=== PATIENT | female | born 1955 | race Caucasian/White ===

== ENCOUNTER 2019-10-27 19:52 | Inpatient (IN) | payer MEDICARE, OTHER ==
[2019-10-27] MEDS ORDERED: NALOXONE 0.4 MG/ML 1 ML VIAL IV PRN (20:41)
[2019-10-27] MEDS ORDERED: ONDANSETRON 4 MG/2 ML VIAL IVP PRN (20:41)
--- NOTE | 2019-10-27 20:43 | ED ---
General Adult HPI - General Chief complaint: Abdominal Pain Stated complaint: Bowel Obstruction Time Seen by Provider: 10/27/19 19:53 Source: patient, family, RN notes reviewed, old records reviewed Mode of arrival: EMS - History of Present Illness Initial comments: 64-year-old female transferred from outside hospital with CT evidence of ileus and chief complaint of abdominal pain. Patient has previous history of ostomy status post reversal. She had an episode approximately one month ago where she had developed a small bowels ashen. This was treated conservatively without surgical intervention. She is presenting today with similar symptoms. She had been transferred for surgical evaluation. Patient stated that her pain is improved with time my evaluation. No history of vomiting. Denies nausea vomiting at the time my evaluation. No fever. - Related Data Home Medications Medication Instructions Recorded Confirmed Amiodarone HCl [Pacerone] 200 mg PO DAILY 09/16/19 09/16/19 Amitriptyline HCl [Elavil] 150 mg PO HS 09/16/19 09/16/19 Atorvastatin [Lipitor] 10 mg PO DAILY 09/16/19 09/16/19 Ergocalciferol [Vitamin D2 50,000 unit PO TU 09/16/19 09/16/19 (DRISDOL)] Folic Acid 1 mg PO DAILY 09/16/19 09/16/19 Furosemide [Lasix] 40 mg PO BID 09/16/19 09/16/19 Loperamide HCl [Loperamide] 4 mg PO BID 09/16/19 09/16/19 Montelukast [Singulair] 10 mg PO 09/16/19 09/16/19 OLANZapine 7.5 mg PO DAILY 09/16/19 09/16/19 Omeprazole [PriLOSEC] 40 mg PO BID 09/16/19 09/16/19 Potassium Chloride [Klor-Con 20] 20 meq PO QID 09/16/19 09/16/19 Pramipexole [Mirapex] 0.5 mg PO TID 09/16/19 09/16/19 Spironolactone 50 mg PO DAILY 09/16/19 09/16/19 Warfarin Sodium 1 mg PO SUMOWEFRSA 09/16/19 09/16/19 Warfarin [Coumadin] 2 mg PO DAILY 09/16/19 09/16/19 oxyCODONE HCL [Roxicodone] 15 mg PO TID PRN 09/16/19 09/16/19 Previous Rx's Medication Instructions Recorded Amoxic-Pot Clav 875-125Mg 1 tab PO Q12HR #20 tab 09/18/19 [Augmentin 875-125] Enoxaparin [Lovenox] 80 mg SQ Q12H #10 syringe 09/18/19 Allergies Allergy/AdvReac Type Severity Reaction Status Date / Time trazodone Allergy Rapid Verified 10/27/19 20:06 Heart Rate morphine AdvReac Unknown Verified 10/27/19 20:06 zolpidem [From Ambien] AdvReac Unknown Verified 10/27/19 20:06 Review of Systems ROS Statement: Those systems with pertinent positive or pertinent negative responses have been documented in the HPI. ROS Other: All systems not noted in ROS Statement are negative. Past Medical History Past Medical History: Chest Pain / Angina, Heart Failure, COPD, Renal Disease History of Any Multi-Drug Resistant Organisms: MRSA Date of last positivie culture/infection: 2016 MDRO Source:: right hand Past Surgical History: Back Surgery, Section, Cholecystectomy, Hysterectomy, Tonsillectomy Additional Past Surgical History / Comment(s): gastric bypass, ostomy reversal. , open heart Past Psychological History: No Psychological Hx Reported Smoking Status: Current every day smoker Past Alcohol Use History: None Reported Past Drug Use History: None Reported General Exam General appearance: alert, in no apparent distress Head exam: Present: atraumatic, normocephalic Eye exam: Present: normal appearance, PERRL ENT exam: Present: normal exam Neck exam: Present: normal inspection. Absent: tenderness, meningismus Respiratory exam: Present: normal lung sounds bilaterally. Absent: respiratory distress Cardiovascular Exam: Present: regular rate, normal rhythm GI/Abdominal exam: Present: soft. Absent: distended, tenderness, guarding Extremities exam: Present: normal inspection, normal capillary refill. Absent: pedal edema Back exam: Present: normal inspection Neurological exam: Present: alert, oriented X3, CN II-XII intact Psychiatric exam: Present: normal affect, normal mood Skin exam: Present: warm, dry, intact. Absent: cyanosis, diaphoretic, erythema Course Vital Signs 10/27/19 20:00 Temperature 98.3 F Pulse Rate 61 Respiratory 18 Rate Blood Pressure 126/83 O2 Sat by Pulse 97 Oximetry Medical Decision Making - Medical Decision Making 64-year-old female transferred for evaluation of illness and concern for developing small bowel obstruction. Patient states she had a bowel movement today and had some preceding diarrhea over the past several days. She denies vomiting. CT was performed at outside institution and was reported as ileus. She had normal CBC, stable hemoglobin. Stable vitals. She was transferred for surgical evaluation. Laboratory testing will be repeated in the morning. Patient will be kept nothing by mouth with IV fluids and pain control. I do not feel that she needs a nasogastric tube at this time. She has been admitted to internal medicine with surgery on consult. Case discussed with Dr. Flores. Disposition Clinical Impression: Abdominal pain, Ileus Disposition: ADMITTED IP TO THIS HOSP Condition: Stable Is patient prescribed a controlled substance at d/c from ED?: No Referrals: Almas Martin MD [Primary Care Provider] - 1-2 days Decision to Admit Reason: Admit from EC Decision Date: 10/27/19 Decision Time: 20:58
[2019-10-27] MEDS: SODIUM CHLORIDE 0.9% 1,000 ML IV SCH (21:43)
[2019-10-27] MEDS: HYDROmorphone 0.5 MG/0.5 ML SYRINGE IVP PRN (21:48)
[2019-10-28] MEDS: HYDROmorphone 0.5 MG/0.5 ML SYRINGE IVP PRN (01:13)
[2019-10-28] MEDS: ACETAMINOPHEN TAB 325 MG TAB PO PRN ×3 (06:00→22:19)
[2019-10-28 09:36] LABS: ALT 15 U/L (4-34); AST 35 U/L (14-36); African American GFR (CKD) >90 (>60 ml/min/1.73 sqM); Albumin 3.8 g/dL (3.5-5.0); Alkaline Phosphatase 100 U/L (38-126); Anion Gap 6 mmol/L; Blood Urea Nitrogen 10 mg/dL (7-17); Calcium 8.9 mg/dL (8.4-10.2); Carbon Dioxide 22 mmol/L (22-30); Chloride 107 mmol/L (98-107); Glucose 91 mg/dL (74-99); Magnesium 1.8 mg/dL (1.6-2.3); Non-African American GFR(CKD) >90 (>60 ml/min/1.73 sqM); Sodium 135 mmol/L (137-145); Total Bilirubin 0.9 mg/dL (0.2-1.3); Total Protein 6.4 g/dL (6.3-8.2)
[2019-10-28 09:40] LABS: Potassium 4.8 mmol/L (3.5-5.1)
--- NOTE | 2019-10-28 10:06 | XR ---
EXAMINATION TYPE: XR abdomen 2V DATE OF EXAM: 10/28/2019 COMPARISON: 09/17/2019 HISTORY: Pain TECHNIQUE: Single supine KUB image of the abdomen is obtained FINDINGS: Small bowel demonstrates no evidence for dilatation or air fluid levels. Gas and fecal material is seen in non-distended colon. No convincing evidence for pneumoperitoneum. No unusual calcifications. The lung bases are clear. The osseous structures are intact. IMPRESSION: 1. Overall nonobstructive bowel gas pattern.
[2019-10-28 10:14] LABS: Basophils % (A) 0 %; Eosinophils # (A) 0.1 k/uL (0-0.7); Eosinophils % (A) 1 %; HCT 41.5 % (34.0-46.0); HGB 13.5 gm/dL (11.4-16.0); Lymphocytes # (A) 1.1 k/uL (1.0-4.8); Lymphocytes % (A) 14 %; MCHC 32.6 g/dL (31.0-37.0); Monocytes # (A) 0.4 k/uL (0-1.0); Monocytes % (A) 5 %; Neutrophils % (A) 78 %; Platelet Count 196 k/uL (150-450); RBC 4.37 m/uL (3.80-5.40); RDW 12.3 % (11.5-15.5); WBC 7.7 k/uL (3.8-10.6)
--- NOTE | 2019-10-28 14:34 | P.GSCN ---
<Lily Raya A - Last Filed: 10/28/19 14:33> History of Present Illness Consult date: 10/28/19 Reason for Consult: ileus Requesting physician: Jaime Taveras History of present illness: CHIEF COMPLAINT: Small bowel obstruction HISTORY OF PRESENT ILLNESS: 64-year-old female who was transferred from [facility] secondary to possible ileus. Patient examined at the bedside with Dr. Gonzalez. She denies abdominal pain. Denies nausea or vomiting. She is passing flatus. PAST MEDICAL HISTORY: See list. PAST SURGICAL HISTORY: See list. SOCIAL HISTORY: No illicit drug use. REVIEW OF SYSTEMS: CONSTITUTIONAL: Denies fever or chills. HEENT: Denies blurred vision, vision changes, or eye pain. Denies hemoptysis ENDOCRINE: Denies heat or cold intolerance. CARDIOVASCULAR: Denies chest pain or pressure. RESPIRATORY: No shortness of breath. GASTROINTESTINAL: See HPI for pertinent findings NEURO: Denies history of seizures. PSYCH: No depression or suicidal ideation HEMATOLOGIC: Denies bleeding disorders. LYMPHATIC: The patient denies any lumps and bumps around the neck. GENITOURINARY: Denies any blood in urine or increased urinary frequency. MUSCULOSKELETAL: Denies myalgias. Denies joint swelling. Denies decreased range of motion beyond patients baseline. SKIN: Denies pruitis. Denies rash. PHYSICAL EXAM: VITAL SIGNS: Reviewed GENERAL: Well-developed in no acute distress. HEENT: No sclera icterus. Extraocular movements grossly intact. Moist buccal mucosa. Head is atraumatic, normocephalic. Hears conversational speech. No nasal drainage. NECK: Supple without lymphadenopathy. CHEST: Non-labored respirations and equal bilateral excursions. CARDIOVASCULAR: Regular rate with regular rhythm. Palpable 2+ radial pulses. ABDOMEN: Soft. Nondistended. Old well healed midline scar and right lower quadrant scar. MUSCULOSKELETAL: No clubbing or cyanosis. NEUROLOGIC: No focal or lateralizing signs. Cranial nerves II through XII grossly intact. PSYCH: Appropriate affect. Alert and oriented to person, place and time. SKIN: Well perfused. Good skin turgor. LABORATORY DATA: WBC 7.7. Hemoglobin 13.5. Platelet count 196. IMAGING: CT abdomen and pelvis completed at outside facility apparently reported evidence of an ileus ASSESSMENT: 1. Abdominal pain, possible ileus 2. Recent hospitalization secondary to ileus versus small bowel obstruction 3. History of Sawyer-en-Y gastric bypass 4. History of diverticulitis with previous bowel resection with colostomy creation and subsequent reversal PLAN: Begin clear liquid diet Will re-evaluate tomorrow Nurse practitioner note has been reviewed by physician. Signing provider agrees with the documented findings, assessment, and plan of care. 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 , open heart, 2 artificial heart valves, right hip replacement 2016 Past Anesthesia/Blood Transfusion Reactions: No Reported Reaction Past Psychological History: No Psychological Hx Reported, Anxiety, Depression Smoking Status: Current every day smoker Past Alcohol Use History: None Reported Past Drug Use History: None Reported Additional Drug Use History / Comment(s): pt states she smokes half a pack per day Medications and Allergies Home Medications Medication Instructions Recorded Confirmed Type Amiodarone HCl [Pacerone] 200 mg PO DAILY 09/16/19 10/27/19 History Amitriptyline HCl [Elavil] 150 mg PO 09/16/19 10/27/19 History Atorvastatin [Lipitor] 10 mg PO DAILY 09/16/19 10/27/19 History Ergocalciferol [Vitamin D2 50,000 unit PO TU 09/16/19 10/27/19 History (DRISDOL)] Folic Acid 1 mg PO DAILY 09/16/19 10/27/19 History Furosemide [Lasix] 40 mg PO BID 09/16/19 10/27/19 History Loperamide HCl [Loperamide] 4 mg PO BID 09/16/19 10/27/19 History Montelukast [Singulair] 10 mg PO 09/16/19 10/27/19 History OLANZapine 7.5 mg PO DAILY 09/16/19 10/27/19 History Omeprazole [PriLOSEC] 40 mg PO BID 09/16/19 10/27/19 History Potassium Chloride [Klor-Con 20] 20 meq PO QID 09/16/19 10/27/19 History Pramipexole [Mirapex] 0.5 mg PO TID 09/16/19 10/27/19 History Spironolactone 50 mg PO DAILY 09/16/19 10/27/19 History Warfarin Sodium 1 mg PO SUMOWEFRSA 09/16/19 10/27/19 History Warfarin [Coumadin] 2 mg PO DAILY 09/16/19 10/27/19 History oxyCODONE HCL [oxyCODONE HCL (IR)] 10 mg PO BID PRN 10/27/19 10/27/19 History Allergies Allergy/AdvReac Type Severity Reaction Status Date / Time trazodone Allergy Rapid Verified 10/27/19 21:38 Heart Rate morphine AdvReac Unknown Verified 10/27/19 21:38 zolpidem [From Ambien] AdvReac Unknown Verified 10/27/19 21:38 Surgical - Exam Vital Signs Temp Pulse Resp BP Pulse Ox 98.3 F 61 18 126/83 97 10/27/19 20:00 10/27/19 20:00 10/27/19 20:00 10/27/19 20:00 10/27/19 20:00 Results - Labs 10/28/19 08:34 10/28/19 08:34 Abnormal Lab Results - Last 24 Hours (Table) 10/28/19 Range/Units 08:34 Sodium 135 L (137-145) mmol/L Diabetes panel 10/28/19 Range/Units 08:34 Sodium 135 L (137-145) mmol/L Potassium 4.8 (3.5-5.1) mmol/L Chloride 107 (98-107) mmol/L Carbon Dioxide 22 (22-30) mmol/L BUN 10 (7-17) mg/dL Creatinine 0.66 (0.52-1.04) mg/dL Glucose 91 (74-99) mg/dL Calcium 8.9 (8.4-10.2) mg/dL AST 35 (14-36) U/L ALT 15 (4-34) U/L Alkaline Phosphatase 100 (38-126) U/L Total Protein 6.4 (6.3-8.2) g/dL Albumin 3.8 (3.5-5.0) g/dL Calcium panel 10/28/19 Range/Units 08:34 Calcium 8.9 (8.4-10.2) mg/dL Albumin 3.8 (3.5-5.0) g/dL Pituitary panel 10/28/19 Range/Units 08:34 Sodium 135 L (137-145) mmol/L Potassium 4.8 (3.5-5.1) mmol/L Chloride 107 (98-107) mmol/L Carbon Dioxide 22 (22-30) mmol/L BUN 10 (7-17) mg/dL Creatinine 0.66 (0.52-1.04) mg/dL Glucose 91 (74-99) mg/dL Calcium 8.9 (8.4-10.2) mg/dL Adrenal panel 10/28/19 Range/Units 08:34 Sodium 135 L (137-145) mmol/L Potassium 4.8 (3.5-5.1) mmol/L Chloride 107 (98-107) mmol/L Carbon Dioxide 22 (22-30) mmol/L BUN 10 (7-17) mg/dL Creatinine 0.66 (0.52-1.04) mg/dL Glucose 91 (74-99) mg/dL Calcium 8.9 (8.4-10.2) mg/dL Total Bilirubin 0.9 (0.2-1.3) mg/dL AST 35 (14-36) U/L ALT 15 (4-34) U/L Alkaline Phosphatase 100 (38-126) U/L Total Protein 6.4 (6.3-8.2) g/dL Albumin 3.8 (3.5-5.0) g/dL <Lupis Gonzalez - Last Filed: 10/30/19 22:23> History of Present Illness History of present illness: Patient seen and evaluated with above. Patient denies any active abdominal pain at this time. She does report some improvement of her symptoms. Otherwise, patient presents with bilateral lower extremity edema over 2-3+ with hyperemia suspicious for cellulitis. May benefit from wrapping of the bilateral lower extremities including vascular assessment. At this time, conservative man agement for ileus. Surgical - Exam Vital Signs Temp Pulse Resp BP Pulse Ox 98.3 F 61 18 126/83 97 10/27/19 20:00 10/27/19 20:00 10/27/19 20:00 10/27/19 20:00 10/27/19 20:00 Results - Labs 10/28/19 08:34 10/28/19 08:34 Abnormal Lab Results - Last 24 Hours (Table) 10/30/19 Range/Units 08:24 PT 20.2 H (9.0-12.0) sec INR 2.1 H (<1.2) Thyroid panel 10/29/19 Range/Units 23:30 TSH 4.680 (0.465-4.680) mIU/L Pituitary panel 10/29/19 Range/Units 23:30 TSH 4.680 (0.465-4.680) mIU/L Assessment and Plan (1) Bilateral lower leg cellulitis Current Visit: Yes Status: Acute Code(s): L03.116 - CELLULITIS OF LEFT LOWER LIMB; L03.115 - CELLULITIS OF RIGHT LOWER LIMB SNOMED Code(s): 483856153 (2) Ileus Current Visit: Yes Status: Acute Code(s): K56.7 - ILEUS, UNSPECIFIED SNOMED Code(s): 706020996
[2019-10-28] MEDS: AMPICILLIN-SULBACTAM 3 GM in SODIUM CHLORIDE 0.9% 100 ML IVPB SCH (17:03)
[2019-10-29] MEDS: SODIUM CHLORIDE 0.9% 1,000 ML IV SCH ×3 (00:02→20:28)
[2019-10-29] MEDS: AMPICILLIN-SULBACTAM 3 GM in SODIUM CHLORIDE 0.9% 100 ML IVPB SCH ×5 (00:20→23:57)
[2019-10-29] MEDS: HYDROmorphone 0.5 MG/0.5 ML SYRINGE IVP PRN ×2 (00:20→17:53)
--- NOTE | 2019-10-29 00:34 | P.HPIM ---
History of Present Illness H&P Date: 10/28/19 Chief Complaint: Abdominal pain Patient is been 63-year-old female with a known history of paroxysmal atrial fibrillation on anticoagulation with Coumadin, chronic CHF EF unknown, history of CVA/left pelvic fullness, history of DVT, fibromyalgia, history of DVT, asthma/COPD currently everyday smoker and history of aortic and mitral valve replacement, history of gastric bypass surgery and history of bowel obstruction status post resection and colostomy and reversal initially presented to [facility] with complaints of abdominal pain. Patient does have history of ostomy status post reversal due to bowel obstruction. Patient had previous episodes of bowel obstruction was treated conservatively. Patient was transferred to [facility] for surg ical evaluation. Otherwise patient denied any fever or chills. Patient does have nausea and no episodes of vomiting. No fever no chills. Patient was also having bilateral lower extremity leg swelling and redness. Previously was treated with Unasyn and was sent home on 09/18/2019 with antibiotics in the form of Augmentin. Laboratory data reviewed Abdominal x-ray showed overall non-obstructive bowel gas pattern Review of Systems Constitutional: Patient denies any fever or chills . No generalized weakness or weight loss. Abdomen: Patient does have abdominal pain with nausea. No episodes of vomiting. No diarrhea. No constipation.. Cardiovascular: Patient denies any chest pain or short of breath no palpitations. Respiratory: patient denied any cough is from production. No shortness of breath Neurologic: Patient denied any numbness or tingling headache. Musculoskeletal: Patient denies any complaints of joint swelling or deformity. Skin: Negative Psychiatric: Negative Endocrine: No heat or cold intolerance. No recent weight gain. Genitourinary: No dysuria or hematuria. All other 14 point ROS negative except the above Past Medical History Past Medical History: Atrial Fibrillation, Asthma, Chest Pain / Angina, Heart Failure, COPD, CVA/TIA, Deep Vein Thrombosis (DVT), Fibromyalgia, Memory Impairment, Pneumonia, Renal Disease Additional Past Medical History / Comment(s): past DVT in right upper arm and groin, CVA 2012 caused forgetfulness,RLS, History of Any Multi-Drug Resistant Organisms: MRSA Date of last positivie culture/infection: 2016 MDRO Source:: right hand Past Surgical History: Back Surgery, Bariatric Surgery, Cardiac Valve Replacemen t, Section, Cholecystectomy, Hysterectomy, Joint Replacement, Tonsillectomy Additional Past Surgical History / Comment(s): gastric bypass, ostomy reversal. , open heart, 2 artificial heart valves, right hip replacement 2017 Past Anesthesia/Blood Transfusion Reactions: No Reported Reaction Past Psychological History: No Psychological Hx Reported, Anxiety, Depression Smoking Status: Current every day smoker Past Alcohol Use History: None Reported Past Drug Use History: None Reported Additional Drug Use History / Comment(s): pt states she smokes half a pack per day Medications and Allergies Home Medications Medication Instructions Recorded Confirmed Type Amiodarone HCl [Pacerone] 200 mg PO DAILY 09/16/19 10/27/19 History Amitriptyline HCl [Elavil] 150 mg PO HS 09/16/19 10/27/19 History Atorvastatin [Lipitor] 10 mg PO DAILY 09/16/19 10/27/19 History Ergocalciferol [Vitamin D2 50,000 unit PO TU 09/16/19 10/27/19 History (DRISDOL)] Folic Acid 1 mg PO DAILY 09/16/19 10/27/19 History Furosemide [Lasix] 40 mg PO BID 09/16/19 10/27/19 History Loperamide HCl [Loperamide] 4 mg PO BID 09/16/19 10/27/19 History Montelukast [Singulair] 10 mg PO HS 09/16/19 10/27/19 History OLANZapine 7.5 mg PO DAILY 09/16/19 10/27/19 History Omeprazole [PriLOSEC] 40 mg PO BID 09/16/19 10/27/19 History Potassium Chloride [Klor-Con 20] 20 meq PO QID 09/16/19 10/27/19 History Pramipexole [Mirapex] 0.5 mg PO TID 09/16/19 10/27/19 History Spironolactone 50 mg PO DAILY 09/16/19 10/27/19 History Warfarin Sodium 1 mg PO SUMOWEFRSA 09/16/19 10/27/19 History Warfarin [Coumadin] 2 mg PO DAILY 09/16/19 10/27/19 History oxyCODONE HCL [oxyCODONE HCL (IR)] 10 mg PO BID PRN 10/27/19 10/27/19 History Allergies Allergy/AdvReac Type Severity Reaction Status Date / Time trazodone Allergy Rapid Verified 10/27/19 21:38 Heart Rate morphine AdvReac Unknown Verified 10/27/19 21:38 zolpidem [From Ambien] AdvReac Unknown Verified 10/27/19 21:38 Physical Exam Vitals: Vital Signs Temp Pulse Resp BP Pulse Ox 10/28/19 19:52 98.5 F 61 18 119/74 99 10/28/19 16:00 59 L 17 10/28/19 13:45 97.9 F 59 L 17 109/62 96 10/28/19 08:00 59 L 16 10/28/19 07:00 97 F L 59 L 16 116/55 96 10/28/19 04:13 17 10/28/19 03:35 97.6 F 68 17 128/78 97 10/28/19 01:10 17 Intake and Output 10/28/19 10/28/19 10/29/19 14:59 22:59 06:59 Output Total 200 Balance -200 Output: Urine 200 Other: # Voids 1 # Bowel Movements 1 PHYSICAL EXAMINATION: Patient is lying in the bed comfortably, no acute distress, awake alert and oriented.. HEENT: Normocephalic. Neck is supple. Pupils reactive. Nostrils clear. Oral cavity is moist. Ears reveal no drainage. Neck reveals no JVD, carotid bruits, or thyromegaly. CHEST EXAMINATION: Trachea is central. Symmetrical expansion. Lung morales clear to auscultation and percussion. CARDIAC: Normal S1, S2 with no gallops. No murmurs ABDOMEN: Soft. no tenderness. No guarding no rigidity. Bowel sounds normal. No organomegaly. No abdominal bruits. Extremities: reveal no edema. No clubbing or cyanosis Neurologically awake, alert, oriented x3 with well-coordinated movements. No focal deficits noted Skin: No rash or skin lesions. Psychiatric: Coperative. Nonsuicidal Musculoskeletal: No joint swelling or deformity. Normal range of motion. Results CBC & Chem 7: 10/28/19 08:34 10/28/19 08:34 Labs: Abnormal Lab Results - Last 24 Hours (Table) 10/28/19 Range/Units 08:34 Sodium 135 L (137-145) mmol/L Thrombosis Risk Factor Assmnt - DVT/VTE Prophylaxis DVT/VTE Prophylaxis: Pharmacologic Prophylaxis ordered - Choose All That Apply Each Factor Represents 1 point: Abnormal pulmonary function (COPD), Obesity (BMI >25), Swollen legs (current) Each Risk Factor Represents 2 Points: Age 61-74 years Each Risk Factor Represents 3 Points: History of DVT/PE Thrombosis Risk Factor Assessment Total Risk Factor Score: 8 Thrombosis Risk Factor Assessment Level: High Risk Assessment and Plan Assessment: Abdominal pain secondary to ileus currently resolved. Bilateral lower extremity cellulitis Previous history of ostomy and reversal due to bowel obstruction Paroxysmal atrial fibrillation on anticoagulation with Coumadin, Chronic CHF with ejection fraction unknown History of CVA/TIA with memory impairment COPD not in exacerbation History of DVT History of gastric bypass Osteoarthritis Currently everyday smoker Plan: Patient will be continued on IV hydration. Patient did have a bowel movement last night and is currently passing flatus. Continue with symptomatic manuel gement for pain. Antibiotics started in the form of Unasyn. ID and surgery was consulted. Continue to follow closely. Coumadin monitoring. Continue with home medications and further recommendations based on the clinical course. Prognosis guarded with multiple medical problems and comorbid conditions. Time with Patient: Greater than 30
--- NOTE | 2019-10-29 00:59 | P.CONS ---
History of Present Illness - Reason for Consult Consult date: 10/28/19 Bilateral lower extremity cellulitis Requesting physician: Angela Flores - Chief Complaint Abdominal pain and vomiting and lower extremity swelling x few days - History of Present Illness Patient is a 64 year female with a past medical history significant for bowel obstruction requiring surgical resection and colostomy subsequently worsened and afterwards he did have multiple episodes of small bowel obstruction she was recently admitted at this facility in August the patient did have small bowel obstruction and lower eczema cellulitis that was treated conservatively patient improvement subsequent discharged patient now presented back to the hospital she complains of abdominal pain and vomiting of 2 days' duration abdominal pain has been mostly in the upper abdominal area more of a colicky in nature about 6-7 out of 10 and no radiation patient did have episodes of vomiting and no diarrhea patient also noticed having residual lower extremity with some redness patient complaining of some dull aching pain to the leg 3-4 out of 10 and no radiation currently with no open wound or any drainage patient was evaluated at the outside facility and subsequently has been transferred to [facility] for further management x-rays done this admission showing a nonobstructive gas pattern patient did have normal white count and no fever infectious disease was consulted for management of antibiotic therapy Review of Systems Positive point has been mentioned in the HPI rest of the systems are negative Past Medical History Past Medical History: Atrial Fibrillation, Asthma, Chest Pain / Angina, Heart Failure, COPD, CVA/TIA, Deep Vein Thrombosis (DVT), Fibromyalgia, Memory Impairment, Pneumonia, Renal Disease Additional Past Medical History / Comment(s): past DVT in right upper arm and groin, 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 , open heart, 2 artificial heart valves, right hip replacement 2017 Past Anesthesia/Blood Transfusion Reactions: No Reported Reaction Past Psychological History: No Psychological Hx Reported, Anxiety, Depression Smoking Status: Current every day smoker Past Alcohol Use History: None Reported Past Drug Use History: None Reported Additional Drug Use History / Comment(s): pt states she smokes half a pack per day Medications and Allergies Home Medications Medication Instructions Recorded Confirmed Type Amiodarone HCl [Pacerone] 200 mg PO DAILY 09/16/19 10/27/19 History Amitriptyline HCl [Elavil] 150 mg PO HS 09/16/19 10/27/19 History Atorvastatin [Lipitor] 10 mg PO DAILY 09/16/19 10/27/19 History Ergocalciferol [Vitamin D2 50,000 unit PO TU 09/16/19 10/27/19 History (DRISDOL)] Folic Acid 1 mg PO DAILY 09/16/19 10/27/19 History Furosemide [Lasix] 40 mg PO BID 09/16/19 10/27/19 History Loperamide HCl [Loperamide] 4 mg PO BID 09/16/19 10/27/19 History Montelukast [Singulair] 10 mg PO HS 09/16/19 10/27/19 History OLANZapine 7.5 mg PO DAILY 09/16/19 10/27/19 History Omeprazole [PriLOSEC] 40 mg PO BID 09/16/19 10/27/19 History Potassium Chloride [Klor-Con 20] 20 meq PO QID 09/16/19 10/27/19 History Pramipexole [Mirapex] 0.5 mg PO TID 09/16/19 10/27/19 History Spironolactone 50 mg PO DAILY 09/16/19 10/27/19 History Warfarin Sodium 1 mg PO SUMOWEFRSA 09/16/19 10/27/19 History Warfarin [Coumadin] 2 mg PO DAILY 09/16/19 10/27/19 History oxyCODONE HCL [oxyCODONE HCL (IR)] 10 mg PO BID PRN 10/27/19 10/27/19 History Allergies Allergy/AdvReac Type Severity Reaction Status Date / Time trazodone Allergy Rapid Verified 10/27/19 21:38 Heart Rate morphine AdvReac Unknown Verified 10/27/19 21:38 zolpidem [From Ambien] AdvReac Unknown Verified 10/27/19 21:38 Physical Exam Vitals: Vital Signs Temp Pulse Pulse Resp BP BP Pulse Ox 10/28/19 13:45 97.9 F 59 L 17 109/62 96 10/28/19 08:00 59 L 16 10/28/19 07:00 97 F L 59 L 16 116/55 96 10/28/19 04:13 17 10/28/19 03:35 97.6 F 68 17 128/78 97 10/28/19 01:10 17 10/27/19 23:08 98.0 F 62 18 122/85 96 10/27/19 22:40 18 10/27/19 21:49 98.2 F 62 18 109/60 96 10/27/19 20:00 98.3 F 61 18 126/83 97 Intake and Output 10/27/19 10/28/19 10/28/19 22:59 06:59 14:59 Other: # Voids 2 # Bowel Movements 1 Weight 86.183 kg GENERAL DESCRIPTION: An elderly female lying in bed, no distress. No tachypnea or accessory muscle of respiration use. HEENT: Shows Pallor , no scleral icterus. Oral mucous membrane is dry. No pharyngeal erythema or thrush NECK: Trachea central, no thyromegaly. LUNGS: Unlabored breathing. Clear to auscultation anteriorly. No wheeze or crackle. HEART: S1, S2, regular rate and rhythm. No loud murmur ABDOMEN: Soft, no tenderness , guarding or rigidity, no organomegaly EXTREMITIES: Diffuse swelling of lower extremity with erythema slightly warm to touch no open wound or any drainage SKIN: No rash, no masses palpable. NEUROLOGICAL: The patient is awake, alert, oriented x3, mood and affect normal. Results CBC & Chem 7: 10/28/19 08:34 10/28/19 08:34 Labs: Abnormal Lab Results - Last 24 Hours (Table) 10/28/19 Range/Units 08:34 Sodium 135 L (137-145) mmol/L Assessment and Plan Assessment: 1-- patient with bilateral lower extremity cellulitis in this patient who did have diffuse swelling and redness warmth to touch likely streptococcal disease in this patient admitted to the hospital with abdominal pain and has been diagnosed with a bowel obstruction currently being treated conservatively (1) Bilateral lower leg cellulitis Current Visit: Yes Status: Acute Code(s): L03.116 - CELLULITIS OF LEFT LOWER LIMB; L03.115 - CELLULITIS OF RIGHT LOWER LIMB SNOMED Code(s): 490475152 Plan: 1- marked the area of the redness both lower extremity 2- Liborio wrap to both legs from just above the toe to below the knee 3- Unasyn 3 g every 6 hours We will follow on clinical condition and cultures to further adjust medication if needed Thank you for this consultation will follow this patient with you Time with Patient: Greater than 30
[2019-10-29 01:13] LABS: INR 2.1 (<1.2); Prothrombin Time 20.6 sec (9.0-12.0)
[2019-10-29 08:59] LABS: INR 2.3 (<1.2); Prothrombin Time 21.9 sec (9.0-12.0)
[2019-10-29] MEDS: OLANZapine 5 MG TAB PO SCH (09:12)
[2019-10-29] MEDS: ATORVASTATIN 10 MG TAB PO SCH (09:13)
[2019-10-29] MEDS: PRAMIPEXOLE 0.5 MG TAB PO SCH ×3 (09:13→20:28)
[2019-10-29] MEDS: POTASSIUM CHLORIDE ER 20 MEQ TAB.ER PO SCH ×4 (09:13→20:28)
[2019-10-29] MEDS: PANTOPRAZOLE 40 MG TABLET PO SCH ×2 (09:13→20:28)
[2019-10-29] MEDS: SPIRONOLACTONE 25 MG TAB PO SCH (09:13)
[2019-10-29] MEDS: AMIODARONE 200 MG TAB PO SCH (09:13)
[2019-10-29] MEDS: FOLIC ACID 1 MG TAB PO SCH (09:13)
[2019-10-29] MEDS: FUROSEMIDE 40 MG TAB PO SCH ×2 (09:13→20:28)
--- NOTE | 2019-10-29 14:32 | P.PN ---
Subjective Progress Note Date: 10/29/19 CHIEF COMPLAINT: Ileus HISTORY OF PRESENT ILLNESS: The patient is a 64-year-old female who was admitted for ileus. She has chronic diarrhea since January 03 of last year. Surgery was done in [place]. Her gastric bypass was 15 years ago in 2003 to 2004, maybe 2002 per her recollection. She had laparoscopic gastric bypass. She had open heart surgery in 1999 with multiple mechanical valves. Dietary restrictions she reports no prior education. She denies dietary education for her gastric bypass. Her highest weight was 300 pounds. Her lowest weight was 140 pounds. She reports 50 pound weight gain. 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 She reporst she felt the best when she was 155 pounds. She reports ruptured diverticulitis 2 years ago with GI bleed including sepsis. She had a colostomy for 2 years ago and with recent reversal last year. She denies any abdominal pain. She is passing flatus. ROS: No reports of nausea and vomiting. No fevers or chills. No new chest pain. No productive sputum PHYSICAL EXAM: VITAL SIGNS: Reviewed CONSTITUTIONAL: Well developed and in no acute distress. EYES: Conjuctivae without sclera icterus. Extraocular movements grossly intact. HEAD, EARS, NOSE, THROAT: Moist buccal mucosa. Head is atraumatic, normocephalic. Hears conversational speech. No nasal drainage. RESPIRATORY: Non-labored respirations and equal bilateral excursions. CARDIOVASCULAR: Palpable 2+ radial pulses. ABDOMEN: Soft. No peritonitis. MUSCULOSKELETAL: No clubbing. No cyanosis. Liborio wraps from feet to the knees bilaterally. SKIN: Good skin turgor. Well perfused. NEUROLOGIC: Cranial nerves II through XII grossly intact. No focal or lateralizing signs. PSYCH: Appropriate affect. Alert and oriented to person, place and time. CLINICAL LABS: White blood cell count normal 7.7. ASSESSMENT: 1. Ileus PLAN: 1. Recommend bariatric dietitian. 2. Recommend bariatric labs. 3. Recommend adjustment of diet to sugars less than 6 g daily, low carb, high protein for dumping syndrome 4. Recommend consistent carbohydrate diet Objective - Vital Signs Vital signs: Vital Signs Temp 98.7 F 10/29/19 13:48 Pulse 67 10/29/19 13:48 Resp 16 10/29/19 13:48 BP 136/74 10/29/19 13:48 Pulse Ox 97 10/29/19 13:48 Intake & Output 10/28/19 10/29/19 10/29/19 18:59 06:59 18:59 Output Total 200 Balance -200 Output: Urine 200 Other: # Voids 2 # Bowel Movements 1 1 - Labs CBC & Chem 7: 10/28/19 08:34 10/28/19 08:34 Labs: Abnormal Lab Results - Last 24 Hours (Table) 10/29/19 10/29/19 Range/Units 00:43 08:34 PT 20.6 H 21.9 H (9.0-12.0) sec INR 2.1 H 2.3 H (<1.2) Assessment and Plan (1) Bilateral lower leg cellulitis Current Visit: Yes Status: Acute Code(s): L03.116 - CELLULITIS OF LEFT LOWER LIMB; L03.115 - CELLULITIS OF RIGHT LOWER LIMB SNOMED Code(s): 256684053 (2) Ileus Current Visit: Yes Status: Acute Code(s): K56.7 - ILEUS, UNSPECIFIED SNOMED Code(s): 042000581
[2019-10-29 16:04] VITALS: BMI 33.6
--- NOTE | 2019-10-29 17:23 | PN ---
PROGRESS NOTE DATE OF SERVICE: 10/29/2019 REASON FOR FOLLOWUP: Bilateral lower extremity cellulitis. INTERVAL HISTORY: Patient is currently afebrile. The patient is feeling better. Breathing comfortably. Denies any abdominal pain. No further vomiting. Pain and discomfort to the leg has slightly decreased. PHYSICAL EXAMINATION: Blood pressure 136/74 with a pulse of 67, temperature 98.7, she is 97% on room air. General description is an elderly female lying in bed in no distress. Respiratory system: Unlabored breathing, clear to auscultation anteriorly. Heart S1, S2 heard. Regular rate and rhythm. Abdomen is soft, no tenderness. Leg swelling has slightly decreased. LABS: INR is 2.3. DIAGNOSTIC IMPRESSION AND PLAN: Patient with bilateral lower extremity cellulitis with diffuse swelling and redness. Patient seemed to have clinically responded to Unasyn, to continue along with Liborio wrap to keep the swelling down and we will monitor clinical course closely. MMODL / IJN: [id number] /
[2019-10-29] MEDS: WARFARIN 2 MG TAB PO SCH (17:47)
[2019-10-29] MEDS: WARFARIN 1 MG TAB PO SCH (18:22)
[2019-10-29] MEDS: AMITRIPTYLINE HCL 50 MG TAB PO SCH (20:28)
[2019-10-29] MEDS: MONTELUKAST 10 MG TAB PO SCH (20:28)
--- NOTE | 2019-10-29 23:59 | P.PN ---
Subjective Progress Note Date: 10/29/19 Patient is been 63-year-old female with a known history of paroxysmal atrial fibrillation on anticoagulation with Coumadin, chronic CHF EF unknown, history of CVA/left pelvic fullness, history of DVT, fibromyalgia, history of DVT, asthma/COPD currently everyday smoker and history of aortic and mitral valve replacement, history of gastric bypass surgery and history of bowel obstruction status post resection and colostomy and reversal initially presented to [facility] with complaints of abdominal pain. Patient does have history of ostomy status post reversal due to bowel obstruction. Patient had previous episodes of bowel obstruction was treated conservatively. Patient was transferred to [facility] for surgical evaluation. Otherwise patient denied any fever or chills. Patient does have nausea and no episodes of vomiting. No fever no chills. Patient was also having bilateral lower extremity leg swelling and redness. Previously was treated with Unasyn and was sent home on 09/18/2019 with antibiotics in the form of Augmentin. Laboratory data reviewed Abdominal x-ray showed overall non-obstructive bowel gas pattern 10/29/2019 Patient is currently lying in bed comfortably. Tolerating oral diet. Did have a bowel movement and ileus has resolved. Otherwise patient is being continued on Unasyn for bilateral lower acuity cellulitis. Redness is improving today. Swelling is better as well. Patient is being continued on oral Lasix as per home dose. Anticipate discharge the next 24 hours with ID final recommendations. Current medications reviewed. Objective - Vital Signs Vital signs: Vital Signs Temp 98.1 F 10/29/19 19:32 Pulse 59 L 10/29/19 19:32 Resp 16 10/29/19 19:32 BP 124/70 10/29/19 19:32 Pulse Ox 96 10/29/19 19:32 Intake & Output 10/29/19 10/29/19 10/30/19 06:59 18:59 06:59 Weight 86.183 kg Other: # Voids 2 3 # Bowel Movements 1 1 3 - Labs CBC & Chem 7: 10/28/19 08:34 10/28/19 08:34 Labs: Abnormal Lab Results - Last 24 Hours (Table) 10/29/19 10/29/19 Range/Units 00:43 08:34 PT 20.6 H 21.9 H (9.0-12.0) sec INR 2.1 H 2.3 H (<1.2) Assessment and Plan Assessment: Abdominal pain secondary to ileus currently resolved. Bilateral lower extremity cellulitis Previous history of ostomy and reversal due to bowel obstruction Paroxysmal atrial fibrillation on anticoagulation with Coumadin, Chronic CHF with ejection fraction unknown History of CVA/TIA with memory impairment COPD not in exacerbation History of DVT History of gastric bypass Osteoarthritis Currently everyday smoker Plan: Patient will be continued on IV hydration. Patient did have a bowel movement last night and is currently passing flatus. Continue with symptomatic management for pain. Antibiotics started in the form of Unasyn. ID and surgery is following.. Continue to follow closely. Coumadin monitoring. Continue with home medications and further recommendations based on the clinical course. Prognosis guarded with multiple medical problems and comorbid conditions. Time with Patient: Greater than 30
[2019-10-30] MEDS: AMPICILLIN-SULBACTAM 3 GM in SODIUM CHLORIDE 0.9% 100 ML IVPB SCH ×4 (05:26→23:23)
[2019-10-30 06:42] LABS: Glucose,Whole Blood 99 mg/dL (75-99)
[2019-10-30] MEDS: FOLIC ACID 1 MG TAB PO SCH (08:10)
[2019-10-30] MEDS: PANTOPRAZOLE 40 MG TABLET PO SCH ×2 (08:10→21:10)
[2019-10-30] MEDS: ATORVASTATIN 10 MG TAB PO SCH (08:10)
[2019-10-30] MEDS: AMIODARONE 200 MG TAB PO SCH (08:10)
[2019-10-30] MEDS: POTASSIUM CHLORIDE ER 20 MEQ TAB.ER PO SCH ×4 (08:10→21:10)
[2019-10-30] MEDS: FUROSEMIDE 40 MG TAB PO SCH ×2 (08:10→21:10)
[2019-10-30] MEDS: SPIRONOLACTONE 25 MG TAB PO SCH (08:10)
[2019-10-30] MEDS: PRAMIPEXOLE 0.5 MG TAB PO SCH ×3 (08:11→21:10)
[2019-10-30] MEDS: OLANZapine 5 MG TAB PO SCH (08:11)
[2019-10-30 09:01] LABS: INR 2.1 (<1.2); Prothrombin Time 20.2 sec (9.0-12.0)
[2019-10-30] MEDS: SODIUM CHLORIDE 0.9% 1,000 ML IV SCH (11:25)
[2019-10-30] MEDS: HYDROmorphone 0.5 MG/0.5 ML SYRINGE IVP PRN ×2 (13:16→20:07)
--- NOTE | 2019-10-30 14:00 | P.PN ---
Subjective Progress Note Date: 10/30/19 CHIEF COMPLAINT: Ileus HISTORY OF PRESENT ILLNESS: The patient is a 64-year-old female who was admitted for ileus. She reports stomach ache 7/10 today and yellow stools after eating strawberries. She does not like the protein shakes. ROS: No fevers or chills. No new chest pain. No productive sputum PHYSICAL EXAM: VITAL SIGNS: Reviewed CONSTITUTIONAL: Well developed and in no acute distress. EYES: Conjuctivae without sclera icterus. Extraocular movements grossly intact. HEAD, EARS, NOSE, THROAT: Moist buccal mucosa. Head is atraumatic, normocephalic. Hears conversational speech. No nasal drainage. RESPIRATORY: Non-labored respirations and equal bilateral excursions. CARDIOVASCULAR: Palpable 2+ radial pulses. ABDOMEN: Soft. Mild tenderness. No peritonitis. MUSCULOSKELETAL: No clubbing. No cyanosis. Liborio wraps from feet to the knees bilaterally. SKIN: Good skin turgor. Well perfused. NEUROLOGIC: Cranial nerves II through XII grossly intact. No focal or lateralizing signs. PSYCH: Appropriate affect. Alert and oriented to person, place and time. CLINICAL LABS: Bariatric labs pending. ASSESSMENT: 1. Ileus PLAN: 1. Recommend bariatric dietitian. 2. Will need to adjust diet. 3. Discontinue protein shakes. Objective - Vital Signs Vital signs: Vital Signs Temp 97.5 F L 10/30/19 07:00 Pulse 61 10/30/19 07:00 Resp 18 10/30/19 07:00 BP 134/79 10/30/19 07:00 Pulse Ox 96 10/30/19 07:00 Intake & Output 10/29/19 10/30/19 10/30/19 18:59 06:59 18:59 Weight 86.183 kg Other: Voiding Method Toilet # Voids 5 # Bowel Movements 1 3 - Labs CBC & Chem 7: 10/28/19 08:34 10/28/19 08:34 Labs: Abnormal Lab Results - Last 24 Hours (Table) 10/30/19 Range/Units 08:24 PT 20.2 H (9.0-12.0) sec INR 2.1 H (<1.2) Assessment and Plan (1) History of gastric bypass Current Visit: Yes Status: Acute Code(s): Z98.84 - BARIATRIC SURGERY STATUS SNOMED Code(s): 801708562 (2) Abdominal pain Current Visit: Yes Status: Acute Code(s): R10.9 - UNSPECIFIED ABDOMINAL PAIN SNOMED Code(s): 21618208 (3) Bilateral lower leg cellulitis Current Visit: Yes Status: Acute Code(s): L03.116 - CELLULITIS OF LEFT LOWER LIMB; L03.115 - CELLULITIS OF RIGHT LOWER LIMB SNOMED Code(s): 899019496 (4) Ileus Current Visit: Yes Status: Acute Code(s): K56.7 - ILEUS, UNSPECIFIED SNOME D Code(s): 002647887
[2019-10-30] MEDS: WARFARIN 1 MG TAB PO SCH (17:16)
[2019-10-30] MEDS: WARFARIN 2 MG TAB PO SCH (17:17)
[2019-10-30] MEDS: MONTELUKAST 10 MG TAB PO SCH (21:10)
[2019-10-30] MEDS: AMITRIPTYLINE HCL 50 MG TAB PO SCH (21:11)
--- NOTE | 2019-10-30 23:35 | P.PN ---
Subjective Progress Note Date: 10/30/19 Principal diagnosis: Ileus Bilateral lower extremity cellulitis. Patient is been 63-year-old female with a known history of paroxysmal atrial fibrillation on anticoagulation with Coumadin, chronic CHF EF unknown, history of CVA/left pelvic fullness, history of DVT, fibromyalgia, history of DVT, asthma/COPD currently everyday smoker and history of aortic and mitral valve replacement, history of gastric bypass surgery and history of bowel obstruction status post resection and colostomy and reversal initially presented to [facility] with complaints of abdominal pain. Patient does have history of ostomy status post reversal due to bowel obstruction. Patient had previous episodes of bowel obstruction was treated conservatively. Patient was transferred to [facility] for surgical evaluation. Otherwise patient denied any fever or chills. Patient does have nausea and no episodes of vomiting. No fever no chills. Patient was also having bilateral lower extremity leg swelling and redness. Previously was treated with Unasyn and was sent home on 09/18/2019 with antibiotics in the form of Augmentin. Laboratory data reviewed Abdominal x-ray showed overall non-obstructive bowel gas pattern 10/29/2019 Patient is currently lying in bed comfortably. Tolerating oral diet. Did have a bowel movement and ileus has resolved. Otherwise patient is being continued on Unasyn for bilateral lower acuity cellulitis. Redness is improving today. Swelling is better as well. Patient is being continued on oral Lasix as per home dose. Anticipate discharge the next 24 hours with ID final recommendations. 10/30/2019 Patient is currently lying in the bed comfortably. Denied any complaints of abdominal pain. No nausea vomiting or abdominal pain or diarrhea. Tolerating oral diet. Ileus has resolved. Bariatric dietitian was consulted by general surgery. Patient is being continued on antibiotics in the form of cefazolin for bilateral lower extremity cellulitis.. ID is following. Patient has been afebrile. Leg swelling is improved. Liborio wrap. No headache or dizziness or lightheadedness. Current medications reviewed. Objective - Vital Signs Vital signs: Vital Signs Temp 97.7 F 10/30/19 15:00 Pulse 61 10/30/19 15:00 Resp 18 10/30/19 15:00 BP 121/73 10/30/19 15:00 Pulse Ox 94 L 10/30/19 15:00 Intake & Output 10/30/19 10/30/19 10/31/19 06:59 18:59 06:59 Intake Total 800 Balance 800 Intake: IV 800 Ampicillin-Sulbactam 3 gm 200 In Sodium Chloride 0.9% 100 ml @ 200 mls/hr IVPB Q6HR [facility] Rx#:[id number] Sodium Chloride 0.9% 1, 600 000 ml @ 75 mls/hr IV . [id number] [facility]HANA[facility] Rx#:[id number] Other: Voiding Method Toilet # Voids 5 # Bowel Movements 3 - Exam PHYSICAL EXAMINATION: Patient is lying in the bed comfortably, no acute distress, awake alert and oriented.. HEENT: Normocephalic. Neck is supple. Pupils reactive. Nostrils clear. Oral cavity is moist. Ears reveal no drainage. Neck reveals no JVD, carotid bruits, or thyromegaly. CHEST EXAMINATION: Trachea is central. Symmetrical expansion. Lung morales clear to auscultation and percussion. CARDIAC: Normal S1, S2 with no gallops. No murmurs ABDOMEN: Soft. no tenderness. No guarding no rigidity. Bowel sounds normal. No organomegaly. No abdominal bruits. Extremities: 2+ edema. redness and warm. No clubbing or cyanosis Neurologically awake, alert, oriented x3 with well-coordinated movements. No focal deficits noted Skin: No rash or skin lesions. Psychiatric: Coperative. Nonsuicidal Musculoskeletal: No joint swelling or deformity. Normal range of motion. - Labs CBC & Chem 7: 10/28/19 08:34 10/28/19 08:34 Labs: Abnormal Lab Results - Last 24 Hours (Table) 10/30/19 Range/Units 08:24 PT 20.2 H (9.0-12.0) sec INR 2.1 H (<1.2) Assessment and Plan Assessment: Abdominal pain secondary to ileus currently resolved. Bilateral lower extremity cellulitis Previous history of ostomy and reversal due to bowel obstruction Paroxysmal atrial fibrillation on anticoagulation with Coumadin, Chronic CHF with ejection fraction unknown History of CVA/TIA with memory impairment COPD not in exacerbation History of DVT History of gastric bypass Osteoarthritis Currently everyday smoker Plan: Patient will be continued on IV hydration. Patient did have a bowel movement last night and is currently passing flatus. Continue with symptomatic management for pain. Antibiotics started in the form of Unasyn--Cephazolin. ID and surgery was consulted. Continue to follow closely. Coumadin monitoring. Continue with home medications and further recommendations based on the clinical course. Prognosis guarded with multiple medical problems and comorbid conditions. Time with Patient: Greater than 30
--- NOTE | 2019-10-31 00:30 | PN ---
PROGRESS NOTE DATE OF SERVICE: 10/30/2019 REASON FOR FOLLOWUP: Bilateral lower extremity cellulitis. INTERVAL HISTORY: The patient is currently afebrile. Patient is breathing comfortably. The patient denies having any chest pain or shortness of breath or cough. No nausea, no vomiting. Abdominal pain is currently controlled. Overall pain and discomfort to the leg has decreased. PHYSICAL EXAMINATION: Blood pressure 121/73 with a pulse of 61, temperature 97.7. She is 94% on room air. General description is an elderly female lying in bed in no distress. RESPIRATORY SYSTEM: Unlabored breathing, clear to auscultation anteriorly. HEART: S1, S2. Regular rate and rhythm. ABDOMEN: Soft, no tenderness. Legs are currently wrapped up. No obvious drainage on the dressing. LABS: No new labs done except INR 2.1. DIAGNOSTIC IMPRESSION AND PLAN: Patient with bilateral lower extremity cellulitis with diffuse swelling and redness likely streptococcal disease. Plan is to continue with Unasyn, Liborio wrap. Finish therapy with oral Augmentin. Continue supportive care. MMODL / IJN: [id number] /
[2019-10-31] MEDS: AMPICILLIN-SULBACTAM 3 GM in SODIUM CHLORIDE 0.9% 100 ML IVPB SCH ×4 (05:11→23:01)
[2019-10-31 07:48] VITALS: RESP 16
[2019-10-31] MEDS: SPIRONOLACTONE 25 MG TAB PO SCH (07:55)
[2019-10-31] MEDS: FUROSEMIDE 40 MG TAB PO SCH ×2 (07:56→20:29)
[2019-10-31] MEDS: FOLIC ACID 1 MG TAB PO SCH (07:56)
[2019-10-31] MEDS: POTASSIUM CHLORIDE ER 20 MEQ TAB.ER PO SCH ×3 (07:56→20:29)
[2019-10-31] MEDS: PANTOPRAZOLE 40 MG TABLET PO SCH ×2 (07:56→20:29)
[2019-10-31] MEDS: AMIODARONE 200 MG TAB PO SCH (07:56)
[2019-10-31] MEDS: ATORVASTATIN 10 MG TAB PO SCH (07:56)
[2019-10-31] MEDS: PRAMIPEXOLE 0.5 MG TAB PO SCH ×3 (07:57→20:29)
[2019-10-31] MEDS: OLANZapine 5 MG TAB PO SCH (07:57)
[2019-10-31 08:13] LABS: Prothrombin Time 19.6 sec (9.0-12.0)
--- NOTE | 2019-10-31 09:27 | P.PN ---
Subjective This is a pleasant 64 years old female with multiple medical problems as below presents with signs symptoms of ileus and bilateral leg cellulitis especially on the left leg. She has history of paroxysmal atrial fibrillation on warfarin and her INR is therapeutic, also she has history of DVT. Patient still has abdominal pain especially when she eats, it was 7/10 this morning, periumbilical 1 down to 5/10 with pain medication. She has diarrhea, patient states she has many times bowel movement. No vomiting Her legs are still pink, swollen and tender mother not performed, especially on the left side with some scab in the left lower leg. Surgery team on the case and recommended blood work like TSH, Kupper, parathyroid hormone, iron studies and B12, vitamin A and D which are pending C. diff is negative, TSH is normal at 4.6. INR today is 2.0 Currently patient is on Unasyn and oral Protonix twice daily, also he is on oral Lasix 40 mg twice daily. Because patient is still symptomatic and she is still on IV antibiotics for her legs as well as workup from surgery team, we will keep the patient in the hospital today. PT/OT is been requested and is still pending Objective - Vital Signs Vital signs: Vital Signs Temp 97.5 F L 10/31/19 07:00 Pulse 64 10/31/19 07:00 Resp 16 10/31/19 07:00 BP 115/69 10/31/19 07:00 Pulse Ox 96 10/31/19 07:00 Intake & Output 10/30/19 10/31/19 10/31/19 18:59 06:59 18:59 Intake Total 800 Balance 800 Intake: IV 800 Ampicillin-Sulbactam 3 gm 200 In Sodium Chloride 0.9% 100 ml @ 200 mls/hr IVPB Q6HR NATHANAEL Rx#:[id number] Sodium Chloride 0.9% 1, 600 000 ml @ 75 mls/hr IV . [id number] NATHANAEL Rx#:[id number] Other: Voiding Method Toilet # Voids 2 - Exam GENERAL: The patient is alert and oriented x3, not in any acute distress. Well developed, well nourished. HEENT: Pupils are round and equally reacting to light. EOMI. No scleral icterus. No conjunctival pallor. Normocephalic, atraumatic. No pharyngeal erythema. No thyromegaly. CARDIOVASCULAR: S1 and S2 present. No murmurs, rubs, or gallops. PULMONARY: Chest is clear to auscultation, no wheezing or crackles. -ABDOMEN: Soft, periumbilical tenderness, nondistended, normoactive bowel sounds. No palpable organomegaly. MUSCULOSKELETAL: No joint swelling or deformity. -EXTREMITIES: No cyanosis, clubbing, or pedal edema. Bilateral leg cellulitis with redness, swelling and tenderness, no warmth NEUROLOGICAL: Gross neurological examination did not reveal any focal deficits. SKIN: No rashes. no petechiae. - Labs CBC & Chem 7: 10/28/19 08:34 10/28/19 08:34 Labs: Abnormal Lab Results - Last 24 Hours (Table) 10/31/19 Range/Units 07:08 PT 19.6 H (9.0-12.0) sec INR 2.0 H (<1.2) Assessment and Plan Assessment: Abdominal pain secondary to ileus, improving Bilateral lower extremity cellulitis Previous history of ostomy and reversal due to bowel obstruction Paroxysmal atrial fibrillation on anticoagulation with Coumadin, Chronic CHF with ejection fraction unknown History of CVA/TIA with memory impairment COPD not in exacerbation History of DVT History of gastric bypass Osteoarthritis Currently everyday smoker Plan: This is a pleasant 64% female who presents with ileus and cellulitis. Continue with Protonix and follow-up workup by surgery team including Kupper, PTH, iron, B12, folate, vitamin A and D. Patient still symptomatic when eating, we'll check BMP and electrolytes in view of her diarrhea. Continue with Unasyn for her leg cellulitis. ID and surgery team on the case. Follow-up INR while she is on Coumadin. Labs and medication were reviewed.. Continue same treatment. Continue with symptomatic treatment. Resume home medication. Monitor lytes and vitals. DVT and GI prophylaxis. Further recommendations of the clinical course of the patient DVT prophylaxis: On Coumadin GI prophylaxis: Protonix PT/OT: Pending
[2019-10-31 09:53] LABS: Iron 60 ug/dL (50-170); Total Iron Binding Capacity 400 ug/dL (228-460)
[2019-10-31 10:03] LABS: Ferritin 27.7 ng/mL (10.0-291.0)
[2019-10-31 10:19] LABS: Folate, Serum >24.0 ng/mL
--- NOTE | 2019-10-31 11:13 | P.PN ---
<Lily Raya Kathy - Last Filed: 10/31/19 11:09> Subjective Progress Note Date: 10/31/19 CHIEF COMPLAINT: Small bowel obstruction HISTORY OF PRESENT ILLNESS: Patient examined at the bedside with Dr. Gonzalez. Patient is tolerating diet without nausea or vomiting. However, she complains of pain in her mid-abdomen after eating or drinking anything. She is passing flatus and reports loose stools. Vital signs stable. Afebrile. PHYSICAL EXAM: VITAL SIGNS: Reviewed GENERAL: Well-developed in no acute distress. HEENT: No sclera icterus. Extraocular movements grossly intact. Moist buccal mucosa. Head is atraumatic, normocephalic. Hears conversational speech. No nasal drainage. NECK: Supple without lymphadenopathy. CHEST: Non-labored respirations and equal bilateral excursions. CARDIOVASCULAR: Regular rate with regular rhythm. Palpable 2+ radial pulses. ABDOMEN: Soft. Nondistended. Old well healed midline scar and right lower quadrant scar. MUSCULOSKELETAL: No clubbing or cyanosis. NEUROLOGIC: No focal or lateralizing signs. Cranial nerves II through XII grossly intact. PSYCH: Appropriate affect. Alert and oriented to person, place and time. SKIN: Well perfused. Good skin turgor. ASSESSMENT: 1. Abdominal pain, possible ileus 2. Recent hospitalization secondary to ileus versus small bowel obstruction 3. History of Sawyer-en-Y gastric bypass 4. History of diverticulitis with previous bowel resection with colostomy creation and subsequent reversal PLAN: Continue diet as tolerated Obtain CT scan abdomen pelvis with IV and oral contrast Obtain surgical records from [facility] for bowel resection and colostomy creation and reversal Further recommendations pending Nurse practitioner note has been reviewed by physician. Signing provider agrees with the documented findings, assessment, and plan of care. Objective - Vital Signs Vital signs: Vital Signs Temp 97.5 F L 10/31/19 07:00 Pulse 64 10/31/19 07:00 Resp 16 10/31/19 07:00 BP 115/69 10/31/19 07:00 Pulse Ox 96 10/31/19 07:00 Intake & Output 10/30/19 10/31/19 10/31/19 18:59 06:59 18:59 Intake Total 800 Balance 800 Intake: IV 800 Ampicillin-Sulbactam 3 gm 200 In Sodium Chloride 0.9% 100 ml @ 200 mls/hr IVPB Q6HR NATHANAEL Rx#:[id number] Sodium Chloride 0.9% 1, 600 000 ml @ 75 mls/hr IV . [id number] NATHANAEL Rx#:[id number] Other: Voiding Method Toilet Toilet # Voids 2 - Labs CBC & Chem 7: 10/28/19 08:34 10/28/19 08:34 Labs: Abnormal Lab Results - Last 24 Hours (Table) 10/29/19 10/31/19 Range/Units 23:30 07:08 PT 19.6 H (9.0-12.0) sec INR 2.0 H (<1.2) PTH Intact 84.5 H (14.0-72.0) pg/mL <Lupis Gonzalez - Last Filed: 10/31/19 17:13> Subjective Patient seen and evaluated with above. I personally reviewed her computed tomography scan without findings of bowel obstruction. Features consistent with multiple abdominal surgeries. Abdominal pain likely due to peritoneal adhesions. No evidence of small bowel obstruction on computed tomography scan. Diet as tolerated. Pain management for generalized abdominal pain which is chronic in nature per discussion with patient. Objective - Vital Signs Vital signs: Vital Signs Temp 97.5 F L 10/31/19 07:00 Pulse 64 10/31/19 07:00 Resp 16 10/31/19 07:00 BP 115/69 10/31/19 07:00 Pulse Ox 96 10/31/19 07:00 Intake & Output 10/30/19 10/31/19 10/31/19 18:59 06:59 18:59 Intake Total 800 Balance 800 Intake: IV 800 Ampicillin-Sulbactam 3 gm 200 In Sodium Chloride 0.9% 100 ml @ 200 mls/hr IVPB Q6HR NATHANAEL Rx#:[id number] Sodium Chloride 0.9% 1, 600 000 ml @ 75 mls/hr IV . [id number] NATHANAEL Rx#:[id number] Other: Voiding Method Toilet Toilet # Voids 2 3 # Bowel Movements 1 - Labs CBC & Chem 7: 10/28/19 08:34 10/28/19 08:34 Labs: Abnormal Lab Results - Last 24 Hours (Table) 10/29/19 10/31/19 Range/Units 23:30 07:08 PT 19.6 H (9.0-12.0) sec INR 2.0 H (<1.2) PTH Intact 84.5 H (14.0-72.0) pg/mL Assessment and Plan (1) History of gastric bypass Current Visit: Yes Status: Acute Code(s): Z98.84 - BARIATRIC SURGERY STATUS SNOMED Code(s): 816201067 (2) Abdominal pain Current Visit: Yes Status: Acute Code(s): R10.9 - UNSPECIFIED ABDOMINAL PAIN SNOMED Code(s): 34515518 (3) Bilateral lower leg cellulitis Current Visit: Yes Status: Acute Code(s): L03.116 - CELLULITIS OF LEFT LOWER LIMB; L03.115 - CELLULITIS OF RIGHT LOWER LIMB SNOMED Code(s): 389229051 (4) Ileus Current Visit: Yes Status: Acute Code(s): K56.7 - ILEUS, UNSPECIFIED SNOMED Code(s): 702341476
[2019-10-31] MEDS: IOPAMIDOL CONTRAST (ORAL USE) VIAL PO PRN ×2 (11:36→12:34)
--- NOTE | 2019-10-31 12:11 | PN ---
PROGRESS NOTE DATE OF SERVICE: 10/31/2019 REASON FOR FOLLOWUP: Bilateral lower extremity cellulitis. INTERVAL HISTORY: Patient is currently afebrile. The patient has been breathing comfortably. She has been complaining of abdominal pain slightly more than yesterday. No vomiting though slight nausea. No chest pain, shortness of breath or cough. Denies pain to the lower extremity. PHYSICAL EXAMINATION: Blood pressure 115/69 with a pulse of 64, temperature 97.5. She is 96% on room air. General description is an elderly female up in the bed in no distress. RESPIRATORY SYSTEM: Unlabored breathing, clear to auscultation anteriorly. HEART: S1, S2. Regular rate and rhythm. ABDOMEN: Soft, no tenderness. Legs are currently wrapped up. No obvious drainage on the dressing. LABS: INR 2.0. CBC was not done today. DIAGNOSTIC IMPRESSION AND PLAN: Patient with bilateral lower extremity cellulitis. The patient did have diffuse swelling, redness likely streptococcal disease. Patient is currently covered with Unasyn to continue with oral Augmentin. Continue supportive care. MMODL / IJN: [id number] /
--- NOTE | 2019-10-31 13:32 | CT ---
EXAMINATION TYPE: CT abdomen pelvis w con DATE OF EXAM: 10/31/2019 COMPARISON: 10/27/2019 HISTORY: Abdominal pain. CT DLP: 1418.2 mGycm CONTRAST: CT scan of the abdomen and pelvis is performed with Oral Contrast and with IV Contrast, patient injec luis felipe with 100 mL of Isovue 300. FINDINGS: LUNG BASES-: 1.6 cm pulmonary nodule medial segment right middle lobe. Dedicated CT of the chest is a dvised. Groundglass density right lower lobe image 05/26. No infiltrate. LIVER/GB: The gallbladder is surgically absent. No space occupying hepatic lesion. Biliary tree is of normal caliber. PANCREAS: No inflammation. No distinct mass. SPLEEN: No splenic enlargement. No lesion seen. ADRENALS: No nodule. Mild thickening left adrenal gland. KIDNEYS/BLADDER: No hydronephrosis. No nephrolithiasis. No distinct renal mass. Urinary bladder g rossly unremarkable. BOWEL: Postoperative changes of gastric sleeve without evidence for leak or obstruction. Normal appen veronica. Normal bowel caliber. No inflammation. GENITAL ORGANS: No gross abnormality. LYMPH NODES: No greater than 1cm abdominal or pelvic lymph nodes are appreciated. AORTA: No significant abnormality. OSSEOUS STRUCTURES: Postoperative changes lumbar spine effusion. OTHER: No significant additional abnormality is seen. IMPRESSION: 1. 1.6 cm pulmonary nodule medial segment right middle lobe. Dedicated CT of the chest is advised. Gr oundglass density right lower lobe image 05/26. 2. No acute intra-abdominal process appreciated.
[2019-10-31 13:43] LABS: Hemoglobin A1C 5.6 % (4.0-6.0)
[2019-10-31 14:43] LABS: Vitamin D, 1, 25-Dihydroxy 64 pg/mL (20 - 79)
[2019-10-31] MEDS ORDERED: WARFARIN 3 MG TAB PO ONE (18:00)
[2019-10-31] MEDS: HYDROmorphone 0.5 MG/0.5 ML SYRINGE IVP PRN (18:09)
[2019-10-31] MEDS: MONTELUKAST 10 MG TAB PO SCH (20:29)
[2019-10-31] MEDS: AMITRIPTYLINE HCL 50 MG TAB PO SCH (20:29)
[2019-11-01] MEDS: ACETAMINOPHEN TAB 325 MG TAB PO PRN (04:25)
[2019-11-01] MEDS: AMPICILLIN-SULBACTAM 3 GM in SODIUM CHLORIDE 0.9% 100 ML IVPB SCH (05:13)
[2019-11-01 07:21] VITALS: BP 110/69; PULSE 60; TEMP 97.7
[2019-11-01 07:53] LABS: INR 2.5 (<1.2); Prothrombin Time 24.3 sec (9.0-12.0)
[2019-11-01] MEDS: POTASSIUM CHLORIDE ER 20 MEQ TAB.ER PO SCH (07:54)
[2019-11-01] MEDS: SPIRONOLACTONE 25 MG TAB PO SCH (07:54)
[2019-11-01] MEDS: ATORVASTATIN 10 MG TAB PO SCH (07:55)
[2019-11-01] MEDS: PANTOPRAZOLE 40 MG TABLET PO SCH (07:55)
[2019-11-01] MEDS: FOLIC ACID 1 MG TAB PO SCH (07:55)
[2019-11-01] MEDS: AMIODARONE 200 MG TAB PO SCH (07:55)
[2019-11-01] MEDS: FUROSEMIDE 40 MG TAB PO SCH (07:55)
[2019-11-01 08:25] LABS: Vit B1(Thiamine) 74 ug/L (38-122)
[2019-11-01] MEDS ORDERED: LOPERAMIDE 2 MG CAP PO PRN (10:26)
[2019-11-01] MEDS: OLANZapine 5 MG TAB PO SCH (10:46)
[2019-11-01] MEDS: PRAMIPEXOLE 0.5 MG TAB PO SCH (10:47)
--- NOTE | 2019-11-01 11:03 | P.PN ---
<Lily Raya Kathy - Last Filed: 11/01/19 10:57> Subjective Progress Note Date: 11/01/19 CHIEF COMPLAINT: Small bowel obstruction HISTORY OF PRESENT ILLNESS: Patient examined at the bedside with Dr. Gonzalez. Patient is tolerating diet without nausea or vomiting. She reports her abdominal pain is about the same as yesterday. She continues to have loose stools. Vital signs stable. Afebrile. PHYSICAL EXAM: VITAL SIGNS: Reviewed GENERAL: Well-developed in no acute distress. HEENT: No sclera icterus. Extraocular movements grossly intact. Moist buccal mucosa. Head is atraumatic, normocephalic. Hears conversational speech. No nasal drainage. NECK: Supple without lymphadenopathy. CHEST: Non-labored respirations and equal bilateral excursions. CARDIOVASCULAR: Regular rate with regular rhythm. Palpable 2+ radial pulses. ABDOMEN: Soft. Nondistended. Old well healed midline scar and right lower quadrant scar. MUSCULOSKELETAL: No clubbing or cyanosis. NEUROLOGIC: No focal or lateralizing signs. Cranial nerves II through XII grossly intact. PSYCH: Appropriate affect. Alert and oriented to person, place and time. SKIN: Well perfused. Good skin turgor. ASSESSMENT: 1. Acute on chronic abdominal pain, may be secondary to peritoneal adhesions 2. Recent hospitalization secondary to ileus versus small bowel obstruction 3. History of Sawyer-en-Y gastric bypass 4. History of diverticulitis with previous bowel resection with colostomy creation and subsequent reversal PLAN: Continue diet as tolerated Consult GI for recommendations regarding patients diarrhea No further inpatient workup recommended. Patient may follow up with Dr. Gonzalez in the bariatric center post discharge. She is stable for discharge from a surgical standpoint. Nurse practitioner note has been reviewed by physician. Signing provider agrees with the documented findings, assessment, and plan of care. Objective - Vital Signs Vital signs: Vital Signs Temp 97.7 F 11/01/19 07:00 Pulse 60 11/01/19 07:00 Resp 16 11/01/19 07:00 BP 110/69 11/01/19 07:00 Pulse Ox 98 11/01/19 07:00 Intake & Output 10/31/19 11/01/19 11/01/19 18:59 06:59 18:59 Other: Voiding Method Toilet Toilet # Voids 3 3 # Bowel Movements 1 - Labs CBC & Chem 7: 07/31/20 08:34 10/28/19 08:34 Labs: Abnormal Lab Results - Last 24 Hours (Table) 11/01/19 Range/Units 06:37 PT 24.3 H (9.0-12.0) sec INR 2.5 H (<1.2) <Lupis Gonzalez N - Last Filed: 11/02/19 23:55> Subjective Patient seen and evaluated with above. Results of CT of the abdomen and pelvis reviewed with her without findings of bowel obstruction. I personally reviewed her CT of the abdomen pelvis. Patient does report some improvement of abdominal pain. Much of abdominal pain is pre-existing from multiple prior abdominal surgeries. With history of gastric bypass, recommend outpatient management and follow-up with the bariatric center. Patient otherwise stable for discharge from a surgical standpoint. Objective - Vital Signs Vital signs: Vital Signs Temp 97.7 F 11/01/19 07:00 Pulse 60 11/01/19 07:00 Resp 16 11/01/19 07:00 BP 110/69 11/01/19 07:00 Pulse Ox 98 11/01/19 07:00 - Labs CBC & Chem 7: 10/28/19 08:34 10/28/19 08:34 Assessment and Plan (1) History of gastric bypass Status: Acute Code(s): Z98.84 - BARIATRIC SURGERY STATUS SNOMED Code(s): 818695576 (2) Abdominal pain Status: Acute Code(s): R10.9 - UNSPECIFIED ABDOMINAL PAIN SNOMED Code(s): 94015276 (3) Bilateral lower leg cellulitis Status: Acute Code(s): L03.116 - CELLULITIS OF LEFT LOWER LIMB; L03.115 - CELLULITIS OF RIGHT LOWER LIMB SNOMED Code(s): 643773065 (4) Ileus Status: Acute Code(s): K56.7 - ILEUS, UNSPECIFIED SNOMED Code(s): 669119784
--- NOTE | 2019-11-01 12:58 | PN ---
PROGRESS NOTE DATE OF SERVICE: 11/01/2019. REASON FOR FOLLOWUP: Lower extremity cellulitis. INTERVAL HISTORY: Patient is currently afebrile, patient is breathing comfortably. Patient denies having any chest pain. No shortness of breath, no cough. Abdominal pain has improved. No nausea, no vomiting. No pain in the lower extremities, heart rate, diarrhea. PHYSICAL EXAMINATION: Blood pressure 110/69 with a pulse of 60, temperature is 97.7. She is 98% on room air. General description is an elderly female, up in the bed in no distress. RESPIRATORY SYSTEM: Unlabored breathing, clear to auscultation anteriorly. HEART: S1, S2. Regular rate and rhythm. ABDOMEN: Soft, no tenderness. Legs are currently wrapped up. No obvious drainage on the dressing. LABS: INR is 2.5. DIAGNOSTIC IMPRESSION AND PLAN: Patient has bilateral lower extremity cellulitis. In this patient seemed to have shown clinical progress where cellulitis is concerned. On Unasyn to finish therapy with oral Augmentin. INR needs to be monitored closely while on oral antibiotics. Questions and concerns were answered. MMODL / IJN: [id number] /
--- NOTE | 2019-11-01 15:59 | P.DS ---
Providers Date of admission: 10/27/19 20:43 Expected date of discharge: 11/01/19 Attending physician: Angela Flores Consults: 10/27/19 20:42 Consult Physician Routine Consulting Provider: Lupis Gonzalez Consult Reason/Comments: ileus Do you want consulting provider notified?: Already Contacted 10/28/19 11:07 Consult Physician Routine Consulting Provider: María Lund Consult Reason/Comments: ble cellulitis Do you want consulting provider notified?: Yes 11/01/19 10:11 Consult Physician Routine Consulting Provider: Gem Thompson Consult Reason/Comments: diarrhea Do you want consulting provider notified?: Yes Primary care physician: Almas Martin Hospital Course: Final diagnosis Abdominal pain secondary to ileus, improving Bilateral lower extremity cellulitis Previous history of ostomy and reversal due to bowel obstruction Paroxysmal atrial fibrillation on anticoagulation with Coumadin Chronic CHF with ejection fraction unknown History of CVA/TIA with memory impairment COPD not in exacerbation History of DVT History of gastric bypass Osteoarthritis Currently everyday smoker GI prophylaxis DVT prophylaxis Discharge disposition Patient is being discharged in a stable condition with guarded prognosis to home. Patient will follow-up with Dr. Martin in the outpatient setting upon discharge. Patient also instructed to follow-up with GI along with the bariatric center in the outpatient setting. Patient is to continue with imodium 2 mg 4 times daily and hold if not having any bowel movements. Patient will also continue her short course of oral antibiotics in the form of Augmentin twice daily for the next one week. Total time taken is 35 minutes. History of present illness This is a 64-year-old female who was recently admitted with possible ileus and bilateral lower extremity cellulitis in the left more so than the right and was being closely monitored. Patient continued to have abdominal discomfort and was evaluated by surgery recommending no surgical intervention at this time and conservative treatment. Patient continued to have bowel movements and has not been taking her Imodium. Patient has a chronic history of diarrhea and follows with Dr. Thompson in the outpatient setting. Patient was seen and evaluated by GI recommending continuing with the Imodium and following up with GI in the outpatient setting. Patient's abdominal discomfort has improved would like to go home. Patient was on IV antibiotics in the form of Unasyn and infectious disease was following. Patient will be transitioned oral Augmentin twice daily for the next one week to complete the course. Currently no reports of chest pain, shortness of breath, or palpitations. Patient is afebrile. No reports of nausea or vomiting and patient is tolerating diet. Patient will be discharged home today. On exam vital signs are stable. Temp is 97.7F, pulse is 60, respirations are 16, blood pressure is 110/69, oxygen saturation is 98% on room air. Cardio S1, S2 are muffled. Respiratory system shows diminished breath sounds at the bases with no wheezing or rhonchi noted. Abdomen is soft and nontender. Nervous system shows no focal deficits. Please refer to medication reconciliation sheet for a list of medications. Patient Condition at Discharge: Stable Plan - Discharge Summary Discharge Rx Participant: No New Discharge Prescriptions: New Amoxicillin/Potassium Clav [Augmentin 875-125 Tablet] 1 tab PO Q12HR 7 Days #14 tab Loperamide [Imodium] 2 mg PO QID PRN #60 cap PRN Reason: Diarrhea Continue Amiodarone HCl [Pacerone] 200 mg PO DAILY Amitriptyline HCl [Elavil] 150 mg PO HS Atorvastatin [Lipitor] 10 mg PO DAILY Ergocalciferol [Vitamin D2 (DRISDOL)] 50,000 unit PO TU Folic Acid 1 mg PO DAILY Furosemide [Lasix] 40 mg PO BID Montelukast [Singulair] 10 mg PO HS OLANZapine 7.5 mg PO DAILY Omeprazole [PriLOSEC] 40 mg PO BID Potassium Chloride [Klor-Con 20] 20 meq PO QID Pramipexole [Mirapex] 0.5 mg PO TID Spironolactone 50 mg PO DAILY Warfarin [Coumadin] 2 mg PO DAILY Warfarin Sodium 1 mg PO TUTH oxyCODONE HCL [oxyCODONE HCL (IR)] 10 mg PO BID PRN PRN Reason: Pain Discontinued Loperamide HCl [Loperamide] 4 mg PO BID Discharge Medication List Amiodarone HCl [Pacerone] 200 mg PO DAILY 09/16/19 [History] Amitriptyline HCl [Elavil] 150 mg PO HS 09/16/19 [History] Atorvastatin [Lipitor] 10 mg PO DAILY 09/16/19 [History] Ergocalciferol [Vitamin D2 (DRISDOL)] 50,000 unit PO TU 09/16/19 [History] Folic Acid 1 mg PO DAILY 09/16/19 [History] Furosemide [Lasix] 40 mg PO BID 09/16/19 [History] Montelukast [Singulair] 10 mg PO HS 09/16/19 [History] OLANZapine 7.5 mg PO DAILY 09/16/19 [History] Omeprazole [PriLOSEC] 40 mg PO BID 09/16/19 [History] Potassium Chloride [Klor-Con 20] 20 meq PO QID 09/16/19 [History] Pramipexole [Mirapex] 0.5 mg PO TID 09/16/19 [History] Spironolactone 50 mg PO DAILY 09/16/19 [History] Warfarin Sodium 1 mg PO TUTH 09/16/19 [History] Warfarin [Coumadin] 2 mg PO DAILY 09/16/19 [History] oxyCODONE HCL [oxyCODONE HCL (IR)] 10 mg PO BID PRN 10/27/19 [History] Amoxicillin/Potassium Clav [Augmentin 875-125 Tablet] 1 tab PO Q12HR 7 Days #14 tab 11/01/19 [Rx] Loperamide [Imodium] 2 mg PO QID PRN #60 cap 11/01/19 [Rx] Follow up Appointment(s)/Referral(s): Almas Martin MD [Primary Care Provider] - 1-2 days Gem Thompson MD [STAFF PHYSICIAN] - 12/22/19 10:30 am [place], [place] [NON-STAFF] - 11/16/19 Patient Instructions/Handouts: Cellulitis (DC), Ileus (DC) Activity/Diet/Wound Care/Special Instructions: Activity Limited until follow-up Continue current diet high-protein high-calorie with 6 small meals and sugar- free liquids, consistent carb, no carbonated beverages, no straws Follow-up with the bariatric center as discussed Follow-up with GI in the outpatient setting Continue with Imodium 2 mg 4 times daily and hold if feeling constipated Continue with antibiotics for 7 days until finished Continue with Liborio wraps to bilateral lower extremities and elevate the legs while at rest Follow-up with primary care provider Discharge Disposition: HOME SELF-CARE
[2019-11-01] MEDS ORDERED: WARFARIN 3 MG TAB PO SCH (18:00)
[2019-11-02 02:06] LABS: Selenium 82 mcg/L (63-160)
[2019-11-02] MEDS ORDERED: WARFARIN 2 MG TAB PO SCH (18:00)
== END 2019-11-01 14:35 | disposition home or self-care (01) | DRG 389 ==
LOC: EC 19:52 → 4SSUR 20:43
PROVIDERS: ADMIT Internal Medicine; ATTEND Internal Medicine
DX: K56.7 Ileus, unspecified (principal); L03.115 Cellulitis of right lower limb; L03.116 Cellulitis of left lower limb; K52.9 Noninfective gastroenteritis and colitis, unspecified; F17.210 Nicotine dependence, cigarettes, uncomplicated; G25.81 Restless legs syndrome; G89.29 Other chronic pain; I48.0 Paroxysmal atrial fibrillation; I50.9 Heart failure, unspecified; J44.9 Chronic obstructive pulmonary disease, unspecified; K66.0 Peritoneal adhesions (postprocedural) (postinfection); B95.5 Unspecified streptococcus as the cause of diseases classified elsewhere; Z11.59 Encounter for screening for other viral diseases; M79.7 Fibromyalgia; M19.90 Unspecified osteoarthritis, unspecified site; Z79.01 Long term (current) use of anticoagulants; Z79.899 Other long term (current) drug therapy; Z86.718 Personal history of other venous thrombosis and embolism; I69.911 Memory deficit following unspecified cerebrovascular disease; Z90.49 Acquired absence of other specified parts of digestive tract; Z90.710 Acquired absence of both cervix and uterus; Z90.89 Acquired absence of other organs; Z95.2 Presence of prosthetic heart valve; Z96.641 Presence of right artificial hip joint; Z98.84 Bariatric surgery status; Z88.5 Allergy status to narcotic agent; Z88.8 Allergy status to other drugs, medicaments and biological substances; Z87.01 Personal history of pneumonia (recurrent); F41.9 Anxiety disorder, unspecified; F32.9 Major depressive disorder, single episode, unspecified
CPT/HCPCS: 74019; 74177; 80053; 82525; 82607; 82652; 82728; 82746; 83036; 83540; 83550; 83690; 83735; 83970; 84255; 84425; 84443; 84590; 85025; 85610; 87324; 96361; 96374; 99285

== ENCOUNTER → 2019-11-16 | Outpatient (CLI) | payer MEDICARE, OTHER ==
--- NOTE | 2019-11-16 17:18 | P.HPBAR ---
Bariatric H&P - History & Physicial H&P Date: 11/16/19 History & Physicial: Visit/CC: Patient initial contact: Initial weight: Initial weight in pounds: Height: Initial BMI: Last weight: Current weight: Current weight in pounds: Current BMI: [place] body weight (based on NIH guidelines): Excess body weight loss: The patient is a 64 year-old F who presents for Bariatric Assessment. Highest weight 300 pounds 145 pounds. Now weight gain. Needs dietitian, and records, Zinc and Vitamin A. Follow up for possible scar tissue removal Past Medical History Past Medical History: Atrial Fibrillation, Asthma, Chest Pain / Angina, Heart Failure, COPD, CVA/TIA, Deep Vein Thrombosis (DVT), Fibromyalgia, Memory Impairment, Pneumonia, Renal Disease Additional Past Medical History / Comment(s): past DVT in right upper arm and groin, CVA 2013 caused forgetfulness,RLS, History of Any Multi-Drug Resistant Organisms: MRSA Year Discovered:: 2017 MDRO Source:: right hand Past Surgical History: Back Surgery, Bariatric Surgery, Cardiac Valve Replacement, Section, Cholecystectomy, Hysterectomy, Joint Replacement, Tonsillectomy Additional Past Surgical History / Comment(s): gastric bypass, ostomy reversal. , open heart, 2 artificial heart valves, right hip replacement 2017 Past Anesthesia/Blood Transfusion Reactions: No Reported Reaction Past Psychological History: No Psychological Hx Reported, Anxiety, Depression Smoking Status: Current every day smoker Past Alcohol Use History: None Reported Past Drug Use History: None Reported Additional Drug Use History / Comment(s): pt states she smokes half a pack per day Bariatric Checklist Checklist: Plan: Checklist: EGD: 1. Hiatal hernia: 2. H. Pylori: HgbA1c: Vitamin D: Smoking: Current every day smoker Primary care physician referral: Psychiatry clearance: Cardiology clearance: Sleep study: Diet journal: VTE risk score: VTE risk level: Rehab needs at discharge:
[2019-11-17 11:35] VITALS: BP 139/76; PULSE 71; RESP 16; TEMP 97.9; BMI 37.0
== END | disposition home or self-care (01) ==
LOC: BARWHC3 15:18
PROVIDERS: ATTEND Surgery Plastic and Reconstructive Surgery
DX: R63.5 Abnormal weight gain (principal); F17.200 Nicotine dependence, unspecified, uncomplicated; Z98.84 Bariatric surgery status
CPT/HCPCS: 99211

== ENCOUNTER 2020-01-11 00:39 | Observation (INO) | payer MEDICARE, OTHER ==
[2020-01-11] MEDS ORDERED: PANTOPRAZOLE 40 MG/10 ML VIAL IVP STA (00:47)
[2020-01-11] MEDS ORDERED: SODIUM CHLORIDE 0.9% 1,000 ML IV STA ×2 (00:47)
[2020-01-11] MEDS ORDERED: ONDANSETRON 4 MG/2 ML VIAL IVP STA (00:47)
[2020-01-11] MEDS ORDERED: HYDROmorphone 0.5 MG/0.5 ML SYRINGE IVP STA (00:47)
[2020-01-11] MEDS ORDERED: ONDANSETRON 4 MG/2 ML VIAL IVP PRN (00:49)
--- NOTE | 2020-01-11 00:49 | ED ---
Abdominal Pain HPI - General Chief Complaint: Abdominal Pain Stated Complaint: abd pain Time Seen by Provider: 01/11/20 00:47 Source: patient, EMS, RN notes reviewed, old records reviewed Mode of arrival: EMS - History of Present Illness Initial Comments: This is a 64-year-old female accepted in transfer she is accepted in transfer for intractable abdominal pain with history of same. Patient does follow-up with general surgery Dr. Bullock here at this hospital. Otherwise no travel show sick contacts no abdominal pain currently his pain is well-controlled. No fevers MD Complaint: abdominal pain -: days(s) Location: diffuse Radiation: none Migration to: epigastric, suprapubic Severity: severe Severity scale (1-10): 8 Quality: stabbing, aching Consistency: constant, intermittent Improves With: nothing Worsens With: nothing Associated Symptoms: nausea - Related Data Home Medications Medication Instructions Recorded Confirmed Amiodarone HCl [Pacerone] 200 mg PO DAILY 09/16/19 10/27/19 Amitriptyline HCl [Elavil] 150 mg PO 09/16/19 10/27/19 Atorvastatin [Lipitor] 10 mg PO DAILY 09/16/19 10/27/19 Ergocalciferol [Vitamin D2 50,000 unit PO TU 09/16/19 10/27/19 (DRISDOL)] Folic Acid 1 mg PO DAILY 09/16/19 10/27/19 Furosemide [Lasix] 40 mg PO BID 09/16/19 10/27/19 Montelukast [Singulair] 10 mg PO HS 09/16/19 10/27/19 OLANZapine 7.5 mg PO DAILY 09/16/19 10/27/19 Omeprazole [PriLOSEC] 40 mg PO BID 09/16/19 10/27/19 Potassium Chloride [Klor-Con 20] 20 meq PO QID 09/16/19 10/27/19 Pramipexole [Mirapex] 0.5 mg PO TID 09/16/19 10/27/19 Spironolactone 50 mg PO DAILY 09/16/19 10/27/19 Warfarin Sodium 1 mg PO [facility] 09/16/19 10/31/19 Warfarin [Coumadin] 2 mg PO DAILY 09/16/19 10/27/19 oxyCODONE HCL [oxyCODONE HCL (IR)] 10 mg PO BID PRN 10/27/19 10/27/19 Previous Rx's Medication Instructions Recorded Amoxicillin/Potassium Clav 1 tab PO Q12HR 7 Days #14 tab 11/01/19 [Augmentin 875-125 Tablet] Loperamide [Imodium] 2 mg PO QID PRN #60 cap 11/01/19 Allergies Allergy/AdvReac Type Severity Reaction Status Date / Time trazodone Allergy Rapid Verified 01/11/20 00:47 Heart Rate morphine AdvReac Unknown Verified 01/11/20 00:47 zolpidem [From Ambien] AdvReac Unknown Verified 01/11/20 00:47 Review of Systems ROS Statement: Those systems with pertinent positive or pertinent negative responses have been documented in the HPI. ROS Other: All systems not noted in ROS Statement are negative. 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 , open heart, 2 artificial heart valves, right hip replacement 2017 Past Anesthesia/Blood Transfusion Reactions: No Reported Reaction Past Psychological History: No Psychological Hx Reported, Anxiety, Depression Smoking Status: Current every day smoker Past Alcohol Use History: None Reported Past Drug Use History: None Reported Course Vital Signs 01/11/20 00:42 Temperature 98.1 F Pulse Rate 71 Respiratory 18 Rate Blood Pressure 128/55 O2 Sat by Pulse 96 Oximetry - Reevaluation(s) Reevaluation #1: 01/11/20 00:52 Medical record is reviewed Reevaluation #2: 01/11/20 00:52 Transferring paperwork is reviewed and spoke with transferring physician Reevaluation #3: 01/11/20 00:52 Patient's pain is currently controlled Medical Decision Making - Medical Decision Making 64 female intractable abdominal pain history of same. Patient be admitted for surgery consultation Disposition Clinical Impression: Abdominal pain, Intractable abdominal pain Disposition: ADMITTED IP TO THIS HOSP Condition: Good Is patient prescribed a controlled substance at d/c from ED?: No Referrals: Almas Martin MD [Primary Care Provider] - 1-2 days
[2020-01-11] MEDS: HYDROmorphone 1 MG/ML 1 ML SYRINGE IVP PRN ×2 (02:05→08:11)
[2020-01-11] MEDS: PANTOPRAZOLE 40 MG/10 ML VIAL IVP SCH (08:11)
--- NOTE | 2020-01-11 08:27 | P.GSCN ---
<Tasneem Singh - Last Filed: 01/11/20 08:17> History of Present Illness Consult date: 01/11/20 History of present illness: CHIEF COMPLAINT: Abdominal pain HISTORY OF PRESENT ILLNESS: This is a 64-year-old female with a known past medical history of Sawyer-en-Y gastric bypass, diverticulitis with previous bowel resection with colostomy creation and subsequent reversal, Cholecystectomy, hysterectomy and C-sections. She also has a history of atrial fibrillation anticoagulated with Coumadin, CHF, CVA, DVT, COPD and aortic and mitral valve replacement. Patient has also had prior history of bowel obstructions and ileus. Patient seen and examined with Dr. Gonzalez. Patient is a transfer from another hospital facility. She presented today to the emergency room with abdominal pain centered around her incision sites in the center of her abdomen. She's also been having diarrhea. There has been no blood in her stools. She denies any nausea or vomiting. Denies any fever or chills or sweats. PAST MEDICAL HISTORY: See list. PAST SURGICAL HISTORY: See list. MEDICATIONS: See list. ALLERGIES: See list. SOCIAL HISTORY: No illicit drug use. REVIEW OF SYSTEMS: CONSTITUTIONAL: Denies fever or chills. HEENT: Denies blurred vision, vision changes, or eye pain. Denies hemoptysis ENDOCRINE: Denies heat or cold intolerance. CARDIOVASCULAR: Denies chest pain or pressure. RESPIRATORY: No shortness of breath. GASTROINTESTINAL: Denies abdominal pain. Denies nausea or vomiting. NEURO: Denies history of seizures. PSYCH: No depression or suicidal ideation HEMATOLOGIC: Denies bleeding disorders. LYMPHATIC: The patient denies any lumps and bumps around the neck. GENITOURINARY: Denies any blood in urine or increased urinary frequency. MUSCULOSKELETAL: Denies myalgias. Denies joint swelling. Denies decreased range of motion beyond patients baseline. SKIN: Denies pruitis. Denies rash. PHYSICAL EXAM: VITAL SIGNS: Reviewed GENERAL: Well-developed in no acute distress. HEENT: No sclera icterus. Extraocular movements grossly intact. Moist buccal mucosa. Head is atraumatic, normocephalic. Hears conversational speech. No nasal drainage. NECK: Supple without lymphadenopathy. CHEST: Non-labored respirations and equal bilateral excursions. CARDIOVASCULAR: Regular rate with regular rhythm. Palpable 2+ radial pulses. ABDOMEN: Soft. Nondistended. Tenderness in the center of abdomen along the old incision sites. Old incision site is healed. No evidence of peritonitis MUSCULOSKELETAL: No clubbing or cyanosis. NEUROLOGIC: No focal or lateralizing signs. Cranial nerves II through XII grossly intact. PSYCH: Appropriate affect. Alert and oriented to person, place and time. SKIN: Well perfused. Good skin turgor. LABORATORY DATA: Stool for C. diff pending IMAGING: ASSESSMENT: 1. Abdominal pain with concerns for possible small bowel obstruction secondary to scar tissue 2. Prior history of ileus and small bowel obstruction 3. History of Sawyer-en-Y gastric bypass 4. History of diverticulitis with previous bowel resection with colostomy creation and subsequent reversal PLAN: -Check abdominal x-ray -Start patient on a bariatric full liquid diet -Continue pain medications as needed -Continue antiemetics as needed -Continue IV fluids Thank you for this consultation Physician Final Dressing Cutter note has been reviewed by physician. Signing provider agrees with the documented findings, assessment, and plan of care. Past Medical History Past Medical History: Atrial Fibrillation, Asthma, Chest Pain / Angina, Heart Failure, COPD, CVA/TIA, Deep Vein Thrombosis (DVT), Fibromyalgia, Memory Impairment, Pneumonia, Renal Disease Additional Past Medical History / Comment(s): past DVT in right upper arm and groin, 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 , open heart, 2 artificial heart valves, right hip replacement 2016 Past Anesthesia/Blood Transfusion Reactions: No Reported Reaction Past Psychological History: No Psychological Hx Reported, Anxiety, Depression Smoking Status: Current every day smoker Past Alcohol Use History: None Reported Past Drug Use History: None Reported Additional Drug Use History / Comment(s): pt states she smokes half a pack per day Medications and Allergies Home Medications Medication Instructions Recorded Confirmed Type Amiodarone HCl [Pacerone] 200 mg PO DAILY 09/16/19 01/11/20 History Amitriptyline HCl [Elavil] 150 mg PO HS 09/16/19 01/11/20 History Atorvastatin [Lipitor] 10 mg PO DAILY 09/16/19 01/11/20 History Folic Acid 1 mg PO DAILY 09/16/19 01/11/20 History Furosemide [Lasix] 40 mg PO BID 09/16/19 01/11/20 History Montelukast [Singulair] 10 mg PO DAILY 09/16/19 01/11/20 History OLANZapine 7.5 mg PO HS 09/16/19 01/11/20 History Omeprazole [PriLOSEC] 40 mg PO BID 09/16/19 01/11/20 History Potassium Chloride [Klor-Con 20] 20 meq PO QID 09/16/19 01/11/20 History Pramipexole [Mirapex] 0.5 mg PO TID 09/16/19 01/11/20 History Spironolactone 50 mg PO DAILY 09/16/19 01/11/20 History Warfarin [Coumadin] 2 mg PO SUMOWEFRSA@199909/16/19 01/11/20 History Loperamide [Imodium] 4 mg PO BID PRN 01/11/20 01/11/20 History Warfarin [Coumadin] 3 mg PO TUTH@199901/11/20 01/11/20 History traMADol HCL [Ultram] 50 mg PO Q6HR PRN 01/11/20 01/11/20 History Allergies Allergy/AdvReac Type Severity Reaction Status Date / Time trazodone Allergy Rapid Verified 01/11/20 09:01 Heart Rate morphine AdvReac Unknown Verified 01/11/20 09:01 zolpidem [From Ambien] AdvReac Unknown Verified 01/11/20 09:01 Surgical - Exam Vital Signs Temp Pulse Resp BP Pulse Ox 98.1 F 71 18 128/55 96 01/11/20 00:42 01/11/20 00:42 01/11/20 00:42 01/11/20 00:42 01/11/20 00:42 <Lupis Gonzalez - Last Filed: 01/11/20 21:01> History of Present Illness History of present illness: Patient seen and evaluated. Please see additional documentation below. HISTORY OF PRESENT ILLNESS: The patient is a 64 year old female with pre- existing history of multiple abdominal surgeries including gastric bypass, colectomy, with recurrent episodes of bowel obstruction. She has pre-existing chronic diarrhea. She presents as a transfer from outside hospital for abdominal pain, lower abdomen. She is passing flatus. She is having bowel movements. She reports moderate cramping pain. PAST MEDICAL HISTORY: See list and reviewed PAST SURGICAL HISTORY: See list and reviewed MEDICATIONS: See list and reviewed ALLERGIES: See list and reviewed SOCIAL HISTORY: See list and reviewed FAMILY HISTORY: See list and reviewed REVIEW OF ORGAN SYSTEMS: CONSTITUTIONAL: No fevers or chills. No recent weight loss. EYES: Denies any trouble with vision. No glasses. HEENT: No difficulties with hearing. No nosebleeds. No difficulty swallowing. RESPIRATORY: Past history of pneumonia. Has asthma. Has dysrhythmia. History of open heart valve surgery CARDIOVASCULAR: Has hypertensive heart disease including heart failure. Past history of chest pain. GASTROINTESTINAL: Denies fatty food intolerance. Has change in bowel habits and gas bloat. Has gastroesophageal reflux disease. History of colectomy. GENITOURINARY: Denies any blood in urine or increased urinary frequency. NEUROLOGICAL: Denies any numbness or tingling along the distal extremities. No seizure disorders or headaches. Past history of stroke. MUSCULOSKELETAL: Has back pain, stiffness or joint arthritis. Has fibromyalgia. SKIN: No current skin cancer. No rash. PSYCHIATRIC: Has depression. No suicidal thoughts. History of memory impairment. Has anxiety. ENDOCRINE: Denies current thyroid disorders. Denies any blood sugar glucose intolerance. HEME/LYMPHATIC: On chronic coumadin therapy. Past history of DVTs. History of MRSA. BREAST: Denies current breast lumps, pain or nipple discharge. PHYSICAL EXAM: VITALS: Reviewed CONSTITUTIONAL: Well developed and in no acute distress. EYES: Conjuctivae without sclera icterus. Pupils are equally round and reactive to light. Extraocular movements grossly intact. HEAD, EARS, NOSE, THROAT: Moist buccal mucosa. Head is atraumatic, normocephalic. Hears conversational speech. No nasal drainage. NECK: Supple. No JV distention. RESPIRATORY: Non-labored respirations and equal bilateral excursions. No gross wheezes. CARDIOVASCULAR: Extremities without moderate edema. Palpable 2+ radial pulses. ABDOMEN: Soft. Well-healed midline incision. No peritonitis. Mild tenderness bilaterally abdomen. LYMPH: No neck lymphadenopathy. No axillary lymphadenopathy. MUSCULOSKELETAL: Nail and fingers with good capillary refill. SKIN: Warm and well perfused with good skin turgor. NEUROLOGIC: Cranial nerves II through XII grossly intact. Sensation upper and extremities intact. No focal or lateralizing signs. PSYCH: Appropriate affect. Alert and oriented to person, place and time. Displays appropriate insight. CLINCAL LABS: Reviewed. WBC 7.5. INR elevated at 2.1. Creatinine normal 0.76 IMAGING: Independently reviewed abdominal x-ray will features of minimal gas within the rectum. No free air identified. REPORTS: Abdominal x-ray demonstrates ileus. ASSESSMENT: 1. History of lower abdominal pain 2. History of gastric bypass 3. Ileus PLAN: 1. Recommend IV fluid hydration 2. May start liquid diet. 3. No surgical intervention at this time. 4. Repeat abdominal x-ray pending improvement of symptoms. Thank you for this kind consultation. Surgical - Exam Vital Signs Temp Pulse Resp BP Pulse Ox 98.1 F 71 18 128/55 96 01/11/20 00:42 01/11/20 00:42 01/11/20 00:42 01/11/20 00:42 01/11/20 00:42 Results - Labs 01/11/20 11:48 01/11/20 11:48 Abnormal Lab Results - Last 24 Hours (Table) 01/11/20 01/11/20 01/11/20 Range/Units 11:48 11:48 11:48 RBC 3.67 L (3.80-5.40) m/uL PT 20.1 H (9.0-12.0) sec INR 2.1 H (<1.2) Sodium 134 L (137-145) mmol/L Calcium 8.2 L (8.4-10.2) mg/dL Total Protein 5.3 L (6.3-8.2) g/dL Albumin 3.0 L (3.5-5.0) g/dL Diabetes panel 01/11/20 Range/Units 11:48 Sodium 134 L (137-145) mmol/L Potassium 4.4 (3.5-5.1) mmol/L Chloride 106 (98-107) mmol/L Carbon Dioxide 24 (22-30) mmol/L BUN 17 (7-17) mg/dL Creatinine 0.76 (0.52-1.04) mg/dL Glucose 93 (74-99) mg/dL Calcium 8.2 L (8.4-10.2) mg/dL AST 28 (14-36) U/L ALT 13 (4-34) U/L Alkaline Phosphatase 69 (38-126) U/L Total Protein 5.3 L (6.3-8.2) g/dL Albumin 3.0 L (3.5-5.0) g/dL Calcium panel 01/11/20 Range/Units 11:48 Calcium 8.2 L (8.4-10.2) mg/dL Albumin 3.0 L (3.5-5.0) g/dL Pituitary panel 01/11/20 Range/Units 11:48 Sodium 134 L (137-145) mmol/L Potassium 4.4 (3.5-5.1) mmol/L Chloride 106 (98-107) mmol/L Carbon Dioxide 24 (22-30) mmol/L BUN 17 (7-17) mg/dL Creatinine 0.76 (0.52-1.04) mg/dL Glucose 93 (74-99) mg/dL Calcium 8.2 L (8.4-10.2) mg/dL Adrenal panel 01/11/20 Range/Units 11:48 Sodium 134 L (137-145) mmol/L Potassium 4.4 (3.5-5.1) mmol/L Chloride 106 (98-107) mmol/L Carbon Dioxide 24 (22-30) mmol/L BUN 17 (7-17) mg/dL Creatinine 0.76 (0.52-1.04) mg/dL Glucose 93 (74-99) mg/dL Calcium 8.2 L (8.4-10.2) mg/dL Total Bilirubin 0.7 (0.2-1.3) mg/dL AST 28 (14-36) U/L ALT 13 (4-34) U/L Alkaline Phosphatase 69 (38-126) U/L Total Protein 5.3 L (6.3-8.2) g/dL Albumin 3.0 L (3.5-5.0) g/dL
--- NOTE | 2020-01-11 09:07 | XR ---
EXAMINATION TYPE: XR abdomen 2V DATE OF EXAM: 01/11/2020 8:46 AM CLINICAL HISTORY: Abdominal pain TECHNIQUE: Supine and upright images of the abdomen and pelvis were obtained COMPARISON: 10/28/2019 abdominal radiograph. FINDINGS: Valvular prostheses. Left upper quadrant surgical clips. Lumbar spine fusion hardware. Inco mpletely visualized right hip prosthesis. Diffusely mildly prominent gaseous distended small bowel lo ops with a few air-fluid levels. Nondistended colon. There is no visceromegaly, pneumoperitoneum, or abnormal calcification appreciated. The lung bases are clear. Degenerative changes of the spine. IMPRESSION: Mildly prominent small bowel loops with air-fluid levels. Findings may represent ileus.
[2020-01-11] MEDS ORDERED: traMADol 50 MG TAB PO PRN (09:54)
[2020-01-11] MEDS ORDERED: SODIUM CHLORIDE 0.9% 1,000 ML IV SCH (11:15)
[2020-01-11] MEDS ORDERED: HYDROmorphone 0.5 MG/0.5 ML SYRINGE IVP PRN (11:32)
[2020-01-11] MEDS ORDERED: IPRATROPIUM-ALBUTEROL 3 ML NEB INHALATION PRN (11:34)
[2020-01-11 12:37] LABS: Basophils % (A) 0 %; Eosinophils % (A) 1 %; HCT 34.9 % (34.0-46.0); HGB 11.7 gm/dL (11.4-16.0); Lymphocytes % (A) 13 %; MCH 31.9 pg (25.0-35.0); MCHC 33.5 g/dL (31.0-37.0); MCV 95.2 fL (80.0-100.0); Mean Platelet Volume 8.5; Monocytes # (A) 0.4 k/uL (0-1.0); Monocytes % (A) 6 %; Neutrophils # (A) 5.9 k/uL (1.3-7.7); Neutrophils % (A) 78 %; Platelet Count 209 k/uL (150-450); RBC 3.67 m/uL (3.80-5.40); RDW 12.8 % (11.5-15.5); WBC 7.5 k/uL (3.8-10.6)
[2020-01-11 12:50] LABS: ALT 13 U/L (4-34); AST 28 U/L (14-36); African American GFR (CKD) >90 (>60 ml/min/1.73 sqM); Alkaline Phosphatase 69 U/L (38-126); Anion Gap 4 mmol/L; Blood Urea Nitrogen 17 mg/dL (7-17); Calcium 8.2 mg/dL (8.4-10.2); Carbon Dioxide 24 mmol/L (22-30); Chloride 106 mmol/L (98-107); Glucose 93 mg/dL (74-99); Non-African American GFR(CKD) 83 (>60 ml/min/1.73 sqM); Potassium 4.4 mmol/L (3.5-5.1); Sodium 134 mmol/L (137-145); Total Bilirubin 0.7 mg/dL (0.2-1.3); Total Protein 5.3 g/dL (6.3-8.2)
[2020-01-11 12:56] LABS: INR 2.1 (<1.2); Prothrombin Time 20.1 sec (9.0-12.0)
--- NOTE | 2020-01-11 13:31 | P.HPIM ---
History of Present Illness Patient came in with the diffuse abdominal pain mostly crampy sensation some sharp pain severe yesterday [id number] today 5/10 today. Patient also having nausea vomiting. Patient has multiple surgeries in the past including Sawyer-en-Y gastric day gastric bypass surgery and previous bowel resection colectomy. Patient is found to have ileus partial small bowel obstruction from adhesions. Patient symptoms improved because of which patient was started on clear liquid diet. Patient also has a history of mitral valve replacement for which patient is on Coumadin. Patient appears to have had mechanical mitral valve patient denied any fever chills. Patient does have leukocytosis but no other evidence of infection at this time patient doesn't have any pneumonia or UTI at this time or any other symptoms consistent with that. Review of Systems REVIEW OF SYSTEMS: CONSTITUTIONAL: No fever, no malaise, no fatigue. HEENT: No recent visual problems or hearing problems. Denied any sore throat. CARDIOVASCULAR: No chest pain, orthopnea, PND, no palpitations, no syncope. PULMONARY: As mentioned in HPI GASTROINTESTINAL: No diarrhea, no nausea, no vomiting, no abdominal pain. NEUROLOGICAL: No headaches, no weakness, no numbness. HEMATOLOGICAL: Denies any bleeding or petechiae. GENITOURINARY: Denies any burning micturition, frequency, or urgency. MUSCULOSKELETAL/RHEUMATOLOGICAL: Denies any joint pain, swelling, or any muscle pain. ENDOCRINE: Denies any polyuria or polydipsia. The rest of the 14-point review of systems is negative. Past Medical History Past Medical History: Atrial Fibrillation, Asthma, Chest Pain / Angina, Heart Failure, COPD, CVA/TIA, Deep Vein Thrombosis (DVT), Fibromyalgia, Memory Impairment, Pneumonia, Renal Disease Additional Past Medical History / Comment(s): past DVT in right upper arm and groin, CVA 2012 caused forgetfulness,RLS, History of Any Multi-Drug Resistant Organisms: MRSA Date of last positivie culture/infection: 2016 MDRO Source:: right hand Past Surgical History: Back Surgery, Bariatric Surgery, Cardiac Valve Replacement, Section, Cholecystectomy, Hysterectomy, Joint Replacement, Tonsillectomy Additional Past Surgical History / Comment(s): gastric bypass, ostomy reversal. , open heart, 2 artificial heart valves, right hip replacement 2017 Past Anesthesia/Blood Transfusion Reactions: No Reported Reaction Past Psychological History: No Psychological Hx Reported, Anxiety, Depression Smoking Status: Current every day smoker Past Alcohol Use History: None Reported Past Drug Use History: None Reported Additional Drug Use History / Comment(s): pt states she smokes half a pack per day Medications and Allergies Home Medications Medication Instructions Recorded Confirmed Type Amiodarone HCl [Pacerone] 200 mg PO DAILY 09/16/19 01/11/20 History Amitriptyline HCl [Elavil] 150 mg PO HS 09/16/19 01/11/20 History Atorvastatin [Lipitor] 10 mg PO DAILY 09/16/19 01/11/20 History Folic Acid 1 mg PO DAILY 09/16/19 01/11/20 History Furosemide [Lasix] 40 mg PO BID 09/16/19 01/11/20 History Montelukast [Singulair] 10 mg PO DAILY 09/16/19 01/11/20 History OLANZapine 7.5 mg PO HS 09/16/19 01/11/20 History Omeprazole [PriLOSEC] 40 mg PO BID 09/16/19 01/11/20 History Potassium Chloride [Klor-Con 20] 20 meq PO QID 09/16/19 01/11/20 History Pramipexole [Mirapex] 0.5 mg PO TID 09/16/19 01/11/20 History Spironolactone 50 mg PO DAILY 09/16/19 01/11/20 History Warfarin [Coumadin] 2 mg PO SUMOWEFRSA@199909/16/19 01/11/20 History Loperamide [Imodium] 4 mg PO BID PRN 01/11/20 01/11/20 History Warfarin [Coumadin] 3 mg PO TUTH@199901/11/20 01/11/20 History traMADol HCL [Ultram] 50 mg PO Q6HR PRN 01/11/20 01/11/20 History Allergies Allergy/AdvReac Type Severity Reaction Status Date / Time trazodone Allergy Rapid Verified 01/11/20 09:01 Heart Rate morphine AdvReac Unknown Verified 01/11/20 09:01 zolpidem [From Ambien] AdvReac Unknown Verified 01/11/20 09:01 Physical Exam Vitals: Vital Signs Temp Pulse Pulse Resp BP BP Pulse Ox 01/11/20 07:56 98.1 F 69 16 108/53 95 01/11/20 02:30 98.0 F 69 16 111/69 95 01/11/20 02:09 86 18 123/52 98 01/11/20 00:42 98.1 F 71 18 128/55 96 Intake and Output 01/10/20 01/11/20 01/11/20 22:59 06:59 14:59 Other: Voiding Method Toilet # Bowel Movements 1 Weight 88.451 kg PHYSICAL EXAMINATION: GENERAL: The patient is alert and oriented x3, not in any acute distress. Well developed, well nourished. HEENT: Pupils are round and equally reacting to light. EOMI. No scleral icterus. No conjunctival pallor. Normocephalic, atraumatic. No pharyngeal erythema. No thyromegaly. CARDIOVASCULAR: S1 and S2 present. No murmurs, rubs, or gallops. PULMONARY: Chest is clear to auscultation, no wheezing or crackles. ABDOMEN: Soft, patient has multiple healed abdominal scars bowel sounds are present no significant tenderness. MUSCULOSKELETAL: No joint swelling or deformity. EXTREMITIES: No cyanosis, clubbing, she does have bilateral pedal edema with redness which appears to be secondary to chronic venous stasis NEUROLOGICAL: Gross neurological examination did not reveal any focal deficits. SKIN: No rashes. Results CBC & Chem 7: 01/11/20 11:48 01/11/20 11:48 Labs: Abnormal Lab Results - Last 24 Hours (Table) 01/11/20 01/11/20 01/11/20 Range/Units 11:48 11:48 11:48 RBC 3.67 L (3.80-5.40) m/uL PT 20.1 H (9.0-12.0) sec INR 2.1 H (<1.2) Sodium 134 L (137-145) mmol/L Calcium 8.2 L (8.4-10.2) mg/dL Total Protein 5.3 L (6.3-8.2) g/dL Albumin 3.0 L (3.5-5.0) g/dL Thrombosis Risk Factor Assmnt - Choose All That Apply Each Factor Represents 1 point: Obesity (BMI >25) Other Risk Factors: Yes Each Risk Factor Represents 2 Points: Age 61-74 years Each Risk Factor Represents 3 Points: Family history of DVT/PE Thrombosis Risk Factor Assessment Total Risk Factor Score: 6 Thrombosis Risk Factor Assessment Level: High Risk Assessment and Plan Plan: -Abdominal pain probably secondary to adhesions ileus: Patient was started on liquid diet will advance as tolerated. Patient pain is better controlled at this time. -Hypovolemic hyponatremia patient was given IV fluids patient does have low ejection fraction because of which I'll hold off on IV fluids. Basic metabolic profile again tomorrow, Lasix is being held for now but will probably need to be resumed as soon as possible. -Mitral valve replacement patient is on Coumadin INR is mildly subtherapeutic at 2. and patient target INR is 2.5 5-3.5 patient's INR was around that level yesterday patient will be resumed on her home regimen repeated tomorrow -Atrial fibrillation probably small presently rate controlled continue with anti-correlation as mentioned above History of DVT in the past -COPD: Continue nicotine use: Counseling was provided patient has mild wheezing on exam, patient will be started on inhaled steroids continue with inhalational treatments. -Congestive heart failure EF although is not known patient is presently not in heart failure exacerbation because of her history of heart failure from discontinuing IV fluids as patient is tolerating liquids -Bilateral chronic venous stasis patient does have redness but appeared to be secondary to venous stasis rather than cellulitis -Leukocytosis reactive will repeat the CBC tomorrow. -History of gastric bypass
[2020-01-11] MEDS: HYDROcodone/APAP 5-325MG 1 EACH TAB PO PRN (14:33)
[2020-01-11] MEDS: PRAMIPEXOLE 0.5 MG TAB PO SCH ×2 (17:13→22:31)
[2020-01-11] MEDS ORDERED: WARFARIN 2 MG TAB PO SCH (18:00)
[2020-01-11] MEDS: BUDESONIDE 0.5 MG/2 ML NEBU INHALATION SCH (18:59)
[2020-01-11] MEDS ORDERED: OLANZapine 7.5 MG TAB PO SCH (21:00)
[2020-01-11] MEDS ORDERED: NON FORMULARY DRUG (Omeprazole 40 MG Capsule.Dr) PO SCH (21:00)
[2020-01-11] MEDS ORDERED: AMITRIPTYLINE HCL 50 MG TAB PO SCH (21:00)
[2020-01-12] MEDS: HYDROcodone/APAP 5-325MG 1 EACH TAB PO PRN ×3 (02:17→12:48)
[2020-01-12 02:51] VITALS: RESP 16
[2020-01-12 07:20] VITALS: BP 105/66; TEMP 98
[2020-01-12] MEDS: PANTOPRAZOLE 40 MG/10 ML VIAL IVP SCH (07:26)
[2020-01-12] MEDS: PRAMIPEXOLE 0.5 MG TAB PO SCH (07:26)
[2020-01-12] MEDS: BUDESONIDE 0.5 MG/2 ML NEBU INHALATION SCH (07:44)
[2020-01-12 07:56] VITALS: PULSE 68
--- NOTE | 2020-01-12 08:39 | P.PN ---
<Tasneem Singh - Last Filed: 01/12/20 08:35> Subjective Progress Note Date: 01/12/20 CHIEF COMPLAINT: Abdominal pain HISTORY OF PRESENT ILLNESS: Patient's abdominal pain has improved. She is tolerating diet. Diet will be advanced to a soft consistent carbohydrate diet. She has been having bowel movements. Denies any nausea or vomiting. She is afebrile. PHYSICAL EXAM: VITAL SIGNS: Reviewed GENERAL: Well-developed in no acute distress. HEENT: No sclera icterus. Extraocular movements grossly intact. Moist buccal mucosa. Head is atraumatic, normocephalic. Hears conversational speech. No nasal drainage. NECK: Supple without lymphadenopathy. CHEST: Non-labored respirations and equal bilateral excursions. CARDIOVASCULAR: Regular rate with regular rhythm. Palpable 2+ radial pulses. ABDOMEN: Soft. Nondistended. Nontender. MUSCULOSKELETAL: No clubbing or cyanosis. NEUROLOGIC: No focal or lateralizing signs. Cranial nerves II through XII grossly intact. PSYCH: Appropriate affect. Alert and oriented to person, place and time. SKIN: Well perfused. Good skin turgor. ASSESSMENT: 1. Ileus 2. Lower abdominal pain 3. History of gastric bypass PLAN: -Advance diet to a soft carbohydrate consistent diet -No surgical intervention at this time -Patient can be discharged home today if she is tolerating her diet Physician Tie Puller note has been reviewed by physician. Signing provider agrees with the documented findings, assessment, and plan of care. Objective - Vital Signs Vital signs: Vital Signs Temp 98 F 01/12/20 07:19 Pulse 68 01/12/20 07:56 Resp 16 01/12/20 07:19 BP 105/66 01/12/20 07:19 Pulse Ox 96 01/12/20 07:19 Intake & Output 01/11/20 01/12/20 01/12/20 18:59 06:59 18:59 Intake Total 480 Balance 480 Intake: Oral 480 Other: Voiding Method Toilet Toilet Toilet # Voids 2 1 # Bowel Movements 1 - Labs CBC & Chem 7: 01/11/20 11:48 01/11/20 11:48 Labs: Abnormal Lab Results - Last 24 Hours (Table) 01/11/20 01/11/20 01/11/20 Range/Units 11:48 11:48 11:48 RBC 3.67 L (3.80-5.40) m/uL PT 20.1 H (9.0-12.0) sec INR 2.1 H (<1.2) Sodium 134 L (137-145) mmol/L Calcium 8.2 L (8.4-10.2) mg/dL Total Protein 5.3 L (6.3-8.2) g/dL Albumin 3.0 L (3.5-5.0) g/dL <Lupis Gonzalez - Last Filed: 01/12/20 21:54> Subjective Patient seen and evaluated with both. Please see additional documentation below. HISTORY OF PRESENT ILLNESS: The patient is a 64 year old female with pre- existing history of multiple abdominal surgeries including gastric bypass, colectomy, with recurrent episodes of bowel obstruction. She presented with ileus. No reports of nausea and vomiting. She is tolerating diet. She reports hunger for normal food. REVIEW OF ORGAN SYSTEMS: No fevers or chills. No nausea or vomiting. No chest pain. PHYSICAL EXAM: VITALS: Reviewed CONSTITUTIONAL: Well developed and in no acute distress. EYES: Conjuctivae without sclera icterus. Pupils are equally round and reactive to light. Extraocular movements grossly intact. Wears glasses. HEAD, EARS, NOSE, THROAT: Moist buccal mucosa. Head is atraumatic, normocephalic. Hears conversational speech. No nasal drainage. NECK: Supple. No JV distention. RESPIRATORY: Non-labored respirations and equal bilateral excursions. No gross wheezes. CARDIOVASCULAR: Palpable 2+ radial pulses. ABDOMEN: Soft. Well-healed midline incision. No peritonitis. MUSCULOSKELETAL: Nail and fingers with good capillary refill. SKIN: Warm and well perfused with good skin turgor. NEUROLOGIC: Cranial nerves II through XII grossly intact. Sensation upper and extremities intact. No focal or lateralizing signs. PSYCH: Appropriate affect. Alert and oriented to person, place and time. Displays appropriate insight. CLINCAL LABS: Reviewed. WBC 7.5, now 6.2. INR elevated at 2.1, now 2.5. ASSESSMENT: 1. History of lower abdominal pain 2. History of gastric bypass 3. Ileus PLAN: 1. Overall, patient's abdominal pain has improved. 2. Recommend follow-up in the bariatric center upon discharge. 3. Dietary restriction including low-carb diet reviewed for history of gastric bypass. Objective - Vital Signs Vital signs: Vital Signs Temp 98 F 01/12/20 07:19 Pulse 68 01/12/20 07:56 Resp 16 01/12/20 07:19 BP 105/66 01/12/20 07:19 Pulse Ox 96 01/12/20 07:19 Intake & Output 01/12/20 01/12/20 01/13/20 06:59 18:59 06:59 Intake Total 480 Balance 480 Intake: Oral 480 Other: Voiding Method Toilet Toilet # Voids 1 1 # Bowel Movements 1 - Labs CBC & Chem 7: 01/12/20 08:38 01/12/20 08:38 Labs: Abnormal Lab Results - Last 24 Hours (Table) 01/12/20 01/12/20 01/12/20 Range/Units 08:38 08:38 08:38 RBC 3.62 L (3.80-5.40) m/uL Hgb 11.2 L (11.4-16.0) gm/dL PT 24.1 H (9.0-12.0) sec INR 2.5 H (<1.2) Sodium 133 L (137-145) mmol/L Glucose 138 H (74-99) mg/dL Assessment and Plan (1) Abdominal pain Status: Acute Code(s): R10.9 - UNSPECIFIED ABDOMINAL PAIN SNOMED Code(s): 19695129 (2) History of gastric bypass Status: Acute Code(s): Z98.84 - BARIATRIC SURGERY STATUS SNOMED Code(s): 285731946 (3) Ileus Status: Acute Code(s): K56.7 - ILEUS, UNSPECIFIED SNOMED Code(s): 523739175
[2020-01-12] MEDS ORDERED: ATORVASTATIN 10 MG TAB PO SCH (09:00)
[2020-01-12] MEDS ORDERED: MONTELUKAST 10 MG TAB PO SCH (09:00)
[2020-01-12] MEDS ORDERED: AMIODARONE 200 MG TAB PO SCH (09:00)
[2020-01-12] MEDS ORDERED: FOLIC ACID 1 MG TAB PO SCH (09:00)
[2020-01-12 09:36] LABS: INR 2.5 (<1.2); Prothrombin Time 24.1 sec (9.0-12.0)
[2020-01-12 09:50] LABS: African American GFR (CKD) >90 (>60 ml/min/1.73 sqM); Anion Gap 6 mmol/L; Blood Urea Nitrogen 8 mg/dL (7-17); Calcium 8.7 mg/dL (8.4-10.2); Carbon Dioxide 24 mmol/L (22-30); Chloride 103 mmol/L (98-107); Glucose 138 mg/dL (74-99); Non-African American GFR(CKD) 83 (>60 ml/min/1.73 sqM); Sodium 133 mmol/L (137-145)
[2020-01-12 09:54] LABS: HCT 35.5 % (34.0-46.0); HGB 11.2 gm/dL (11.4-16.0); Hypochromasia Slight; MCH 31.1 pg (25.0-35.0); MCHC 31.6 g/dL (31.0-37.0); MCV 98.3 fL (80.0-100.0); Mean Platelet Volume 8.8; Platelet Count 194 k/uL (150-450); RBC 3.62 m/uL (3.80-5.40); RDW 13.3 % (11.5-15.5); WBC 6.2 k/uL (3.8-10.6)
[2020-01-12] MEDS ORDERED: FUROSEMIDE 10 MG/ML 4 ML VIAL IV STA (09:55)
--- NOTE | 2020-01-12 11:58 | P.DS ---
Providers Date of admission: 01/11/20 00:50 Attending physician: Aline Onofre Consults: 01/11/20 00:49 Consult Physician Routine Consulting Provider: Lupis Gonzalez Consult Reason/Comments: known Do you want consulting provider notified?: Yes Primary care physician: Almas Martin Hospital Course: Patient came in with the abdominal pain and was treated for ileus secondary to adhesions. Patient is able to tolerate diet well today. Patient presently appears to have some hypervolemic hyponatremia patient will give a given a dose of Lasix. Patient's diuretics were held yesterday as she was receiving IV fluids. Patient doesn't appear to have any crackles or pulmonary edema at this time although does have pedal edema. Patient does have chronic diastolic dysfunction does take Lasix and Aldactone at home which will be resumed we'll repeat basic metabolic profile in about 2-3 days consisting that had hyponatremia and patient was given Lasix IV today. PHYSICAL EXAMINATION: GENERAL: The patient is alert and oriented x3, not in any acute distress. Well developed, well nourished. HEENT: Pupils are round and equally reacting to light. EOMI. No scleral icterus. No conjunctival pallor. Normocephalic, atraumatic. No pharyngeal erythema. No thyromegaly. CARDIOVASCULAR: S1 and S2 present. No murmurs, rubs, or gallops. PULMONARY: Chest is clear to auscultation, no wheezing or crackles. ABDOMEN: Soft, nontender, nondistended, normoactive bowel sounds. No palpable organomegaly. MUSCULOSKELETAL: No joint swelling or deformity. EXTREMITIES: No cyanosis, clubbing, or pedal edema. NEUROLOGICAL: Gross neurological examination did not reveal any focal deficits. SKIN: No rashes. Assessment and Plan Plan: -Abdominal pain probably secondary to adhesions ileus: Resolved at -Hyponatremia most probably hypervolemic hyponatremia presently. -Mitral valve replacement patient is on Coumadin INR is mildly subtherapeutic at 2. and patient target INR is 2.5 5-3.5 patient can resume her home doses. -Atrial fibrillation probably small presently rate controlled continue with anti-violation as mentioned above History of DVT in the past -COPD: Continue nicotine use: I'll acute exacerbation improved now -Congestive heart failure chronic diastolic dysfunction presently not in acute exacerbation -Bilateral chronic venous stasis patient does have redness but appeared to be secondary to venous stasis rather than cellulitis -Leukocytosis reactive will repeat the CBC tomorrow. -History of gastric bypass Patient Condition at Discharge: Good Plan - Discharge Summary New Discharge Prescriptions: Continue Amiodarone HCl [Pacerone] 200 mg PO DAILY Amitriptyline HCl [Elavil] 150 mg PO HS Atorvastatin [Lipitor] 10 mg PO DAILY Folic Acid 1 mg PO DAILY Furosemide [Lasix] 40 mg PO BID Montelukast [Singulair] 10 mg PO DAILY OLANZapine 7.5 mg PO HS Omeprazole [PriLOSEC] 40 mg PO BID Potassium Chloride [Klor-Con 20] 20 meq PO QID Pramipexole [Mirapex] 0.5 mg PO TID Spironolactone 50 mg PO DAILY Warfarin [Coumadin] 2 mg PO SUMOWE@1999 traMADol HCL [Ultram] 50 mg PO Q6HR PRN PRN Reason: Pain Loperamide [Imodium] 4 mg PO BID PRN PRN Reason: Diarrhea Warfarin [Coumadin] 3 mg PO TUTH@1999 Discharge Medication List Amiodarone HCl [Pacerone] 200 mg PO DAILY 09/16/19 [History] Amitriptyline HCl [Elavil] 150 mg PO HS 09/16/19 [History] Atorvastatin [Lipitor] 10 mg PO DAILY 09/16/19 [History] Folic Acid 1 mg PO DAILY 09/16/19 [History] Furosemide [Lasix] 40 mg PO BID 09/16/19 [History] Montelukast [Singulair] 10 mg PO DAILY 09/16/19 [History] OLANZapine 7.5 mg PO HS 09/16/19 [History] Omeprazole [PriLOSEC] 40 mg PO BID 09/16/19 [History] Potassium Chloride [Klor-Con 20] 20 meq PO QID 09/16/19 [History] Pramipexole [Mirapex] 0.5 mg PO TID 09/16/19 [History] Spironolactone 50 mg PO DAILY 09/16/19 [History] Warfarin [Coumadin] 2 mg PO SUMOWEFRSA@199909/16/19 [History] Loperamide [Imodium] 4 mg PO BID PRN 01/11/20 [History] Warfarin [Coumadin] 3 mg PO TUTH@199901/11/20 [History] traMADol HCL [Ultram] 50 mg PO Q6HR PRN 01/11/20 [History] Follow up Appointment(s)/Referral(s): Almas Martin MD [Primary Care Provider] [facility] [place] [facility] - 02/02/20 Ambulatory/Diagnostic Orders: Basic Metabolic Panel [LAB.AMB] Time Frame: 3 Days, Location: None Selected
[2020-01-12] MEDS ORDERED: WARFARIN 3 MG TAB PO SCH (18:00)
[2020-01-13] MEDS ORDERED: PANTOPRAZOLE 40 MG TABLET PO SCH (09:00)
== END 2020-01-12 14:30 | disposition home or self-care (01) ==
LOC: EC 00:39 → 1SOBS 00:50
PROVIDERS: ADMIT Hospitalist; ATTEND Hospitalist
DX: R10.9 Unspecified abdominal pain (principal); E87.1 Hypo-osmolality and hyponatremia; K56.51 Intestinal adhesions [bands], with partial obstruction; K56.7 Ileus, unspecified; F17.210 Nicotine dependence, cigarettes, uncomplicated; G25.81 Restless legs syndrome; I48.91 Unspecified atrial fibrillation; I50.32 Chronic diastolic (congestive) heart failure; I87.8 Other specified disorders of veins; J44.1 Chronic obstructive pulmonary disease with (acute) exacerbation; K52.9 Noninfective gastroenteritis and colitis, unspecified; M79.7 Fibromyalgia; Z79.01 Long term (current) use of anticoagulants; Z79.899 Other long term (current) drug therapy; Z86.718 Personal history of other venous thrombosis and embolism; Z86.73 Personal history of transient ischemic attack (TIA), and cerebral infarction without residual deficits; Z90.49 Acquired absence of other specified parts of digestive tract; Z90.710 Acquired absence of both cervix and uterus; Z93.3 Colostomy status; Z95.2 Presence of prosthetic heart valve; Z96.641 Presence of right artificial hip joint; Z98.84 Bariatric surgery status
CPT/HCPCS: 96361 ×2; 96375 ×2; 96376 ×2; 96374; 99285; 94640; 80053; 80048; 85025; 85027; 85610 ×2; 74019; G0378 ×2; J1940; J1170 ×2; C9113 ×2

== ENCOUNTER → 2020-02-01 | Outpatient (CLI) | payer MEDICARE, OTHER ==
[2020-02-01 13:36] VITALS: BP 169/72; PULSE 73; RESP 16; TEMP 98.4; BMI 39.6
--- NOTE | 2020-02-01 13:39 | P.PN ---
Subjective Progress Note Date: 02/01/20 DATE OF SERVICE: 02/01/2020 CHIEF COMPLAINT: History of gastric bypass. HISTORY OF PRESENT ILLNESS: Tala Martinez is a 64-year-old female with history of gastric bypass. She has had multiple abdominal surgeries with peritoneal adhesions and small bowel obstruction. She was recently hospitalized for ileus and bowel obstruction. She is still having periumbilical pain from prior open surgery. She is off oxycodone and she is on tramadol. She has stomach and back pain. She presents for follow up on her abdominal pain. At height of 5 feet 1 inches, her ideal body weight is 131 pounds. Her highest weight was 300 pounds, BMI 56.8. Her lowest weight was 145 pounds. She comes in 210 pounds from 196 pounds, 3 months ago. She has gained 14 pounds from 3 months ago. Her body mass index is 39.7. Her lifetime weight loss is 90 pounds. Her percent excess weight loss is 53 % lifetime. She is 79 pounds overweight. PAST MEDICAL HISTORY: 1. Morbid obesity due to excess calories 2. Body mass index of 56.8, initial 3. Atrial fibrillation 4. Depressive disorder 5. Hyperlipidemia 6. Congestive heart failure 7. Chronic obstructive pulmonary disease 8. Gastroesophageal reflux disease 9. Irritable bowel syndrome 10. Fibromyalgia 11. Diverticulitis 12. Angina 13. Transient ischemic attack 14. Deep venous thrombosis 15. Memory impairment 16. Pneumonia 17. Chronic renal insufficiency 18. Restless leg syndrome 19. History MRSA infection 20. Chronic back pain PAST SURGICAL HISTORY: 1. Gastric bypass 2. Colon resection 3. Colostomy with reversal 4. Back surgery 5. Two artificial valve replacement 6. section 7. Cholecystectomy 8. Hysterectomy 9. Right hip replacement 10. Tonsillectomy HOME MEDICATIONS: Home Medications Medication Instructions Recorded Confirmed Amiodarone HCl [Pacerone] 200 mg PO DAILY 09/16/19 02/01/20 Amitriptyline HCl [Elavil] 150 mg PO HS 09/16/19 02/01/20 Atorvastatin [Lipitor] 10 mg PO DAILY 09/16/19 02/01/20 Folic Acid 1 mg PO DAILY 09/16/19 02/01/20 Furosemide [Lasix] 40 mg PO BID 09/16/19 02/01/20 Montelukast [Singulair] 10 mg PO DAILY 09/16/19 02/01/20 OLANZapine 7.5 mg PO HS 09/16/19 02/01/20 Omeprazole [PriLOSEC] 40 mg PO BID 09/16/19 02/01/20 Potassium Chloride [Klor-Con 20] 20 meq PO QID 09/16/19 02/01/20 Pramipexole [Mirapex] 0.5 mg PO TID 09/16/19 02/01/20 Spironolactone 50 mg PO DAILY 09/16/19 02/01/20 Warfarin [Coumadin] 2 mg PO SUMOWEFRSA@199909/16/19 02/01/20 Loperamide [Imodium] 4 mg PO BID PRN 01/11/20 02/01/20 Warfarin [Coumadin] 3 mg PO TUTH@199901/11/20 02/01/20 traMADol HCL [Ultram] 50 mg PO Q6HR PRN 01/11/20 02/01/20 ALLERGIES: Allergies Allergy/AdvReac Type Severity Reaction Status Date / Time trazodone Allergy Rapid Verified 02/01/20 14:47 Heart Rate morphine AdvReac Unknown Verified 02/01/20 14:47 zolpidem [From Ambien] AdvReac Unknown Verified 02/01/20 14:47 SOCIAL HISTORY: Tobacco use. FAMILY HISTORY: No family history of ulcerative colitis disease or Crohn's disease. Family history of morbid obesity. No lupus in the family. No reports of stomach or esophageal cancer. REVIEW OF ORGAN SYSTEMS: CONSTITUTIONAL: HEENT: Denies any active troubles with vision or hearing. Wears glasses. Has occasional troubles with swallowing. ENDOCRINE: Denies diabetes. No hypothyroidism. CARDIOVASCULAR: Past reports of palpitations or heart attacks or chest pain. Has valvular replacement RESPIRATORY: Has asthma. Has COPD. GASTROINTESTINAL: Denies any bright red blood per rectum. Has chronic diarrhea. History of bowel obstruction and resection. MUSCULOSKELETAL: Has lower back pain and joint pain. Has osteoarthritis of the knees. NEURO: No headaches. No seizure disorders. PSYCH: Has depression. No suicidal ideation. RHEUMATOLOGIC: No lupus. No rheumatoid arthritis. HEMATOLOGIC: Denies any abnormal bleeding or bruising. Personal history of DVTs. On anticoagulant. SKIN: No rash. No skin cancer. PHYSICAL EXAM: VITAL SIGNS: Height 5 foot 1 inches, weight 210 pounds. BMI 39.7 Vital Signs Temp 98.4 F 02/01/20 13:34 Pulse 73 02/01/20 13:34 Resp 16 02/01/20 13:34 BP 169/72 02/01/20 13:34 Pulse Ox GENERAL: Well-developed in no acute distress. HEENT: No scleral icterus. Extraocular movements grossly intact. Hears conversational speech. No nasal drainage. NECK: Supple without lymphadenopathy. CHEST: Nonlabored respirations with equal bilateral excursions. CARDIOVASCULAR: Regular rate and regular rhythm. Distal 2+ pulses. ABDOMEN: Obese, soft. No peritonitis. Well healed midline incision. MUSCULOSKELETAL: No clubbing, cyanosis. NEURO: No focal or lateralizing signs. Cranial nerves 2 through 12 grossly within normal limits. PSYCH: Appropriate affect. Alert and oriented to person, place and time. SKIN: Good skin turgor. Well perfused. ASSESSMENT: 1. Morbid obesity due to excess calories 2. Body mass index of 56.8, initial to 39.7 3. Atrial fibrillation 4. Depressive disorder 5. Hyperlipidemia 6. Congestive heart failure 7. Chronic obstructive pulmonary disease 8. Gastroesophageal reflux disease 9. Irritable bowel syndrome 10. Fibromyalgia 11. Diverticulitis 12. Angina 13. Transient ischemic attack 14. Deep venous thrombosis 15. Memory impairment 16. Pneumonia 17. Chronic renal insufficiency 18. Restless leg syndrome 19. History MRSA infection 20. Chronic back pain 21. Recurrent small bowel obstruction PLAN: 1. She is having periumbilical pain with moderate peritoneal adhesions. Recommend lysis of adhesions. 2. Will need medical records request from [facility]. 3. Dietary consultation for weight loss 4. Will need cardiology consultation and clearance for pre-existing heart disease. 5. She is elevated risk for complications.
== END | disposition home or self-care (01) ==
LOC: BARWHC3 12:57
PROVIDERS: ATTEND Surgery Plastic and Reconstructive Surgery
DX: E66.01 Morbid (severe) obesity due to excess calories (principal); I48.91 Unspecified atrial fibrillation; F32.9 Major depressive disorder, single episode, unspecified; E78.5 Hyperlipidemia, unspecified; J44.9 Chronic obstructive pulmonary disease, unspecified; K21.9 Gastro-esophageal reflux disease without esophagitis; M79.7 Fibromyalgia; K58.9 Irritable bowel syndrome, unspecified; K57.92 Diverticulitis of intestine, part unspecified, without perforation or abscess without bleeding; I20.9 Angina pectoris, unspecified; G45.9 Transient cerebral ischemic attack, unspecified; N18.9 Chronic kidney disease, unspecified; Z86.718 Personal history of other venous thrombosis and embolism; G25.81 Restless legs syndrome; G89.29 Other chronic pain; M54.9 Dorsalgia, unspecified; K56.609 Unspecified intestinal obstruction, unspecified as to partial versus complete obstruction; Z86.14 Personal history of Methicillin resistant Staphylococcus aureus infection; Z68.39 Body mass index [BMI] 39.0-39.9, adult; I50.9 Heart failure, unspecified
CPT/HCPCS: 99211

== ENCOUNTER 2020-12-13 19:33 | Observation (INO) | payer MEDICARE, OTHER ==
--- NOTE | 2020-12-13 19:56 | ED ---
General Adult HPI - General Chief complaint: Abdominal Pain Stated complaint: Flank pain Time Seen by Provider: 12/13/20 19:38 Source: patient, EMS Mode of arrival: EMS Limitations: no limitations - History of Present Illness Initial comments: Dictation was produced using onefinestay dictation software. please excuse any grammatical, word or spelling errors. Chief Complaint: 65-year-old female was sent to our emergency Department from [place] for right lower quadrant abdominal pain. History of Present Illness: 65-year-old female sent to emergency department for right lower quadrant abdominal pain. Patient interviewed at bedside states that she went to the emergency department after speaking with mid-level provider about her symptoms. She is told to go to the emergency department. Patient states that for the last 1-2 days she's been having right lower quadrant abdominal pain. Patient denies any urinary symptoms. She was worked up at [place]' found to have negative workup. She did have a computed tomography scan that was not suggestive of acute appendicitis however appendix was not visualized. Urine sample was clean. Laboratory evaluation was within acceptable limits. Patient had mild leukocytosis of 12.8. Denies any vaginal bleeding or vaginal discharge. No fevers. No nausea vomiting. States that the pain is in her right lower quadrant radiates to the right flank. Patient has history of ostomy with reversal. Patient takes Coumadin. Patient had supratherapeutic INR of 6.11. This concerned the patient was experiencing urinary retention. The ROS documented in this emergency department record has been reviewed and confirmed by me. Those systems with pertinent positive or negative responses have been documented in the HPI. All other systems are other negative and/or noncontributory. PHYSICAL EXAM: General Impression: Alert and oriented x3, not in acute distress HEENT: Normocephalic atraumatic, extra-ocular movements intact, pupils equal and reactive to light bilaterally, mucous membranes moist. Cardiovascular: Heart regular rate and rhythm Chest: Able to complete full sentences, no retractions, no tachypnea Abdomen: abdomen soft, tenderness to palpation in the right lower quadrant. Pain at McBurney's, no rebound tenderness, no pain in the right lower quadrant with palpation of the left quadrant. Musculoskeletal: Pulses present and equal in all extremities, no peripheral edema Motor: no focal deficits noted Neurological: CN II-XII grossly intact, no focal motor or sensory deficits noted Skin: Intact with no visualized rashes Psych: Normal affect and mood ED course: 65-year-old female presents to the emergency department from [place] for right lower quadrant abdominal pain, cannot rule out acute appendicitis, supratherapeutic INR of 6.11. Vital signs upon arrival are within acceptable limits. Patient's well-appearing at bedside. Patient does have pain in the right lower quadrant. Given patient's clinical presentation I doubt acute appendicitis. She is well-appearing at bedside without any other GI symptoms. She had a computed tomography scan performed [place] which was unremarkable for any acute processes. Discussed the patient that her workup is essentially negative and that she is stable for discharge if she feels well. She states that her pain is too severe to go home. Case discussed with on-call general surgeon Dr. Gardner was went except patient's care and observation. Patient be monitored overnight. - Related Data Home Medications Medication Instructions Recorded Confirmed Amiodarone HCl [Pacerone] 200 mg PO HS 09/16/19 12/13/20 Amitriptyline HCl [Elavil] 150 mg PO HS 09/16/19 12/13/20 Atorvastatin [Lipitor] 10 mg PO DAILY 09/16/19 12/13/20 Folic Acid 1 mg PO DAILY 09/16/19 12/13/20 Furosemide [Lasix] 80 mg PO DAILY 09/16/19 12/13/20 Montelukast [Singulair] 10 mg PO HS 09/16/19 12/13/20 Omeprazole [PriLOSEC] 40 mg PO DAILY 09/16/19 12/13/20 Potassium Chloride [Klor-Con 20] 20 meq PO QID 09/16/19 12/13/20 Spironolactone 50 mg PO DAILY 09/16/19 12/13/20 Warfarin [Coumadin] 2 mg PO HS@2100 09/16/19 12/13/20 Loperamide [Imodium] 4 mg PO TID 01/11/20 12/13/20 traMADol HCL [Ultram] 50 mg PO Q6H PRN 01/11/20 12/13/20 Multivitamins, Thera [Multivitamin 1 tab PO DAILY 12/13/20 12/13/20 (formulary)] OLANZapine 3.75 mg PO DAILY 12/13/20 12/13/20 Pramipexole Di-HCl [Mirapex] 0.75 mg PO DAILY 12/13/20 12/13/20 Pramipexole Di-HCl [Mirapex] 1.5 mg PO HS 12/13/20 12/13/20 Warfarin [Coumadin] 1 mg PO TERESA@2100 12/13/20 12/13/20 Allergies Allergy/AdvReac Type Severity Reaction Status Date / Time trazodone Allergy Rapid Verified 12/13/20 21:05 Heart Rate morphine AdvReac RLS Verified 12/13/20 21:05 zolpidem [From Ambien] AdvReac Unknown Verified 12/13/20 21:05 Review of Systems ROS Statement: Those systems with pertinent positive or pertinent negative responses have been documented in the HPI. ROS Other: All systems not noted in ROS Statement are negative. 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 , open heart, 2 artificial heart valves, right hip replacement 2017 Past Anesthesia/Blood Transfusion Reactions: No Reported Reaction Past Psychological History: No Psychological Hx Reported, Anxiety, Depression Smoking Status: Current every day smoker Past Alcohol Use History: None Reported Past Drug Use History: None Reported Additional Drug Use History / Comment(s): pt states she smokes half a pack per day General Exam Limitations: no limitations Course Vital Signs 12/13/20 19:35 Temperature 98.3 F Pulse Rate 55 L Respiratory 18 Rate Blood Pressure 128/58 O2 Sat by Pulse 100 Oximetry Disposition Clinical Impression: Abdominal pain Disposition: ADMITTED IP TO THIS [facility] Condition: Fair Referrals: None,Stated [Primary Care Provider] - 1-2 days
[2020-12-13] MEDS ORDERED: NALOXONE 0.4 MG/ML 1 ML VIAL IV PRN (21:18)
[2020-12-13] MEDS: ACETAMINOPHEN TAB 325 MG TAB PO PRN (21:50)
[2020-12-13] MEDS: SODIUM CHLORIDE 0.9% 1,000 ML IV SCH (22:42)
[2020-12-13] MEDS: HYDROmorphone 0.5 MG/0.5 ML SYRINGE IVP PRN (23:25)
[2020-12-14] MEDS: HYDROmorphone 0.5 MG/0.5 ML SYRINGE IVP PRN ×4 (03:55→18:30)
[2020-12-14] MEDS: SODIUM CHLORIDE 0.9% 1,000 ML IV SCH ×3 (06:20→20:46)
[2020-12-14 09:46] LABS: Basophils % (A) 0 %; Eosinophils # (A) 0.1 k/uL (0-0.7); Eosinophils % (A) 1 %; HCT 38.4 % (34.0-46.0); HGB 11.9 gm/dL (11.4-16.0); Lymphocytes # (A) 1.3 k/uL (1.0-4.8); Lymphocytes % (A) 15 %; MCH 30.2 pg (25.0-35.0); MCV 97.6 fL (80.0-100.0); Mean Platelet Volume 8.7; Monocytes # (A) 0.4 k/uL (0-1.0); Monocytes % (A) 5 %; Neutrophils # (A) 6.2 k/uL (1.3-7.7); Neutrophils % (A) 76 %; Platelet Count 257 k/uL (150-450); RBC 3.94 m/uL (3.80-5.40); RDW 12.1 % (11.5-15.5); WBC 8.2 k/uL (3.8-10.6)
[2020-12-14 09:55] LABS: ALT 14 U/L (4-34); AST 34 U/L (14-36); African American GFR (CKD) >90 (>60 ml/min/1.73 sqM); Albumin 3.5 g/dL (3.5-5.0); Albumin/Globulin Ratio 1.3; Alkaline Phosphatase 94 U/L (38-126); Anion Gap 4 mmol/L; Blood Urea Nitrogen 16 mg/dL (7-17); Calcium 8.9 mg/dL (8.4-10.2); Carbon Dioxide 29 mmol/L (22-30); Chloride 100 mmol/L (98-107); Globulin 2.6 g/dL; Glucose 78 mg/dL (74-99); Non-African American GFR(CKD) 80 (>60 ml/min/1.73 sqM); Potassium 4.1 mmol/L (3.5-5.1); Sodium 133 mmol/L (137-145); Total Bilirubin 0.5 mg/dL (0.2-1.3); Total Protein 6.1 g/dL (6.3-8.2)
[2020-12-14] MEDS: TAMSULOSIN 0.4 MG CAP.ER.24H PO SCH (10:23)
[2020-12-14] MEDS: KETOROLAC 15 MG/ML 1 ML VIAL IVP PRN ×3 (10:23→23:28)
--- NOTE | 2020-12-14 10:34 | P.GSHP ---
<Tasneem Singh - Last Filed: 12/14/20 10:50> History of Present Illness H&P Date: 12/14/20 CHIEF COMPLAINT: Right flank pain HISTORY OF PRESENT ILLNESS: This is a 65-year-old female with a known history of Sawyer-en-Y gastric bypass surgery, she's a history of abdominal surgeries with peritoneal adhesions and small bowel obstruction, colon resection, colostomy with reversal, cholecystectomy, and hysterectomy. She also has a medical history atrial fibrillation, DVT of right arm, CVA and cardiac valve replacement. Patient was a transfer from [facility]. Initially stated that she had right lower quadrant pain. She is complaining of right flank pain. She reports that she has had pain for about 3 days. She denies any prior history of kidney stones. She reports the pain is very severe. She had a computed tomography scan at [facility] that was not suggestive of acute appendicitis however appendix was not visualized. She is on Coumadin at home. Her elevated INR of 6 at [facility]. Patient denies any fever, chills or sweats. Denies any nausea or vomiting. PAST MEDICAL HISTORY: See list. PAST SURGICAL HISTORY: See list. MEDICATIONS: See list. ALLERGIES: See list. SOCIAL HISTORY: No illicit drug use. REVIEW OF SYSTEMS: CONSTITUTIONAL: Denies fever or chills. HEENT: Denies blurred vision, vision changes, or eye pain. Denies hemoptysis ENDOCRINE: Denies heat or cold intolerance. CARDIOVASCULAR: Denies chest pain or pressure. RESPIRATORY: No shortness of breath. GASTROINTESTINAL: Denies abdominal pain. Denies nausea or vomiting. NEURO: Denies history of seizures. PSYCH: No depression or suicidal ideation HEMATOLOGIC: Denies bleeding disorders. LYMPHATIC: The patient denies any lumps and bumps around the neck. GENITOURINARY: Denies any blood in urine or increased urinary frequency. MUSCULOSKELETAL: Denies myalgias. Denies joint swelling. Denies decreased range of motion beyond patients baseline. SKIN: Denies pruitis. Denies rash. PHYSICAL EXAM: VITAL SIGNS: Reviewed GENERAL: Well-developed in no acute distress. HEENT: No sclera icterus. Extraocular movements grossly intact. Moist buccal mucosa. Head is atraumatic, normocephalic. Hears conversational speech. No nasal drainage. NECK: Supple without lymphadenopathy. CHEST: Non-labored respirations and equal bilateral excursions. CARDIOVASCULAR: Palpable 2+ radial pulses. ABDOMEN: Soft. Nondistended. Tenderness with palpation of the right flank MUSCULOSKELETAL: No clubbing or cyanosis. NEUROLOGIC: No focal or lateralizing signs. Cranial nerves II through XII grossly intact. PSYCH: Appropriate affect. Alert and oriented to person, place and time. SKIN: Well perfused. Good skin turgor. LABORATORY DATA: WBC 8.2 hemoglobin 11.9 minutes to 57 sodium 133 potassium 4.1 creatinine 0.78 LFTs normal COVID-19 not detected IMAGING: ASSESSMENT: 1. Right flank pain with concerns for possible kidney stone. Patient's presentation does not reflect appendicitis 2. Prior history of Sawyer-en-Y gastric bypass 3. Coagulopathy 4. History of atrial fibrillation anticoagulated with Coumadin PLAN: -No surgical intervention planned -Kidney ultrasound ordered for further evaluation of possible kidney stones -Add Flomax 0.4 mg daily -Continue IV fluids -Continue pain medication as needed -Check urinalysis with reflux culture -Repeat INR -Consult medical service for medical management Physician Appointment Coordinator note has been reviewed by physician. Signing provider agrees with the documented findings, assessment, and plan of care. 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 , open heart, 2 artificial heart valves, right hip replacement 2017 Past Anesthesia/Blood Transfusion Reactions: No Reported Reaction Past Psychological History: Anxiety, Depression Smoking Status: Current every day smoker Past Alcohol Use History: None Reported Past Drug Use History: None Reported Additional Drug Use History / Comment(s): pt states she smokes half a pack per day Medications and Allergies Home Medications Medication Instructions Recorded Confirmed Type Amiodarone HCl [Pacerone] 200 mg PO HS 09/16/19 12/13/20 History Amitriptyline HCl [Elavil] 150 mg PO HS 09/16/19 12/13/20 History Atorvastatin [Lipitor] 10 mg PO DAILY 09/16/19 12/13/20 History Folic Acid 1 mg PO DAILY 09/16/19 12/13/20 History Furosemide [Lasix] 80 mg PO DAILY 09/16/19 12/13/20 History Montelukast [Singulair] 10 mg PO HS 09/16/19 12/13/20 History Omeprazole [PriLOSEC] 40 mg PO DAILY 09/16/19 12/13/20 History Potassium Chloride [Klor-Con 20] 20 meq PO QID 09/16/19 12/13/20 History Spironolactone 50 mg PO DAILY 09/16/19 12/13/20 History Warfarin [Coumadin] 2 mg PO HS@2100 09/16/19 12/13/20 History Loperamide [Imodium] 4 mg PO TID 01/11/20 12/13/20 History traMADol HCL [Ultram] 50 mg PO Q6H PRN 01/11/20 12/13/20 History Multivitamins, Thera [Multivitamin 1 tab PO DAILY 12/13/20 12/13/20 History (formulary)] OLANZapine 3.75 mg PO DAILY 12/13/20 12/13/20 History Pramipexole Di-HCl [Mirapex] 0.75 mg PO DAILY 12/13/20 12/13/20 History Pramipexole Di-HCl [Mirapex] 1.5 mg PO HS 12/13/20 12/13/20 History Warfarin [Coumadin] 1 mg PO TUTH@2100 12/13/20 12/13/20 History Allergies Allergy/AdvReac Type Severity Reaction Status Date / Time trazodone Allergy Rapid Verified 12/13/20 21:05 Heart Rate morphine AdvReac RLS Verified 12/13/20 21:05 zolpidem [From Ambien] AdvReac Unknown Verified 12/13/20 21:05 Surgical - Exam Vital Signs Temp Pulse Resp BP Pulse Ox 98.3 F 55 L 18 128/58 100 12/13/20 19:35 12/13/20 19:35 12/13/20 19:35 12/13/20 19:35 12/13/20 19:35 Results - Labs 12/14/20 09:03 12/14/20 09:03 Abnormal Lab Results - Last 24 Hours (Table) 12/14/20 Range/Units 09:03 Sodium 133 L (137-145) mmol/L Total Protein 6.1 L (6.3-8.2) g/dL Diabetes panel 12/14/20 Range/Units 09:03 Sodium 133 L (137-145) mmol/L Potassium 4.1 (3.5-5.1) mmol/L Chloride 100 (98-107) mmol/L Carbon Dioxide 29 (22-30) mmol/L BUN 16 (7-17) mg/dL Creatinine 0.78 (0.52-1.04) mg/dL Glucose 78 (74-99) mg/dL Calcium 8.9 (8.4-10.2) mg/dL AST 34 (14-36) U/L ALT 14 (4-34) U/L Alkaline Phosphatase 94 (38-126) U/L Total Protein 6.1 L (6.3-8.2) g/dL Albumin 3.5 (3.5-5.0) g/dL Calcium panel 12/14/20 Range/Units 09:03 Calcium 8.9 (8.4-10.2) mg/dL Albumin 3.5 (3.5-5.0) g/dL Pituitary panel 12/14/20 Range/Units 09:03 Sodium 133 L (137-145) mmol/L Potassium 4.1 (3.5-5.1) mmol/L Chloride 100 (98-107) mmol/L Carbon Dioxide 29 (22-30) mmol/L BUN 16 (7-17) mg/dL Creatinine 0.78 (0.52-1.04) mg/dL Glucose 78 (74-99) mg/dL Calcium 8.9 (8.4-10.2) mg/dL Adrenal panel 12/14/20 Range/Units 09:03 Sodium 133 L (137-145) mmol/L Potassium 4.1 (3.5-5.1) mmol/L Chloride 100 (98-107) mmol/L Carbon Dioxide 29 (22-30) mmol/L BUN 16 (7-17) mg/dL Creatinine 0.78 (0.52-1.04) mg/dL Glucose 78 (74-99) mg/dL Calcium 8.9 (8.4-10.2) mg/dL Total Bilirubin 0.5 (0.2-1.3) mg/dL AST 34 (14-36) U/L ALT 14 (4-34) U/L Alkaline Phosphatase 94 (38-126) U/L Total Protein 6.1 L (6.3-8.2) g/dL Albumin 3.5 (3.5-5.0) g/dL <Lupis Gonzalez - Last Filed: 12/15/20 08:52> History of Present Illness As above, please see additional documentation below. REASON FOR CONSULTATION: Abdominal pain HISTORY OF PRESENT ILLNESS: Tala Martinez is a 65-year-old female with prior history of gastric bypass including pre-existing history of multiple abdominal surgeries including colostomy with reversal, colectomy, lysis of adhesions. Patient reports at least 3 day history of right flank pain rating from the right lower back to the right lower quadrant. Patient reports pain was sudden onset and severe. She presents as transfer from [facility]. No reports of blood in stools. Patient has pre-existing history of bowel obstructions including intermittent abdominal pain. Patient was transferred in presumption of appendicitis. WBC has been normal and she is not on antibiotics. PAST MEDICAL HISTORY: 1. Morbid obesity due to excess calories 2. Body mass index of 56.8, initial 3. Atrial fibrillation 4. Depressive disorder 5. Hyperlipidemia 6. Congestive heart failure 7. Chronic obstructive pulmonary disease 8. Gastroesophageal reflux disease 9. Irritable bowel syndrome 10. Fibromyalgia 11. Diverticulitis 12. Angina 13. Transient ischemic attack 14. Deep venous thrombosis 15. Memory impairment 16. Pneumonia 17. Chronic renal insufficiency 18. Restless leg syndrome 19. History MRSA infection 20. Chronic back pain PAST SURGICAL HISTORY: 1. Gastric bypass 2. Colon resection 3. Colostomy with reversal 4. Back surgery 5. Two artificial valve replacement 6. section 7. Cholecystectomy 8. Hysterectomy 9. Right hip replacement 10. Tonsillectomy HOME MEDICATIONS: Home Medications Medication Instructions Recorded Confirmed Amiodarone HCl [Pacerone] 200 mg PO DAILY 09/16/19 02/01/20 Amitriptyline HCl [Elavil] 150 mg PO HS 09/16/19 02/01/20 Atorvastatin [Lipitor] 10 mg PO DAILY 09/16/19 02/01/20 Folic Acid 1 mg PO DAILY 09/16/19 02/01/20 Furosemide [Lasix] 40 mg PO BID 09/16/19 02/01/20 Montelukast [Singulair] 10 mg PO DAILY 09/16/19 02/01/20 OLANZapine 7.5 mg PO HS 09/16/19 02/01/20 Omeprazole [PriLOSEC] 40 mg PO BID 09/16/19 02/01/20 Potassium Chloride [Klor-Con 20] 20 meq PO QID 09/16/19 02/01/20 Pramipexole [Mirapex] 0.5 mg PO TID 09/16/19 02/01/20 Spironolactone 50 mg PO DAILY 09/16/19 02/01/20 Warfarin [Coumadin] 2 mg PO SUMOWEFRSA@199909/16/19 02/01/20 Loperamide [Imodium] 4 mg PO BID PRN 01/11/20 02/01/20 Warfarin [Coumadin] 3 mg PO TUTH@199901/11/20 02/01/20 traMADol HCL [Ultram] 50 mg PO Q6HR PRN 01/11/20 02/01/20 ALLERGIES: Allergies Allergy/AdvReac Type Severity Reaction Status Date / Time trazodone Allergy Rapid Verified 02/01/20 14:47 Heart Rate morphine AdvReac Unknown Verified 02/01/20 14:47 zolpidem [From Ambien] AdvReac Unknown Verified 02/01/20 14:47 SOCIAL HISTORY: Tobacco use. FAMILY HISTORY: No family history of ulcerative colitis disease or Crohn's disease. Family history of morbid obesity. No lupus in the family. No reports of stomach or esophageal cancer. REVIEW OF ORGAN SYSTEMS: CONSTITUTIONAL: At height of 5 feet 1 inches, her ideal body weight is 131 pounds. Her highest weight was 300 pounds, BMI 56.8. Her lowest weight was 145 pounds. HEENT: Denies any active troubles with vision or hearing. Wears glasses. Has occasional troubles with swallowing. ENDOCRINE: Denies diabetes. No hypothyroidism. CARDIOVASCULAR: Past reports of palpitations or heart attacks or chest pain. Has valvular replacement RESPIRATORY: Has asthma. Has COPD. GASTROINTESTINAL: Denies any bright red blood per rectum. Has chronic diarrhea. History of bowel obstruction and resection. MUSCULOSKELETAL: Has lower back pain and joint pain. Has osteoarthritis of the knees. NEURO: No headaches. No seizure disorders. PSYCH: Has depression. No suicidal ideation. RHEUMATOLOGIC: No lupus. No rheumatoid arthritis. HEMATOLOGIC: Denies any abnormal bleeding or bruising. Personal history of DVTs. On anticoagulant. SKIN: No rash. No skin cancer. PHYSICAL EXAM: VITAL SIGNS: Reviewed GENERAL: Well-developed in mild distress. HEENT: No scleral icterus. Extraocular movements grossly intact. Hears conversational speech. No nasal drainage. NECK: Supple without lymphadenopathy. CHEST: Nonlabored respirations with equal bilateral excursions. CARDIOVASCULAR: Regular rate and regular rhythm. Distal 2+ pulses. ABDOMEN: Obese, soft. No peritonitis. Well healed midline incision. Tender right flank. MUSCULOSKELETAL: No clubbing, cyanosis. NEURO: No focal or lateralizing signs. Cranial nerves 2 through 12 grossly within normal limits. PSYCH: Appropriate affect. Alert and oriented to person, place and time. SKIN: Good skin turgor. Well perfused. LABS: Reviewed. White blood cell count normal. STUDIES: CT of the abdomen and pelvis independently reviewed with limited oral a nd IV contrast. No evidence of small or large bowel dilatation or evidence of bowel obstruction. No inflammatory changes identified along the right lower quadrant. This is my independent interpretation. RECORDS: Previous records from last hospitalization in [address] of the abdomen images without finding of appendix. Additionally patient's pre-existing history of bowel obstruction and chronic abdominal pain. ASSESSMENT: 1. Right flank pain 2. History of intermittent abdominal lorna 3. Atrial fibrillation 4. Depressive disorder 5. Hyperlipidemia 6. Congestive heart failure 7. Chronic obstructive pulmonary disease 8. Gastroesophageal reflux disease 9. Irritable bowel syndrome 10. Fibromyalgia 11. Diverticulitis 12. Angina 13. Transient ischemic attack 14. Deep venous thrombosis 15. Memory impairment 16. Pneumonia 17. Chronic renal insufficiency 18. Restless leg syndrome 19. History MRSA infection 20. Chronic back pain 21. Recurrent small bowel obstruction 22. Morbid obesity due to excess calories 23. Body mass index of 56.8, initial to 35.7 24. Tobacco abuse disorder PLAN: 1. Her CT of the abdomen and pelvis was independently reviewed by me including clinical history. Suspicion of kidney stones cannot be excluded or hydroureter. Abdominal ultrasound ordered. 2. May need repeat computed tomography scan with oral and IV contrast as outside film lacked contrast 3. Consultation of hospitalist for medical management due to complex medical history Surgical - Exam Vital Signs Temp Pulse Resp BP Pulse Ox 98.3 F 55 L 18 128/58 100 12/13/20 19:35 12/13/20 19:35 12/13/20 19:35 12/13/20 19:35 12/13/20 19:35 Results - Labs 12/14/20 09:03 12/14/20 09:03 Abnormal Lab Results - Last 24 Hours (Table) 12/14/20 12/14/20 12/14/20 Range/Units 09:03 10:15 11:45 PT 45.8 H (9.0-12.0) sec INR 4.8 H (<1.2) Sodium 133 L (137-145) mmol/L Total Protein 6.1 L (6.3-8.2) g/dL Urine Ketones 1+ H (Negative) Diabetes panel 12/14/20 Range/Units 09:03 Sodium 133 L (137-145) mmol/L Potassium 4.1 (3.5-5.1) mmol/L Chloride 100 (98-107) mmol/L Carbon Dioxide 29 (22-30) mmol/L BUN 16 (7-17) mg/dL Creatinine 0.78 (0.52-1.04) mg/dL Glucose 78 (74-99) mg/dL Calcium 8.9 (8.4-10.2) mg/dL AST 34 (14-36) U/L ALT 14 (4-34) U/L Alkaline Phosphatase 94 (38-126) U/L Total Protein 6.1 L (6.3-8.2) g/dL Albumin 3.5 (3.5-5.0) g/dL Calcium panel 12/14/20 Range/Units 09:03 Calcium 8.9 (8.4-10.2) mg/dL Albumin 3.5 (3.5-5.0) g/dL Pituitary panel 12/14/20 Range/Units 09:03 Sodium 133 L (137-145) mmol/L Potassium 4.1 (3.5-5.1) mmol/L Chloride 100 (98-107) mmol/L Carbon Dioxide 29 (22-30) mmol/L BUN 16 (7-17) mg/dL Creatinine 0.78 (0.52-1.04) mg/dL Glucose 78 (74-99) mg/dL Calcium 8.9 (8.4-10.2) mg/dL Adrenal panel 12/14/20 Range/Units 09:03 Sodium 133 L (137-145) mmol/L Potassium 4.1 (3.5-5.1) mmol/L Chloride 100 (98-107) mmol/L Carbon Dioxide 29 (22-30) mmol/L BUN 16 (7-17) mg/dL Creatinine 0.78 (0.52-1.04) mg/dL Glucose 78 (74-99) mg/dL Calcium 8.9 (8.4-10.2) mg/dL Total Bilirubin 0.5 (0.2-1.3) mg/dL AST 34 (14-36) U/L ALT 14 (4-34) U/L Alkaline Phosphatase 94 (38-126) U/L Total Protein 6.1 L (6.3-8.2) g/dL Albumin 3.5 (3.5-5.0) g/dL Assessment and Plan (1) Right lower quadrant abdominal pain Current Visit: Yes Status: Acute Code(s): R10.31 - RIGHT LOWER QUADRANT PAIN SNOMED Code(s): 993751559 (2) Atrial fibrillation Current Visit: Yes Status: Acute Code(s): I48.91 - UNSPECIFIED ATRIAL FIBRILLATION SNOMED Code(s): 79914855 (3) Anticoagulant long-term use Current Visit: Yes Status: Acute Code(s): Z79.01 - SKILLED NURSING (CURRENT) USE OF ANTICOAGULANTS SNOMED Code(s): 456273077 (4) History of gastric bypass Current Visit: No Status: Acute Code(s): Z98.84 - BARIATRIC SURGERY STATUS SNOMED Code(s): 190953477 (5) Intractable abdominal pain Current Visit: No Status: Acute Code(s): R10.9 - UNSPECIFIED ABDOMINAL PAIN SNOMED Code(s): 03035312
[2020-12-14 10:54] LABS: Appearance,Urine Clear (Clear); Bilirubin,Urine Negative (Negative); Blood,Urine Negative (Negative); Color,Urine Yellow; Glucose,Urine (UA) Negative (Negative); Ketones,Urine 1+ (Negative); Leukocyte Esterase,Urine Negative (Negative); Nitrite,Urine Negative (Negative); Protein,Urine Negative (Negative); Urobilinogen,Urine <2.0 mg/dL (<2.0)
[2020-12-14] MEDS ORDERED: PANTOPRAZOLE 40 MG TABLET PO SCH (11:00)
--- NOTE | 2020-12-14 11:28 | US ---
EXAMINATION TYPE: US kidneys/renal and bladder DATE OF EXAM: 12/14/2020 COMPARISON: CT CLINICAL HISTORY: right flank pain, possible kidney stone. EXAM MEASUREMENTS: Right Kidney: 9.7 x 5.3 x 5.3 cm Left Kidney: 9.7 x 5.6 x 5.4 cm Right Kidney: No hydronephrosis or masses seen Left Kidney: No hydronephrosis or masses seen Bladder: wnl Bilateral Jets seen: No There is no evidence for hydronephrosis at this point in time. No nephrolithiasis is seen. No itzel s are identified. The urinary bladder is anechoic. IMPRESSION:
[2020-12-14 12:09] LABS: INR 4.8 (<1.2)
[2020-12-14 12:10] LABS: Prothrombin Time 45.8 sec (9.0-12.0)
[2020-12-14] MEDS: POTASSIUM CHLORIDE ER 20 MEQ TAB.ER PO SCH ×3 (12:45→20:44)
[2020-12-14] MEDS: LOPERAMIDE 2 MG CAP PO SCH ×2 (16:27→20:44)
[2020-12-14] MEDS: AMIODARONE 200 MG TAB PO SCH (20:44)
[2020-12-14] MEDS: MONTELUKAST 10 MG TAB PO SCH (20:44)
[2020-12-14] MEDS: AMITRIPTYLINE HCL 50 MG TAB PO SCH (20:45)
[2020-12-14] MEDS: PRAMIPEXOLE 0.5 MG TAB PO SCH (20:45)
[2020-12-15] MEDS: HYDROmorphone 0.5 MG/0.5 ML SYRINGE IVP PRN ×4 (02:53→20:12)
[2020-12-15] MEDS: traMADol 50 MG TAB PO PRN ×2 (02:54→09:44)
[2020-12-15] MEDS: SODIUM CHLORIDE 0.9% 1,000 ML IV SCH ×3 (05:01→20:12)
[2020-12-15] MEDS: KETOROLAC 15 MG/ML 1 ML VIAL IVP PRN ×2 (06:03→15:28)
[2020-12-15] MEDS ORDERED: ONDANSETRON 4 MG/2 ML VIAL IVP PRN (07:38)
[2020-12-15] MEDS: POTASSIUM CHLORIDE ER 20 MEQ TAB.ER PO SCH ×4 (07:41→20:12)
[2020-12-15] MEDS: MULTIVITAMINS, THERA 1 EACH TAB PO SCH (07:41)
[2020-12-15] MEDS: PRAMIPEXOLE 0.25 MG TAB PO SCH (07:41)
[2020-12-15] MEDS: SPIRONOLACTONE 25 MG TAB PO SCH (07:41)
[2020-12-15] MEDS: OLANZapine 7.5 MG TAB PO SCH (07:42)
[2020-12-15] MEDS: LOPERAMIDE 2 MG CAP PO SCH ×3 (07:42→20:12)
[2020-12-15] MEDS: FOLIC ACID 1 MG TAB PO SCH (07:43)
[2020-12-15] MEDS: ATORVASTATIN 10 MG TAB PO SCH (07:43)
[2020-12-15] MEDS: PANTOPRAZOLE 40 MG TABLET PO SCH (07:43)
[2020-12-15] MEDS: TAMSULOSIN 0.4 MG CAP.ER.24H PO SCH (07:43)
[2020-12-15] MEDS: FUROSEMIDE 80 MG TAB PO SCH (07:43)
--- NOTE | 2020-12-15 08:50 | P.GSCN ---
History of Present Illness Consult date: 12/14/20 History of present illness: REASON FOR CONSULTATION: Abdominal pain HISTORY OF PRESENT ILLNESS: Tala Martinez is a 65-year-old female with prior history of gastric bypass including pre-existing history of multiple abdominal surgeries including colostomy with reversal, colectomy, lysis of adhesions. Patient reports at least 3 day history of right flank pain rating from the right lower back to the right lower quadrant. Patient reports pain was sudden onset and severe. She presents as transfer from [facility]. No reports of blood in stools. Patient has pre-existing history of bowel obstructions including intermittent abdominal pain. Patient was transferred in presumption of appendicitis. WBC has been normal and she is not on antibiotics. PAST MEDICAL HISTORY: 1. Morbid obesity due to excess calories 2. Body mass index of 56.8, initial 3. Atrial fibrillation 4. Depressive disorder 5. Hyperlipidemia 6. Congestive heart failure 7. Chronic obstructive pulmonary disease 8. Gastroesophageal reflux disease 9. Irritable bowel syndrome 10. Fibromyalgia 11. Diverticulitis 12. Angina 13. Transient ischemic attack 14. Deep venous thrombosis 15. Memory impairment 16. Pneumonia 17. Chronic renal insufficiency 18. Restless leg syndrome 19. History MRSA infection 20. Chronic back pain PAST SURGICAL HISTORY: 1. Gastric bypass 2. Colon resection 3. Colostomy with reversal 4. Back surgery 5. Two artificial valve replacement 6. section 7. Cholecystectomy 8. Hysterectomy 9. Right hip replacement 10. Tonsillectomy HOME MEDICATIONS: Home Medications Medication Instructions Recorded Confirmed Amiodarone HCl [Pacerone] 200 mg PO DAILY 09/16/19 02/01/20 Amitriptyline HCl [Elavil] 150 mg PO HS 09/16/19 02/01/20 Atorvastatin [Lipitor] 10 mg PO DAILY 09/16/19 02/01/20 Folic Acid 1 mg PO DAILY 09/16/19 02/01/20 Furosemide [Lasix] 40 mg PO BID 09/16/19 02/01/20 Montelukast [Singulair] 10 mg PO DAILY 09/16/19 02/01/20 OLANZapine 7.5 mg PO HS 09/16/19 02/01/20 Omeprazole [PriLOSEC] 40 mg PO BID 09/16/19 02/01/20 Potassium Chloride [Klor-Con 20] 20 meq PO QID 09/16/19 02/01/20 Pramipexole [Mirapex] 0.5 mg PO TID 09/16/19 02/01/20 Spironolactone 50 mg PO DAILY 09/16/19 02/01/20 Warfarin [Coumadin] 2 mg PO SUMOWEFRSA@199909/16/19 02/01/20 Loperamide [Imodium] 4 mg PO BID PRN 01/11/20 02/01/20 Warfarin [Coumadin] 3 mg PO TUTH@199901/11/20 02/01/20 traMADol HCL [Ultram] 50 mg PO Q6HR PRN 01/11/20 02/01/20 ALLERGIES: Allergies Allergy/AdvReac Type Severity Reaction Status Date / Time trazodone Allergy Rapid Verified 02/01/20 14:47 Heart Rate morphine AdvReac Unknown Verified 02/01/20 14:47 zolpidem [From Ambien] AdvReac Unknown Verified 02/01/20 14:47 SOCIAL HISTORY: Tobacco use. FAMILY HISTORY: No family history of ulcerative colitis disease or Crohn's disease. Family history of morbid obesity. No lupus in the family. No reports of stomach or esophageal cancer. REVIEW OF ORGAN SYSTEMS: CONSTITUTIONAL: At height of 5 feet 1 inches, her ideal body weight is 131 pounds. Her highest weight was 300 pounds, BMI 56.8. Her lowest weight was 145 pounds. HEENT: Denies any active troubles with vision or hearing. Wears glasses. Has occasional troubles with swallowing. ENDOCRINE: Denies diabetes. No hypothyroidism. CARDIOVASCULAR: Past reports of palpitations or heart attacks or chest pain. Has valvular replacement RESPIRATORY: Has asthma. Has COPD. GASTROINTESTINAL: Denies any bright red blood per rectum. Has chronic diarrhea. History of bowel obstruction and resection. MUSCULOSKELETAL: Has lower back pain and joint pain. Has osteoarthritis of the knees. NEURO: No headaches. No seizure disorders. PSYCH: Has depression. No suicidal ideation. RHEUMATOLOGIC: No lupus. No rheumatoid arthritis. HEMATOLOGIC: Denies any abnormal bleeding or bruising. Personal history of DVTs. On anticoagulant. SKIN: No rash. No skin cancer. PHYSICAL EXAM: VITAL SIGNS: Reviewed GENERAL: Well-developed in mild distress. HEENT: No scleral icterus. Extraocular movements grossly intact. Hears conversational speech. No nasal drainage. NECK: Supple without lymphadenopathy. CHEST: Nonlabored respirations with equal bilateral excursions. CARDIOVASCULAR: Regular rate and regular rhythm. Distal 2+ pulses. ABDOMEN: Obese, soft. No peritonitis. Well healed midline incision. Tender right flank. MUSCULOSKELETAL: No clubbing, cyanosis. NEURO: No focal or lateralizing signs. Cranial nerves 2 through 12 grossly within normal limits. PSYCH: Appropriate affect. Alert and oriented to person, place and time. SKIN: Good skin turgor. Well perfused. LABS: Reviewed. White blood cell count normal. STUDIES: CT of the abdomen and pelvis independently reviewed with limited oral and IV contrast. No evidence of small or large bowel dilatation or evidence of bowel obstruction. No inflammatory changes identified along the right lower quadrant. This is my independent interpretation. RECORDS: Previous records from last hospitalization in [address] of the abdomen images without finding of appendix. Additionally patient's pre-existing history of bowel obstruction and chronic abdominal pain. ASSESSMENT: 1. Right flank pain 2. History of intermittent abdominal lorna 3. Atrial fibrillation 4. Depressive disorder 5. Hyperlipidemia 6. Congestive heart failure 7. Chronic obstructive pulmonary disease 8. Gastroesophageal reflux disease 9. Irritable bowel syndrome 10. Fibromyalgia 11. Diverticulitis 12. Angina 13. Transient ischemic attack 14. Deep venous thrombosis 15. Memory impairment 16. Pneumonia 17. Chronic renal insufficiency 18. Restless leg syndrome 19. History MRSA infection 20. Chronic back pain 21. Recurrent small bowel obstruction 22. Morbid obesity due to excess calories 23. Body mass index of 56.8, initial to 35.7 24. Tobacco abuse disorder PLAN: 1. Her CT of the abdomen and pelvis was independently reviewed by me including clinical history. Suspicion of kidney stones cannot be excluded or hydroureter. Abdominal ultrasound ordered. 2. May need repeat computed tomography scan with oral and IV contrast as outside film lacked contrast 3. 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 , open heart, 2 artificial heart valves, right hip replacement 2016 Past Anesthesia/Blood Transfusion Reactions: No Reported Reaction Past Psychological History: Anxiety, Depression Smoking Status: Current every day smoker Past Alcohol Use History: None Reported Past Drug Use History: None Reported Additional Drug Use History / Comment(s): pt states she smokes half a pack per day Medications and Allergies Home Medications Medication Instructions Recorded Confirmed Type Amiodarone HCl [Pacerone] 200 mg PO HS 09/16/19 12/13/20 History Amitriptyline HCl [Elavil] 150 mg PO HS 09/16/19 12/13/20 History Atorvastatin [Lipitor] 10 mg PO DAILY 09/16/19 12/13/20 History Folic Acid 1 mg PO DAILY 09/16/19 12/13/20 History Furosemide [Lasix] 80 mg PO DAILY 09/16/19 12/13/20 History Montelukast [Singulair] 10 mg PO HS 09/16/19 12/13/20 History Omeprazole [PriLOSEC] 40 mg PO DAILY 09/16/19 12/13/20 History Potassium Chloride [Klor-Con 20] 20 meq PO QID 09/16/19 12/13/20 History Spironolactone 50 mg PO DAILY 09/16/19 12/13/20 History Warfarin [Coumadin] 2 mg PO HS@2100 09/16/19 12/13/20 History Loperamide [Imodium] 4 mg PO TID 01/11/20 12/13/20 History traMADol HCL [Ultram] 50 mg PO Q6H PRN 01/11/20 12/13/20 History Multivitamins, Thera [Multivitamin 1 tab PO DAILY 12/13/20 12/13/20 History (formulary)] OLANZapine 3.75 mg PO DAILY 12/13/20 12/13/20 History Pramipexole Di-HCl [Mirapex] 0.75 mg PO DAILY 12/13/20 12/13/20 History Pramipexole Di-HCl [Mirapex] 1.5 mg PO HS 12/13/20 12/13/20 History Warfarin [Coumadin] 1 mg PO TUTH@2100 12/13/20 12/13/20 History Allergies Allergy/AdvReac Type Severity Reaction Status Date / Time trazodone Allergy Rapid Verified 12/13/20 21:05 Heart Rate morphine AdvReac RLS Verified 12/13/20 21:05 zolpidem [From Ambien] AdvReac Unknown Verified 12/13/20 21:05 Surgical - Exam Vital Signs Temp Pulse Resp BP Pulse Ox 98.3 F 55 L 18 128/58 100 12/13/20 19:35 12/13/20 19:35 12/13/20 19:35 12/13/20 19:35 12/13/20 19:35 Results - Labs 12/14/20 09:03 12/14/20 09:03 Abnormal Lab Results - Last 24 Hours (Table) 12/14/20 Range/Units 09:03 Sodium 133 L (137-145) mmol/L Total Protein 6.1 L (6.3-8.2) g/dL Diabetes panel 12/14/20 Range/Units 09:03 Sodium 133 L (137-145) mmol/L Potassium 4.1 (3.5-5.1) mmol/L Chloride 100 (98-107) mmol/L Carbon Dioxide 29 (22-30) mmol/L BUN 16 (7-17) mg/dL Creatinine 0.78 (0.52-1.04) mg/dL Glucose 78 (74-99) mg/dL Calcium 8.9 (8.4-10.2) mg/dL AST 34 (14-36) U/L ALT 14 (4-34) U/L Alkaline Phosphatase 94 (38-126) U/L Total Protein 6.1 L (6.3-8.2) g/dL Albumin 3.5 (3.5-5.0) g/dL Calcium panel 12/14/20 Range/Units 09:03 Calcium 8.9 (8.4-10.2) mg/dL Albumin 3.5 (3.5-5.0) g/dL Pituitary panel 12/14/20 Range/Units 09:03 Sodium 133 L (137-145) mmol/L Potassium 4.1 (3.5-5.1) mmol/L Chloride 100 (98-107) mmol/L Carbon Dioxide 29 (22-30) mmol/L BUN 16 (7-17) mg/dL Creatinine 0.78 (0.52-1.04) mg/dL Glucose 78 (74-99) mg/dL Calcium 8.9 (8.4-10.2) mg/dL Adrenal panel 12/14/20 Range/Units 09:03 Sodium 133 L (137-145) mmol/L Potassium 4.1 (3.5-5.1) mmol/L Chloride 100 (98-107) mmol/L Carbon Dioxide 29 (22-30) mmol/L BUN 16 (7-17) mg/dL Creatinine 0.78 (0.52-1.04) mg/dL Glucose 78 (74-99) mg/dL Calcium 8.9 (8.4-10.2) mg/dL Total Bilirubin 0.5 (0.2-1.3) mg/dL AST 34 (14-36) U/L ALT 14 (4-34) U/L Alkaline Phosphatase 94 (38-126) U/L Total Protein 6.1 L (6.3-8.2) g/dL Albumin 3.5 (3.5-5.0) g/dL Assessment and Plan (1) Right lower quadrant abdominal pain Current Visit: Yes Status: Acute Code(s): R10.31 - RIGHT LOWER QUADRANT PAIN SNOMED Code(s): 357517283 (2) Atrial fibrillation Current Visit: Yes Status: Acute Code(s): I48.91 - UNSPECIFIED ATRIAL FIBRI LLATION SNOMED Code(s): 25358639 (3) Anticoagulant long-term use Current Visit: Yes Status: Acute Code(s): Z79.01 - RESIDENTIAL (CURRENT) USE OF ANTICOAGULANTS SNOMED Code(s): 309405392 (4) History of gastric bypass Current Visit: No Status: Acute Code(s): Z98.84 - BARIATRIC SURGERY STATUS SNOMED Code(s): 350710856 (5) Intractable abdominal pain Current Visit: No Status: Acute Code(s): R10.9 - UNSPECIFIED ABDOMINAL PAIN SNOMED Code(s): 45012822
--- NOTE | 2020-12-15 11:43 | P.PN ---
Progress Note - Text Progress Note Date: 12/15/20 The patient has still has complaints of right lower quadrant and right flank abdominal pain. She states pain meds are helping slightly. On exam vital signs stable abdomen soft. Presumed nephrolithiasis. Patient will be observed.
[2020-12-15 12:43] LABS: African American GFR (CKD) >90 (>60 ml/min/1.73 sqM); Anion Gap 4 mmol/L; Blood Urea Nitrogen 10 mg/dL (7-17); Calcium 8.9 mg/dL (8.4-10.2); Carbon Dioxide 25 mmol/L (22-30); Chloride 104 mmol/L (98-107); Glucose 85 mg/dL (74-99); Non-African American GFR(CKD) 81 (>60 ml/min/1.73 sqM); Potassium 4.9 mmol/L (3.5-5.1); Sodium 133 mmol/L (137-145)
[2020-12-15] MEDS: GABAPENTIN 100 MG CAP PO SCH ×2 (18:25→22:10)
[2020-12-15] MEDS: MONTELUKAST 10 MG TAB PO SCH (20:12)
[2020-12-15] MEDS: AMIODARONE 200 MG TAB PO SCH (20:12)
[2020-12-15] MEDS: PRAMIPEXOLE 0.5 MG TAB PO SCH (20:13)
[2020-12-15] MEDS: AMITRIPTYLINE HCL 50 MG TAB PO SCH (20:13)
[2020-12-15] MEDS: ACYCLOVIR 800 MG TAB PO SCH (22:10)
[2020-12-16] MEDS: KETOROLAC 15 MG/ML 1 ML VIAL IVP PRN ×3 (00:35→15:47)
[2020-12-16] MEDS: HYDROmorphone 0.5 MG/0.5 ML SYRINGE IVP PRN ×2 (03:27→21:47)
[2020-12-16] MEDS: SODIUM CHLORIDE 0.9% 1,000 ML IV SCH ×3 (03:28→17:23)
[2020-12-16] MEDS: traMADol 50 MG TAB PO PRN ×2 (05:35→12:21)
[2020-12-16] MEDS: LOPERAMIDE 2 MG CAP PO SCH ×3 (07:41→21:47)
[2020-12-16] MEDS: SPIRONOLACTONE 25 MG TAB PO SCH (08:15)
[2020-12-16] MEDS: PANTOPRAZOLE 40 MG TABLET PO SCH (08:15)
[2020-12-16] MEDS: ACYCLOVIR 800 MG TAB PO SCH ×4 (08:15→22:20)
[2020-12-16] MEDS: GABAPENTIN 100 MG CAP PO SCH ×2 (08:15→21:39)
[2020-12-16] MEDS: FOLIC ACID 1 MG TAB PO SCH (08:15)
[2020-12-16] MEDS: FUROSEMIDE 80 MG TAB PO SCH (08:15)
[2020-12-16] MEDS: TAMSULOSIN 0.4 MG CAP.ER.24H PO SCH (08:15)
[2020-12-16] MEDS: OLANZapine 7.5 MG TAB PO SCH (08:15)
[2020-12-16] MEDS: MULTIVITAMINS, THERA 1 EACH TAB PO SCH (08:16)
[2020-12-16] MEDS: ATORVASTATIN 10 MG TAB PO SCH (08:16)
[2020-12-16] MEDS: POTASSIUM CHLORIDE ER 20 MEQ TAB.ER PO SCH ×4 (08:16→21:39)
[2020-12-16] MEDS: PRAMIPEXOLE 0.25 MG TAB PO SCH (08:16)
--- NOTE | 2020-12-16 08:29 | P.CONS ---
History of Present Illness - Reason for Consult Consult date: 12/14/20 Medical management - Chief Complaint Right flank pain - History of Present Illness 65-year-old female with a known history of Sawyer-en-Y gastric bypass surgery, she's a history of abdominal surgeries with peritoneal adhesions and small bowel obstruction, colon resection, colostomy with reversal, cholecystectomy, C- section and hysterectomy. She also has a medical history atrial fibrillation, DVT of right arm, CVA and cardiac valve replacement. Patient was a transfer from [facility]. Initially stated that she had right lower quadrant pain. She is complaining of right flank pain. She reports that she has had pain for about 3 days. She denies any prior history of kidney stones. She reports the pain is very severe. She had a computed tomography scan at [facility] that was suggestive of possible renal calculus; facility was concerned about possible appendicitis and patient was transferred to our facility for further evaluation. She is on Coumadin at home. Her elevated INR of 6 at [facility]. Review of Systems REVIEW OF SYSTEMS: CONSTITUTIONAL: No fever, no malaise, no fatigue. HEENT: No recent visual problems or hearing problems. Denied any sore throat. CARDIOVASCULAR: No chest pain, orthopnea, PND, no palpitations, no syncope. PULMONARY: No shortness of breath, no cough, no hemoptysis. GASTROINTESTINAL: No diarrhea, no nausea, no vomiting, no abdominal pain. NEUROLOGICAL: No headaches, no weakness, no numbness. HEMATOLOGICAL: Denies any bleeding or petechiae. GENITOURINARY: Denies any burning micturition, frequency, or urgency. MUSCULOSKELETAL/RHEUMATOLOGICAL: Denies any joint pain, swelling, or any muscle pain. ENDOCRINE: Denies any polyuria or polydipsia. The rest of the 14-point review of systems is negative. 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 , open heart, 2 artificial heart valves, right hip replacement 2016 Past Anesthesia/Blood Transfusion Reactions: No Reported Reaction Past Psychological History: Anxiety, Depression Smoking Status: Current every day smoker Past Alcohol Use History: None Reported Past Drug Use History: None Reported Additional Drug Use History / Comment(s): pt states she smokes half a pack per day Medications and Allergies Home Medications Medication Instructions Recorded Confirmed Type Amiodarone HCl [Pacerone] 200 mg PO HS 09/16/19 12/13/20 History Amitriptyline HCl [Elavil] 150 mg PO HS 09/16/19 12/13/20 History Atorvastatin [Lipitor] 10 mg PO DAILY 09/16/19 12/13/20 History Folic Acid 1 mg PO DAILY 09/16/19 12/13/20 History Furosemide [Lasix] 80 mg PO DAILY 09/16/19 12/13/20 History Montelukast [Singulair] 10 mg PO HS 09/16/19 12/13/20 History Omeprazole [PriLOSEC] 40 mg PO DAILY 09/16/19 12/13/20 History Potassium Chloride [Klor-Con 20] 20 meq PO QID 09/16/19 12/13/20 History Spironolactone 50 mg PO DAILY 09/16/19 12/13/20 History Warfarin [Coumadin] 2 mg PO HS@2100 09/16/19 12/13/20 History Loperamide [Imodium] 4 mg PO TID 01/11/20 12/13/20 History traMADol HCL [Ultram] 50 mg PO Q6H PRN 01/11/20 12/13/20 History Multivitamins, Thera [Multivitamin 1 tab PO DAILY 12/13/20 12/13/20 History (formulary)] OLANZapine 3.75 mg PO DAILY 12/13/20 12/13/20 History Pramipexole Di-HCl [Mirapex] 0.75 mg PO DAILY 12/13/20 12/13/20 History Pramipexole Di-HCl [Mirapex] 1.5 mg PO HS 12/13/20 12/13/20 History Warfarin [Coumadin] 1 mg PO TUTH@209912/13/20 12/13/20 History Allergies Allergy/AdvReac Type Severity Reaction Status Date / Time trazodone Allergy Rapid Verified 12/13/20 21:05 Heart Rate morphine AdvReac RLS Verified 12/13/20 21:05 zolpidem [From Ambien] AdvReac Unknown Verified 12/13/20 21:05 Physical Exam Vitals: Vital Signs Temp Pulse Pulse Resp BP BP Pulse Ox 12/14/20 07:09 97.9 F 63 20 108/54 12/14/20 00:10 99.3 F 52 L 16 122/70 97 12/13/20 23:52 97.5 F L 58 L 14 129/72 97 12/13/20 22:06 97.4 F L 54 L 18 128/64 100 12/13/20 19:35 98.3 F 55 L 18 128/58 100 Intake and Output 12/13/20 12/14/20 12/14/20 22:59 06:59 14:59 Intake Total 0 Output Total 200 Balance 0 -200 Intake: Oral 0 Output: Urine 200 Other: Voiding Method Toilet # Voids 1 Weight 90.718 kg 90.718 kg GENERAL: Well-developed in no acute distress. HEENT: No sclera icterus. Extraocular movements grossly intact. Moist buccal mucosa. Head is atraumatic, normocephalic. Hears conversational speech. No nasal drainage. NECK: Supple without lymphadenopathy. CHEST: Non-labored respirations and equal bilateral excursions. CARDIOVASCULAR: Palpable 2+ radial pulses. ABDOMEN: Soft. Nondistended. Tenderness with palpation of the right flank MUSCULOSKELETAL: No clubbing or cyanosis. NEUROLOGIC: No focal or lateralizing signs. Cranial nerves II through XII grossly intact. PSYCH: Appropriate affect. Alert and oriented to person, place and time. SKIN: Well perfused. Good skin turgor. Results CBC & Chem 7: 12/14/20 09:03 12/15/20 11:25 Labs: Abnormal Lab Results - Last 24 Hours (Table) 12/14/20 12/14/20 Range/Units 09:03 10:15 Sodium 133 L (137-145) mmol/L Total Protein 6.1 L (6.3-8.2) g/dL Urine Ketones 1+ H (Negative) Assessment and Plan Assessment: 1. Right flank pain; possible renal calculus - Patient has been placed on IV fluids and Flomax 0.4 mg daily; renal ultrasound to evaluate for possible kidney stones - UA with reflex culture is ordered and pending 2. Coagulopathy secondary to Coumadin; INR at 6 this morning; no concerns about any overt bleeding; hemoglobin stable at 11.9; we will monitor PT/INR daily with further recommendations according 3. Atrial fibrillation; rate controlled on amiodarone 200 mg daily and anticoagulated with Coumadin which remains on hold due to supratherapeutic INR 4. Asthma/COPD; not in exacerbation; Singulair 10 mg daily 5. History of DVT; anticoagulated with Coumadin; INR is supratherapeutic at this time 6. History of CVA/TIA; remains on Coumadin and Lipitor 10 mg daily DVT prophylaxis; SCDs only due to coagulopathy CODE STATUS; full code
--- NOTE | 2020-12-16 08:33 | P.PN ---
Subjective Progress Note Date: 12/15/20 Principal diagnosis: Right flank pain; possible renal stones Herpes zoster; right flank Coagulopathy secondary to Coumadin 65-year-old female with a known history of Sawyer-en-Y gastric bypass surgery, she's a history of abdominal surgeries with peritoneal adhesions and small bowel obstruction, colon resection, colostomy with reversal, cholecystectomy, C- section and hysterectomy. She also has a medical history atrial fibrillation, DVT of right arm, CVA and cardiac valve replacement. Patient was a transfer from [facility]. Initially stated that she had right lower quadrant pain. She is complaining of right flank pain. She reports that she has had pain for about 3 days. She denies any prior history of kidney stones. She reports the pain is very severe. She had a computed tomography scan at [facility] that was suggestive of possible renal calculus; facility was concerned about possible appendicitis and patient was transferred to our facility for further evaluation. She is on Coumadin at home. Her elevated INR of [address] [facility]. Objective - Vital Signs Vital signs: Vital Signs Temp 98.2 F 12/15/20 07:12 Pulse 61 12/15/20 07:12 Resp 18 12/15/20 07:12 BP 160/81 12/15/20 07:12 Pulse Ox 98 12/15/20 07:12 Intake & Output 12/14/20 12/15/20 12/15/20 18:59 06:59 18:59 Intake Total 2040 Output Total 200 Balance -200 2040 Weight 91.3 kg Intake: Intake, IV Titration 1560 Amount Sodium Chloride 0.9% 1, 1560 000 ml @ 130 mls/hr IV . Q7H42M [facility] Rx#:[id number] Oral 480 Output: Urine 200 Other: Voiding Method Toilet # Voids 2 2 - Exam GENERAL: Well-developed in no acute distress. HEENT: No sclera icterus. Extraocular movements grossly intact. Moist buccal mucosa. Head is atraumatic, normocephalic. Hears conversational speech. No nasal drainage. NECK: Supple without lymphadenopathy. CHEST: Non-labored respirations and equal bilateral excursions. CARDIOVASCULAR: Palpable 2+ radial pulses. ABDOMEN: Soft. Nondistended. Erythematous rash with occasional papules right flank extending to posterior and anterior abdominal wall consistent with herpes zoster MUSCULOSKELETAL: No clubbing or cyanosis. NEUROLOGIC: No focal or lateralizing signs. Cranial nerves II through XII grossly intact. PSYCH: Appropriate affect. Alert and oriented to person, place and time. SKIN: Well perfused. Good skin turgor. - Labs CBC & Chem 7: 12/14/20 09:03 12/15/20 11:25 Labs: Abnormal Lab Results - Last 24 Hours (Table) 12/14/20 12/14/20 Range/Units 10:15 11:45 PT 45.8 H (9.0-12.0) sec INR 4.8 H (<1.2) Urine Ketones 1+ H (Negative) Assessment and Plan Assessment: 1. Right flank pain; possible renal calculus - Patient has been placed on IV fluids and Flomax 0.4 mg daily; renal ultrasound to evaluate for possible kidney stones - UA with reflex culture is ordered and pending 2. Coagulopathy secondary to Coumadin; INR at 6 this morning; no concerns about any overt bleeding; hemoglobin stable at 11.9; we will monitor PT/INR daily with further recommendations according 3. Atrial fibrillation; rate controlled on amiodarone 200 mg daily and ant icoagulated with Coumadin which remains on hold due to supratherapeutic INR 4. Asthma/COPD; not in exacerbation; Singulair 10 mg daily 5. History of DVT; anticoagulated with Coumadin; INR is supratherapeutic at this time 6. History of CVA/TIA; remains on Coumadin and Lipitor 10 mg daily DVT prophylaxis; SCDs only due to coagulopathy CODE STATUS; full code
[2020-12-16 09:30] LABS: Basophils % (A) 1 %; Eosinophils % (A) 1 %; HCT 39.5 % (34.0-46.0); HGB 12.1 gm/dL (11.4-16.0); Lymphocytes # (A) 0.6 k/uL (1.0-4.8); Lymphocytes % (A) 8 %; MCHC 30.7 g/dL (31.0-37.0); MCV 97.7 fL (80.0-100.0); Mean Platelet Volume 8.3; Monocytes # (A) 0.5 k/uL (0-1.0); Monocytes % (A) 7 %; Neutrophils # (A) 6.4 k/uL (1.3-7.7); Neutrophils % (A) 82 %; Platelet Count 201 k/uL (150-450); RBC 4.04 m/uL (3.80-5.40); RDW 12.3 % (11.5-15.5); WBC 7.8 k/uL (3.8-10.6)
[2020-12-16 09:32] LABS: INR 4.8 (<1.2)
[2020-12-16 09:56] LABS: African American GFR (CKD) >90 (>60 ml/min/1.73 sqM); Anion Gap 6 mmol/L; Blood Urea Nitrogen 7 mg/dL (7-17); Calcium 8.9 mg/dL (8.4-10.2); Carbon Dioxide 22 mmol/L (22-30); Chloride 107 mmol/L (98-107); Glucose 87 mg/dL (74-99); Non-African American GFR(CKD) 79 (>60 ml/min/1.73 sqM); Potassium 4.3 mmol/L (3.5-5.1); Sodium 135 mmol/L (137-145)
[2020-12-16 11:48] LABS: Anion Gap 8.6 mmol/L (4.00-12.00); Calcium 8.4 mg/dL (8.7-10.3); Carbon Dioxide 18.4 mmol/L (21.6-31.8); Non-African American GFR(CKD) 76.8 (60.0-200.0); Potassium 4.5 mmol/L (3.5-5.5)
--- NOTE | 2020-12-16 11:59 | P.PN ---
Progress Note - Text Progress Note Date: 12/16/20 The patient developed a classic herpes zoster rash on her right flank. This appears to be the source of her abdominal pain. On exam her vital signs are stable. Abdomen soft. Patient will have her diet increased to regular diet. We'll Hep-Lock IV.
--- NOTE | 2020-12-16 19:36 | P.PN ---
Subjective Progress Note Date: 12/16/20 Principal diagnosis: Right flank pain; possible renal stones Herpes zoster; right flank Coagulopathy secondary to Coumadin 65-year-old female with a known history of Sawyer-en-Y gastric bypass surgery, she's a history of abdominal surgeries with peritoneal adhesions and small bowel obstruction, colon resection, colostomy with reversal, cholecystectomy, C- section and hysterectomy. She also has a medical history atrial fibrillation, DVT of right arm, CVA and cardiac valve replacement. Patient was a transfer from [facility]. Initially stated that she had right lower quadrant pain. She is complaining of right flank pain. She reports that she has had pain for about 3 days. She denies any prior history of kidney stones. She reports the pain is very severe. She had a computed tomography scan at [place] that was suggestive of possible renal calculus; facility was concerned about possible appendicitis and patient was transferred to our facility for further evaluation. She is on Coumadin at home. Her elevated INR of 6 at [facility]. 12/16/2020 Patient is seen and evaluated in room at bedside; complains of some improvement in right flank pain; reports that she does feel somewhat confused and feels like she is seeing things because of Neurontin Vital signs are reviewed and stable Patient has been started on Zovirax 800 mg 4 times a day along with Neurontin 100 mg 3 times a day for right flank and abdominal wall herpes; we will plan to back off on Neurontin down to 100 mg twice a day; continue with pain control; possible discharge in next 24-48 hours on oral medications once stable Objective - Vital Signs Vital signs: Vital Signs Temp 97.4 F L 12/16/20 07:30 Pulse 58 L 12/16/20 07:30 Resp 18 12/16/20 07:30 BP 138/56 12/16/20 07:30 Pulse Ox 99 12/16/20 07:30 Intake & Output 12/15/20 12/16/20 12/16/20 18:59 06:59 18:59 Intake Total 1040 2010 1040 Output Total 600 Balance 1040 1410 1040 Weight 92 kg Intake: Intake, IV Titration 1040 1530 1040 Amount Sodium Chloride 0.9% 1 1040 1530 1040 000 ml @ 130 mls/hr IV . [id number] [facility] Rx#:[id number] Oral 480 Output: Urine 600 Other: # Voids 3 - Exam GENERAL: Well-developed in no acute distress. HEENT: No sclera icterus. Extraocular movements grossly intact. Moist buccal mucosa. Head is atraumatic, normocephalic. Hears conversational speech. No nasal drainage. NECK: Supple without lymphadenopathy. CHEST: Non-labored respirations and equal bilateral excursions. CARDIOVASCULAR: Palpable 2+ radial pulses. ABDOMEN: Soft. Nondistended. Erythematous rash with occasional papules right flank extending to posterior and anterior abdominal wall consistent with herpes zoster MUSCULOSKELETAL: No clubbing or cyanosis. NEUROLOGIC: No focal or lateralizing signs. Cranial nerves II through XII grossly intact. PSYCH: Appropriate affect. Alert and oriented to person, place and time. SKIN: Well perfused. Good skin turgor. - Labs CBC & Chem 7: 12/16/20 09:14 12/16/20 09:20 Labs: Abnormal Lab Results - Last 24 Hours (Table) 12/15/20 12/16/20 12/16/20 Range/Units 11:25 05:18 09:14 MCHC 30.7 L (31.0-37.0) g/dL Lymphocytes # 0.6 L (1.0-4.8) k/uL PT (9.0-12.0) sec INR (<1.2) Sodium 133 L (137-145) mmol/L Chloride 110 H (96-109) mmol/L Carbon Dioxide 18.4 L (21.6-31.8) mmol/L BUN 8.0 L (9.0-27.0) mg/dL BUN/Creatinine Ratio 10.00 L (12.00-20.00) Ratio Calcium 8.4 L (8.7-10.3) mg/dL 12/16/20 12/16/20 Range/Units 09:14 09:20 MCHC (31.0-37.0) g/dL Lymphocytes # (1.0-4.8) k/uL PT 46.0 H (9.0-12.0) sec INR 4.8 H (<1.2) Sodium 135 L (137-145) mmol/L Chloride (96-109) mmol/L Carbon Dioxide (21.6-31.8) mmol/L BUN (9.0-27.0) mg/dL BUN/Creatinine Ratio (12.00-20.00) Ratio Calcium (8.7-10.3) mg/dL Assessment and Plan Assessment: 1. Right flank pain; possible renal calculus - Patient has been placed on IV fluids and Flomax 0.4 mg daily; renal ultrasound to evaluate for possible kidney stones - UA with reflex culture is ordered and pending 2. Coagulopathy secondary to Coumadin; INR at 6 this morning; no concerns about any overt bleeding; hemoglobin stable at 11.9; we will monitor PT/INR daily with further recommendations according 3. Atrial fibrillation; rate controlled on amiodarone 200 mg daily and anticoagulated with Coumadin which remains on hold due to supratherapeutic INR 4. Asthma/COPD; not in exacerbation; Singulair 10 mg daily 5. History of DVT; anticoagulated with Coumadin; INR is supratherapeutic at this time 6. History of CVA/TIA; remains on Coumadin and Lipitor 10 mg daily DVT prophylaxis; SCDs only due to coagulopathy CODE STATUS; full code
[2020-12-16] MEDS: PRAMIPEXOLE 0.5 MG TAB PO SCH (21:38)
[2020-12-16] MEDS: MONTELUKAST 10 MG TAB PO SCH (21:40)
[2020-12-16] MEDS: AMIODARONE 200 MG TAB PO SCH (21:40)
[2020-12-16] MEDS: AMITRIPTYLINE HCL 50 MG TAB PO SCH (21:47)
[2020-12-17 09:05] LABS: INR 2.86 (0.90-1.11); Prothrombin Time 29.1 sec (9.9-11.9)
[2020-12-17] MEDS: TAMSULOSIN 0.4 MG CAP.ER.24H PO SCH (09:34)
[2020-12-17] MEDS: ACYCLOVIR 800 MG TAB PO SCH ×4 (09:43→21:47)
[2020-12-17] MEDS: LOPERAMIDE 2 MG CAP PO SCH ×3 (09:43→21:46)
[2020-12-17] MEDS: PANTOPRAZOLE 40 MG TABLET PO SCH (09:43)
[2020-12-17] MEDS: ATORVASTATIN 10 MG TAB PO SCH (09:43)
[2020-12-17] MEDS: FOLIC ACID 1 MG TAB PO SCH (09:43)
[2020-12-17] MEDS: FUROSEMIDE 80 MG TAB PO SCH (09:43)
[2020-12-17] MEDS: MULTIVITAMINS, THERA 1 EACH TAB PO SCH (09:43)
[2020-12-17] MEDS: OLANZapine 7.5 MG TAB PO SCH (09:44)
[2020-12-17] MEDS: SPIRONOLACTONE 25 MG TAB PO SCH (09:44)
[2020-12-17] MEDS: PRAMIPEXOLE 0.25 MG TAB PO SCH (09:44)
[2020-12-17] MEDS: POTASSIUM CHLORIDE ER 20 MEQ TAB.ER PO SCH ×4 (09:44→21:45)
[2020-12-17] MEDS: GABAPENTIN 100 MG CAP PO SCH ×2 (09:46→21:47)
[2020-12-17 10:16] LABS: African American GFR (CKD) 77.2 (60.0-200.0); Anion Gap 8.3 mmol/L (4.00-12.00); BUN/Creat Ratio 14.44 Ratio (12.00-20.00); Calcium 8.7 mg/dL (8.7-10.3); Carbon Dioxide 20.7 mmol/L (21.6-31.8); Non-African American GFR(CKD) 66.6 (60.0-200.0); Potassium 4.9 mmol/L (3.5-5.5)
[2020-12-17 11:32] LABS: Basophils # (A) 0.03 X 10*3/uL (0.00-0.10); Basophils % (A) 0.3 %; Eosinophils # (A) 0.03 X 10*3/uL (0.04-0.35); Eosinophils % (A) 0.3 %; HCT 39.1 % (37.2-46.3); HGB 11.9 g/dL (12.0-15.0); Lymphocytes # (A) 0.77 X 10*3/uL (0.90-5.00); Lymphocytes % (A) 6.8 %; MCH 29.8 pg (27.0-32.0); MCHC 30.4 g/dL (32.0-37.0); MCV 97.8 fL (80.0-97.0); Mean Platelet Volume 12.2 fL (9.5-12.2); Monocytes # (A) 0.67 X 10*3/uL (0.20-1.00); Monocytes % (A) 5.9 %; Neutrophils # (A) 9.75 X 10*3/uL (1.80-7.70); Neutrophils % (A) 86.3 %; Platelet Count 202 X 10*3/uL (140-440); WBC 11.29 X 10*3/uL (4.50-10.00)
--- NOTE | 2020-12-17 12:08 | P.PN ---
<Tasneem Singh - Last Filed: 12/17/20 12:01> Subjective Progress Note Date: 12/17/20 CHIEF COMPLAINT: Right flank pain HISTORY OF PRESENT ILLNESS: Patient is complaining of right flank pain likely secondary to her shingles. Kidney ultrasound shows no evidence for hydronephrosis. No nephrolithiasis. No masses identified. Patient is still complaining of right flank pain. She reports that the Neurontin causes conf usion for her. She denies any nausea or vomiting. She has been up and ambulating. She is tolerating diet. Afebrile. WBC elevated at 11.29 INR 2.86 PHYSICAL EXAM: VITAL SIGNS: Reviewed GENERAL: Well-developed in no acute distress. HEENT: No sclera icterus. Extraocular movements grossly intact. Moist buccal mucosa. Head is atraumatic, normocephalic. Hears conversational speech. No nasal d rainage. NECK: Supple without lymphadenopathy. CHEST: Non-labored respirations and equal bilateral excursions. CARDIOVASCULAR: Palpable 2+ radial pulses. ABDOMEN: Soft. Nondistended. Nontender. MUSCULOSKELETAL: No clubbing or cyanosis. NEUROLOGIC: No focal or lateralizing signs. Cranial nerves II through XII grossly intact. PSYCH: Appropriate affect. Alert and oriented to person, place and time. SKIN: Well perfused. Good skin turgor. ASSESSMENT: 1. Right flank pain likely secondary to shingles 2. History of intermittent abdominal pain 3. Atrial fibrillation 4. Depressive disorder 5. Hyperlipidemia 6. Congestive heart failure 7. Chronic obstructive pulmonary disease 8. Gastroesophageal reflux disease 9. Irritable bowel syndrome 10. Fibromyalgia 11. Diverticulitis 12. Angina 13. Transient ischemic attack 14. Deep venous thrombosis 15. Memory impairment 16. Pneumonia 17. Chronic renal insufficiency 18. Restless leg syndrome 19. History MRSA infection 20. Chronic back pain 21. Recurrent small bowel obstruction 22. Morbid obesity due to excess calories 23. Body mass index of 56.8, initial to 35.7 24. Tobacco abuse disorder PLAN: -Medical service for management of shingles -No surgical intervention planned -Continue supportive care Physician Economics Lecturer note has been reviewed by physician. Signing provider agrees with the documented findings, assessment, and plan of care. Objective - Vital Signs Vital signs: Vital Signs Temp 98.3 F 12/17/20 08:00 Pulse 65 09/20/21 08:00 Resp 18 12/17/20 08:00 BP 136/73 12/17/20 08:00 Pulse Ox 98 12/17/20 08:00 Intake & Output 12/16/20 12/17/20 12/17/20 18:59 06:59 18:59 Intake Total 1040 1300 Balance 1040 1300 Weight 89 kg Intake: Intake, IV Titration 1040 900 Amount Sodium Chloride 0.9% 1, 1040 900 000 ml @ 75 mls/hr IV . [id number] [facility] Rx#:[id number] Oral 400 Other: Voiding Method Toilet # Voids 3 - Labs CBC & Chem 7: 12/17/20 06:17 12/17/20 06:17 Labs: Abnormal Lab Results - Last 24 Hours (Table) 12/17/20 12/17/20 12/17/20 Range/Units 06:17 06:17 06:17 WBC 11.29 H (4.50-10.00) X 10*3/uL RBC 4.00 L (4.10-5.20) X 10*6/uL Hgb 11.9 L (12.0-15.0) g/dL MCV 97.8 H (80.0-97.0) fL MCHC 30.4 L (32.0-37.0) g/dL Neutrophils # 9.75 H (1.80-7.70) X 10*3/uL Lymphocytes # 0.77 L (0.90-5.00) X 10*3/uL Eosinophils # 0.03 L (0.04-0.35) X 10*3/uL PT 29.1 H (9.9-11.9) sec INR 2.86 H (0.90-1.11) Carbon Dioxide 20.7 L (21.6-31.8) mmol/L <Lupis Gonzalez - Last Filed: 12/17/20 18:48> Subjective As above, please see additional documentation below. CHIEF COMPLAINT: Abdominal pain HISTORY OF PRESENT ILLNESS: Tala Martinez is a 65-year-old female admitted with intractable right lower quadrant. Over the weekend, she developed blisters along the dermatome of the right flank consistent with herpes zoster. She had been placed on Neurontin. Overall abdominal pain has improved. REVIEW OF ORGAN SYSTEMS: No fevers or chills. No nausea and vomiting. No chest pain. PHYSICAL EXAM: VITAL SIGNS: Reviewed GENERAL: Well-developed in mild distress. HEENT: No scleral icterus. Extraocular movements grossly intact. Hears conversational speech. No nasal drainage. NECK: Supple without lymphadenopathy. CHEST: Nonlabored respirations with equal bilateral excursions. CARDIOVASCULAR: Regular rate and regular rhythm. Distal 2+ pulses. ABDOMEN: Obese, soft. No peritonitis. Well healed midline incision. No peritonitis. MUSCULOSKELETAL: No clubbing, cyanosis. NEURO: No focal or lateralizing signs. Cranial nerves 2 through 12 grossly within normal limits. PSYCH: Appropriate affect. Alert and oriented to person, place and time. SKIN: Good skin turgor. Well perfused. Pustules with erythema along the right flank consistent with herpes zoster. LABS: Reviewed. White blood cell count normal. ASSESSMENT: 1. Right flank pain with herpes zoster/shingles 2. History of intermittent abdominal lorna 3. Atrial fibrillation 4. Depressive disorder 5. Hyperlipidemia 6. Congestive heart failure 7. Chronic obstructive pulmonary disease 8. Gastroesophageal reflux disease 9. Irritable bowel syndrome 10. Fibromyalgia 11. Diverticulitis 12. Angina 13. Transient ischemic attack 14. Deep venous thrombosis 15. Memory impairment 16. Pneumonia 17. Chronic renal insufficiency 18. Restless leg syndrome 19. History MRSA infection 20. Chronic back pain 21. Recurrent small bowel obstruction 22. Morbid obesity due to excess calories 23. Body mass index of 56.8, initial to 35.7 24. Tobacco abuse disorder PLAN: 1. Medical management for herpes zoster with acyclovir including Neurontin 2. Patient reports intolerance Neurontin. May benefit from alternative pain medication. 3. Gen. surgery to sign off. May follow-up as needed Objective - Vital Signs Vital signs: Vital Signs Temp 98.1 F 12/17/20 13:54 Pulse 68 12/17/20 13:54 Resp 20 12/17/20 13:54 BP 104/63 12/17/20 13:54 Pulse Ox 99 12/17/20 13:54 Intake & Output 12/16/20 12/17/20 12/17/20 18:59 06:59 18:59 Intake Total 1040 1300 Balance 1040 1300 Weight 89 kg Intake: Intake, IV Titration 1040 900 Amount Sodium Chloride 0.9% 1, 1040 900 000 ml @ 75 mls/hr IV . [id number] [facility] Rx#:[id number] Oral 400 Other: Voiding Method Toilet # Voids 3 2 - Labs CBC & Chem 7: 12/17/20 06:17 12/17/20 06:17 Labs: Abnormal Lab Results - Last 24 Hours (Table) 12/17/20 12/17/20 12/17/20 Range/Units 06:17 06:17 06:17 WBC 11.29 H (4.50-10.00) X 10*3/uL RBC 4.00 L (4.10-5.20) X 10*6/uL Hgb 11.9 L (12.0-15.0) g/dL MCV 97.8 H (80.0-97.0) fL MCHC 30.4 L (32.0-37.0) g/dL Neutrophils # 9.75 H (1.80-7.70) X 10*3/uL Lymphocytes # 0.77 L (0.90-5.00) X 10*3/uL Eosinophils # 0.03 L (0.04-0.35) X 10*3/uL PT 29.1 H (9.9-11.9) sec INR 2.86 H (0.90-1.11) Carbon Dioxide 20.7 L (21.6-31.8) mmol/L Assessment and Plan (1) Right lower quadrant abdominal pain Current Visit: Yes Status: Acute Code(s): R10.31 - RIGHT LOWER QUADRANT PAIN SNOMED Code(s): 786449214 (2) Atrial fibrillation Current Visit: Yes Status: Acute Code(s): I48.91 - UNSPECIFIED ATRIAL FIBRILLATION SNOMED Code(s): 68574267 (3) Anticoagulant long-term use Current Visit: Yes Status: Acute Code(s): Z79.01 - SENIOR CARE (CURRENT) USE OF ANTICOAGULANTS SNOMED Code(s): 811137254 (4) History of gastric bypass Current Visit: No Status: Acute Code(s): Z98.84 - BARIATRIC SURGERY STATUS SNOMED Code(s): 398574665 (5) Intractable abdominal pain Current Visit: No Status: Acute Code(s): R10.9 - UNSPECIFIED ABDOMINAL PAIN SNOMED Code(s): 89989260
[2020-12-17] MEDS ORDERED: predniSONE 20 MG TAB PO SCH (13:00)
--- NOTE | 2020-12-17 13:01 | P.CONS ---
History of Present Illness - Reason for Consult Consult date: 12/17/20 wound care - History of Present Illness This is a 65-year-old patient who follows with [facility] wound care center with 3 layer compression wraps. Patient had ulcerations to the right and left anterior lower extremity has been utilizing honey alginate to the site. The 3 layer compression wrap was removed from the right lower extremity and no open ulcerations are noted. The left compression wrap was removed. The ulceration is epithelialized. The skin is dry and scaly. Review Of Systems: Constitutional: No fever, no chills, no night sweats. No weight change. No weakness, fatigue or lethargy. No daytime sleepiness. Integumentary:reports wounds, no lesions. No rash or pruritus. No unusual bruising. No change in hair or nails. Physical exam: General Appearance: Alert, cooperative, no distress, appears stated age. Skin: See HPI all other Skin color, texture, tugor normal, no rashes or lesions. Neurologic: Alert oriented x3 Assessment: 1. Nonhealing ulceration of right lower extremity with fat layer exposure 2. Nonhealing ulceration of left lower extremity with fat layer exposure Plan: 1. Apply zinc barrier cream to bilateral lower extremities and wrap with Liborio wrap daily. Thank you for the consultation any questions contact the wound care center DNP note has been reviewed and discussed with Dr. Panda and the impression and plan of care has been directed as dictated. Past Medical History Past Medical History: Atrial Fibrillation, Asthma, Chest Pain / Angina, Heart Failure, COPD, CVA/TIA, Deep Vein Thrombosis (DVT), Fibromyalgia, Memory Im pairment, Pneumonia, Renal Disease Additional Past Medical History / Comment(s): past DVT in right upper arm and groin, 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 , open heart, 2 artificial heart valves, right hip replacement 2017 Past Anesthesia/Blood Transfusion Reactions: No Reported Reaction Past Psychological History: Anxiety, Depression Smoking Status: Current every day smoker Past Alcohol Use History: None Reported Past Drug Use History: None Reported Additional Drug Use History / Comment(s): pt states she smokes half a pack per day Medications and Allergies Home Medications Medication Instructions Recorded Confirmed Type Amiodarone HCl [Pacerone] 200 mg PO HS 09/16/19 12/13/20 History Amitriptyline HCl [Elavil] 150 mg PO HS 09/16/19 12/13/20 History Atorvastatin [Lipitor] 10 mg PO DAILY 09/16/19 12/13/20 History Folic Acid 1 mg PO DAILY 09/16/19 12/13/20 History Furosemide [Lasix] 80 mg PO DAILY 09/16/19 12/13/20 History Montelukast [Singulair] 10 mg PO HS 09/16/19 12/13/20 History Omeprazole [PriLOSEC] 40 mg PO DAILY 09/16/19 12/13/20 History Potassium Chloride [Klor-Con 20] 20 meq PO QID 09/16/19 12/13/20 History Spironolactone 50 mg PO DAILY 09/16/19 12/13/20 History Warfarin [Coumadin] 2 mg PO HS@2100 09/16/19 12/13/20 History Loperamide [Imodium] 4 mg PO TID 01/11/20 12/13/20 History traMADol HCL [Ultram] 50 mg PO Q6H PRN 01/11/20 12/13/20 History Multivitamins, Thera [Multivitamin 1 tab PO DAILY 12/13/20 12/13/20 History (formulary)] OLANZapine 3.75 mg PO DAILY 12/13/20 12/13/20 History Pramipexole Di-HCl [Mirapex] 0.75 mg PO DAILY 12/13/20 12/13/20 History Pramipexole Di-HCl [Mirapex] 1.5 mg PO HS 12/13/20 12/13/20 History Warfarin [Coumadin] 1 mg PO TUTH@209912/13/20 12/13/20 History Allergies Allergy/AdvReac Type Severity Reaction Status Date / Time trazodone Allergy Rapid Verified 12/13/20 21:05 Heart Rate morphine AdvReac RLS Verified 12/13/20 21:05 zolpidem [From Ambien] AdvReac Unknown Verified 12/13/20 21:05 Physical Exam Vitals: Vital Signs Temp Pulse Resp BP Pulse Ox 12/17/20 08:00 98.3 F 65 18 136/73 98 12/17/20 01:21 98.2 F 77 16 139/66 96 12/16/20 19:10 98.4 F 63 15 130/74 92 L 12/16/20 14:48 98.2 F 80 17 133/71 90 L Intake and Output 12/16/20 12/17/20 12/17/20 22:59 06:59 14:59 Intake Total 1300 Balance 1300 Intake: Intake, IV Titration 900 Amount Sodium Chloride 0.9% 1, 900 000 ml @ 75 mls/hr IV . [id number] [facility] Rx#:[id number] Oral 400 Other: Voiding Method Toilet # Voids 3 Weight 89 kg Results CBC & Chem 7: 12/17/20 06:17 12/17/20 06:17 Labs: Abnormal Lab Results - Last 24 Hours (Table) 12/17/20 12/17/20 12/17/20 Range/Units 06:17 06:17 06:17 WBC 11.29 H (4.50-10.00) X 10*3/uL RBC 4.00 L (4.10-5.20) X 10*6/uL Hgb 11.9 L (12.0-15.0) g/dL MCV 97.8 H (80.0-97.0) fL MCHC 30.4 L (32.0-37.0) g/dL Neutrophils # 9.75 H (1.80-7.70) X 10*3/uL Lymphocytes # 0.77 L (0.90-5.00) X 10*3/uL Eosinophils # 0.03 L (0.04-0.35) X 10*3/uL PT 29.1 H (9.9-11.9) sec INR 2.86 H (0.90-1.11) Carbon Dioxide 20.7 L (21.6-31.8) mmol/L Assessment and Plan (1) Non-pressure chronic ulcer of left calf with fat layer exposed Current Visit: Yes Status: Acute Code(s): L97.222 - NON-PRESSURE CHRONIC ULCER OF LEFT CALF W FAT LAYER EXPOSED SNOMED Code(s): 65507339098522902 (2) Non-pressure chronic ulcer of right calf with fat layer exposed Current Visit: Yes Status: Acute Code(s): L97.212 - NON-PRESSURE CHRONIC ULCER OF RIGHT CALF W FAT LAYER EXPOSED SNOMED Code(s): 90755032287196349
[2020-12-17] MEDS: CAPSAICIN 0.025% CREAM 60 GM TUBE TOPICAL SCH ×3 (13:43→21:47)
[2020-12-17] MEDS: DULoxetine HCL 20 MG CAPSULE.DR PO SCH (13:43)
[2020-12-17] MEDS: traMADol 50 MG TAB PO PRN (14:34)
[2020-12-17] MEDS: SODIUM CHLORIDE 0.9% 1,000 ML IV SCH (16:40)
[2020-12-17] MEDS: ACETAMINOPHEN TAB 325 MG TAB PO PRN (21:44)
[2020-12-17] MEDS: PRAMIPEXOLE 0.5 MG TAB PO SCH (21:46)
[2020-12-17] MEDS: MONTELUKAST 10 MG TAB PO SCH (21:46)
[2020-12-17] MEDS: AMIODARONE 200 MG TAB PO SCH (21:46)
[2020-12-17] MEDS: AMITRIPTYLINE HCL 50 MG TAB PO SCH (21:47)
[2020-12-17] MEDS: HYDROmorphone 0.5 MG/0.5 ML SYRINGE IVP PRN (23:05)
[2020-12-18] MEDS ORDERED: HYDROcodone/APAP 5-325MG 1 EACH TAB PO PRN (01:23)
[2020-12-18] MEDS ORDERED: HYDROmorphone 0.5 MG/0.5 ML SYRINGE IVP PRN (01:24)
--- NOTE | 2020-12-18 01:45 | P.PN ---
Subjective Progress Note Date: 12/17/20 65-year-old female with a known history of Sawyer-en-Y gastric bypass surgery, she's a history of abdominal surgeries with peritoneal adhesions and small bowel obstruction, colon resection, colostomy with reversal, cholecystectomy, C- section and hysterectomy. She also has a medical history atrial fibrillation, DVT of right arm, CVA and cardiac valve replacement. Patient was a transfer from [facility]. Initially stated that she had right lower quadrant pain. She is complaining of right flank pain. She reports that she has had pain for about 3 days. She denies any prior history of kidney stones. She reports the pain is very severe. She had a computed tomography scan at [place] that was suggestive of possible renal calculus; facility was concerned about possible appendicitis and patient was transferred to our facility for further evaluation. She is on Coumadin at home. Her elevated INR of 6 at [place]. 12/16/2020 Patient is seen and evaluated in room at bedside; complains of some improvement in right flank pain; reports that she does feel somewhat confused and feels like she is seeing things because of Neurontin Vital signs are reviewed and stable Patient has been started on Zovirax 800 mg 4 times a day along with Neurontin 100 mg 3 times a day for right flank and abdominal wall herpes; we will plan to back off on Neurontin down to 100 mg twice a day; continue with pain control; possible discharge in next 24-48 hours on oral medications once stable 12/17/2020 Patient is seen in follow up this morning and continues to have extreme pain of the right flank. Continued on acyclovir and was started on Gabapentin and experienced some confusion and altered mental status and discontinued with improvement in mentation. Patient will be started on Cymbalta and capsaicin cream as needed. Patient also continues on Dilaudid which will hold off on and continue with oral medications and limit narcotic use. Encouraged increased activity. WBC elevated at 11.29 and will repeat labs. INR is 2.86 and will hold coumadin today and repeat the INR in the morning. No reports of chest pain or shortness of breath noted. Patient is afebrile. Review of systems: Constitutional: No reports of fatigue, fever, or chills Cardiovascular: No reports of chest pain or palpitations Respiratory: No reports of shortness of breath or cough GI: No reports of nausea, vomiting, or diarrhea : No reports of dysuria or retention Neurovascular: No reports of weakness or numbness, reports continued right flank pain All medications have been reviewed Physical exam: GENERAL: Well-developed in no acute distress. HEENT: No sclera icterus. Extraocular movements grossly intact. Moist buccal mucosa. Head is atraumatic, normocephalic. Hears conversational speech. No nasal drainage. NECK: Supple without lymphadenopathy. Respiratory: Chest is clear to auscultation, Non-labored respirations and equal bilateral excursions. CARDIOVASCULAR: S1, S2 present ABDOMEN: Soft. Nondistended. Erythematous rash with continued oozing papules with some crusting noted right flank extending to posterior and anterior abdominal wall consistent with herpes zoster MUSCULOSKELETAL: No clubbing or cyanosis. NEUROLOGIC: No focal or lateralizing signs. Cranial nerves II through XII grossly intact. PSYCH: Appropriate affect. Alert and oriented to person, place and time. SKIN: Well perfused. Good skin turgor. 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 -Coagulopathy secondary to Coumadin; INR at 2.86 this morning; no concerns about any overt bleeding; hemoglobin stable at 11.9; we will monitor PT/INR daily -Atrial fibrillation; rate controlled on amiodarone 200 mg daily and anticoagulated with Coumadin which remains on hold due to supratherapeutic INR -Asthma/COPD; not in exacerbation; Singulair 10 mg daily -History of DVT; anticoagulated with Coumadin; INR is supratherapeutic at this time -History of CVA/TIA; remains on Coumadin and Lipitor 10 mg daily -DVT prophylaxis; SCDs only due to coagulopathy -full code Plan: Continue to monitor overnight and will add cymbalta and capsaicin cream for the right flank zoster outbreak. Wound care consulted for dressing changes to the bilateral lower extremities as she sees the wound center in the outpatient setting. Continue to hold coumadin and will repeat am labs. Patient had some acute altered mental status shortly after taking the neurontin and will discontinue. Renal ultrasound shows no hydronephrosis and no stones at this time. Possible discharge in 24 hours. Objective - Vital Signs Vital signs: Vital Signs Temp 98.3 F 12/17/20 08:00 Pulse 65 12/17/20 08:00 Resp 18 12/17/20 08:00 BP 136/73 12/17/20 08:00 Pulse Ox 98 12/17/20 08:00 Intake & Output 12/16/20 12/17/20 12/17/20 18:59 06:59 18:59 Intake Total 1040 1300 Balance 1040 1300 Weight 89 kg Intake: Intake, IV Titration 1040 900 Amount Sodium Chloride 0.9% 1, 1040 900 000 ml @ 75 mls/hr IV . [id number] [facility] Rx#:[id number] Oral 400 Other: # Voids 3 - Labs CBC & Chem 7: 12/17/20 06:17 12/17/20 06:17 Labs: Abnormal Lab Results - Last 24 Hours (Table) 12/16/20 12/16/20 12/16/20 Range/Units 05:18 09:14 09:14 MCHC 30.7 L (31.0-37.0) g/dL Lymphocytes # 0.6 L (1.0-4.8) k/uL PT 46.0 H (9.0-12.0) sec INR 4.8 H (<1.2) Sodium (137-145) mmol/L Chloride 110 H (96-109) mmol/L Carbon Dioxide 18.4 L (21.6-31.8) mmol/L BUN 8.0 L (9.0-27.0) mg/dL BUN/Creatinine Ratio 10.00 L (12.00-20.00) Ratio Calcium 8.4 L (8.7-10.3) mg/dL 12/16/20 Range/Units 09:20 MCHC (31.0-37.0) g/dL Lymphocytes # (1.0-4.8) k/uL PT (9.0-12.0) sec INR (<1.2) Sodium 135 L (137-145) mmol/L Chloride (96-109) mmol/L Carbon Dioxide (21.6-31.8) mmol/L BUN (9.0-27.0) mg/dL BUN/Creatinine Ratio (12.00-20.00) Ratio Calcium (8.7-10.3) mg/dL
[2020-12-18] MEDS: SODIUM CHLORIDE 0.9% 1,000 ML IV SCH ×2 (07:10→11:45)
[2020-12-18 07:26] LABS: INR 1.9 (<1.2); Prothrombin Time 18.5 sec (9.0-12.0)
[2020-12-18 07:33] LABS: African American GFR (CKD) 85 (>60 ml/min/1.73 sqM); Anion Gap 4 mmol/L; Blood Urea Nitrogen 14 mg/dL (7-17); Calcium 8.9 mg/dL (8.4-10.2); Carbon Dioxide 25 mmol/L (22-30); Chloride 107 mmol/L (98-107); Glucose 85 mg/dL (74-99); Non-African American GFR(CKD) 74 (>60 ml/min/1.73 sqM); Potassium 4.3 mmol/L (3.5-5.1); Sodium 136 mmol/L (137-145)
[2020-12-18 07:41] LABS: Basophils % (A) 0 %; Eosinophils % (A) 0 %; HCT 34.2 % (34.0-46.0); HGB 11.2 gm/dL (11.4-16.0); Lymphocytes # (A) 0.9 k/uL (1.0-4.8); Lymphocytes % (A) 17 %; MCH 31.3 pg (25.0-35.0); MCHC 32.8 g/dL (31.0-37.0); MCV 95.3 fL (80.0-100.0); Mean Platelet Volume 9.7; Monocytes # (A) 0.4 k/uL (0-1.0); Monocytes % (A) 7 %; Neutrophils # (A) 3.7 k/uL (1.3-7.7); Neutrophils % (A) 72 %; Platelet Count 192 k/uL (150-450); RBC 3.59 m/uL (3.80-5.40); RDW 12.7 % (11.5-15.5); WBC 5.2 k/uL (3.8-10.6)
[2020-12-18 08:06] VITALS: BP 126/75; PULSE 65; RESP 18; TEMP 98.1
[2020-12-18] MEDS: PANTOPRAZOLE 40 MG TABLET PO SCH (08:49)
[2020-12-18] MEDS: CAPSAICIN 0.025% CREAM 60 GM TUBE TOPICAL SCH (08:49)
[2020-12-18] MEDS: LOPERAMIDE 2 MG CAP PO SCH (08:49)
[2020-12-18] MEDS: PRAMIPEXOLE 0.25 MG TAB PO SCH (08:49)
[2020-12-18] MEDS: ATORVASTATIN 10 MG TAB PO SCH (08:49)
[2020-12-18] MEDS: FOLIC ACID 1 MG TAB PO SCH (08:49)
[2020-12-18] MEDS: SPIRONOLACTONE 25 MG TAB PO SCH (08:50)
[2020-12-18] MEDS: POTASSIUM CHLORIDE ER 20 MEQ TAB.ER PO SCH ×2 (08:50→12:29)
[2020-12-18] MEDS: MULTIVITAMINS, THERA 1 EACH TAB PO SCH (08:50)
[2020-12-18] MEDS: OLANZapine 7.5 MG TAB PO SCH (08:50)
[2020-12-18] MEDS: ACYCLOVIR 800 MG TAB PO SCH ×2 (08:51→12:29)
[2020-12-18] MEDS: DULoxetine HCL 20 MG CAPSULE.DR PO SCH (08:52)
[2020-12-18] MEDS: FUROSEMIDE 80 MG TAB PO SCH (08:52)
--- NOTE | 2020-12-18 11:49 | CDI ---
Documentation Clarification Form Date: 12/18/2020 11:35:59 AM From: Tatyana Garcia RN CCDS Admit Date: 12/17/2020 11:18:00 AM Patient Name: Tala Martinez Visit Number: [id number] Discharge Date: ATTENTION: The Clinical Documentation Specialists (CDI) and [facility] Coding Staff appreciate your assistance in clarifying documentation. Please respond to the clarification below the line at the bottom and electronically sign. The CDI & [facility] Coding staff will review the response and follow-up if needed. Please note: Queries are made part of the Legal Health Record. If you have any questions, please contact the author of this message via ITS. Dr. Julian Penn Your patient has the documented symptom of Altered Mental Status 12/17 Medicine progress note. Additional clarification regarding the etiology/cause of this symptom is requested. History/Risk Factors: 65-year-old female presents to the ED with right flank pain. Medical history Renal disease, Bariatric surgery, Cholecystectomy and Diverticulitis. H&P 12/14 Clinical Indicators: Continued on acyclovir and was started on Gabapentin and experienced some confusion and altered mental status and discontinued with improvement of mentation. 12/17 Medicine progress note. Treatment: 12/15 Neurontin 100mg PO TID changed 12/16 to 100mg PO BID d/c 12/17. Please clarify the etiology of the symptom of Altered Mental Status: [ x ] Toxic Metabolic Encephalopathy due to Neurontin. [ ] Other condition (please specify) [ ] Unable to determine (Template Last Revised: April 2020) MTDD
--- NOTE | 2020-12-22 07:19 | P.DS ---
Providers Date of admission: 12/17/20 11:18 Expected date of discharge: 12/18/20 Attending physician: Julian Penn Consults: 12/14/20 09:11 Consult Physician Urgent Consulting Provider: Julian Penn Consult Reason/Comments: medical management Do you want consulting provider notified?: Yes 12/14/20 11:30 Consult Physician Routine Consulting Provider: Lupis Gonzalez Consult Reason/Comments: RLQ abdominal pain Do you want consulting provider notified?: Already Contacted Primary care physician: Stated None Hospital Course: Final Diagnosis -Right flank pain; possible renal calculus ruled out, possibly secondary to shingles of the right mid back -herpes zoster right flank -acute altered mental status secondary to toxic metabolic encephalopathy related to Neurontinto, improved -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 Patient will follow-up with Radha Hagan in the outpatient setting upon discharge. Patient to continue with acyclovir for the next 7 days along with capsaicin and Cymbalta. Total time taken is greater than 35 minutes. Hospital course 65-year-old female with a known history of Sawyer-en-Y gastric bypass surgery, she's a history of abdominal surgeries with peritoneal adhesions and small bowel obstruction, colon resection, colostomy with reversal, cholecystectomy, C- section and hysterectomy. She also has a medical history atrial fibrillation, DVT of right arm, CVA and cardiac valve replacement. Patient was a transfer from [facility]. Initially stated that she had right lower quadrant pain. She is complaining of right flank pain. She reports that she has had pain for about 3 days. She denies any prior history of kidney stones. She reports the pain is very severe. She had a computed tomography scan at [place] that was suggestive of possible renal calculus; facility was concerned about possible appendicitis and patient was transferred to our facility for further evaluation. She is on Coumadin at home. Her elevated INR of 6 at [place]. 12/16/2020 Patient is seen and evaluated in room at bedside; complains of some improvement in right flank pain; reports that she does feel somewhat confused and feels like she is seeing things because of Neurontin Vital signs are reviewed and stable Patient has been started on Zovirax 800 mg 4 times a day along with Neurontin 100 mg 3 times a day for right flank and abdominal wall herpes; we will plan to back off on Neurontin down to 100 mg twice a day; continue with pain control; possible discharge in next 24-48 hours on oral medications once stable 12/17/2020 Patient is seen in follow up this morning and continues to have extreme pain of the right flank. Continued on acyclovir and was started on Gabapentin and experienced some confusion and altered mental status and discontinued with improvement in mentation. Patient will be started on Cymbalta and capsaicin cream as needed. Patient also continues on Dilaudid which will hold off on and continue with oral medications and limit narcotic use. Encouraged increased activity. WBC elevated at 11.29 and will repeat labs. INR is 2.86 and will hold coumadin today and repeat the INR in the morning. No reports of chest pain or shortness of breath noted. Patient is afebrile. 12/18/2020 Patient is seen in follow-up with no acute overnight issues noted. Patient continues having some mild right flank discomfort but states is improving. Patient requesting to go home. Patient will continue on oral acyclovir for the next 7 days along with capsaicin cream TID and will continue with ultram. Patient will follow up with primary care provider on discharge. OK to resume coumadin in am with close outpatient monitoring and repeat labs in a few days. Currently no reports of chest pain, shortness of breath, or palpitations. Patient is afebrile. No reports of nausea or vomiting and patient is tolerating diet. Patient will be discharged home. GENERAL: Well-developed in no acute distress. HEENT: No sclera icterus. Extraocular movements grossly intact. Moist buccal mucosa. Head is atraumatic, normocephalic. Hears conversational speech. No nasal drainage. NECK: Supple without lymphadenopathy. Respiratory: Chest is clear to auscultation, Non-labored respirations and equal bilateral excursions. CARDIOVASCULAR: S1, S2 present ABDOMEN: Soft. Nondistended. Erythematous rash with continued crusting noted right flank extending to posterior and anterior abdominal wall consistent with herpes zoster MUSCULOSKELETAL: No clubbing or cyanosis. NEUROLOGIC: No focal deficits. Cranial nerves II through XII grossly intact. PSYCH: Appropriate affect. Alert and oriented to person, place and time. SKIN: Well perfused. Good skin turgor. herpetic lesions noted on the right flank area with crusted lesions noted and minimal surrounding redness noted Please refer to medication reconciliation sheet for a list of medications. Patient Condition at Discharge: Fair Plan - Discharge Summary Discharge Rx Participant: No New Discharge Prescriptions: New Acetaminophen Tab [Tylenol] 650 mg PO Q6HR PRN tab PRN Reason: Mild Pain Or Fever > 100.5 Acyclovir [Zovirax] 800 mg PO QID 7 Days #28 tab DULoxetine HCL [Cymbalta] 20 mg PO DAILY 30 Days #30 cap HYDROcodone/APAP 5-325MG [[place] 5-325] 1 each PO Q6HR PRN #9 tab PRN Reason: Pain Capsaicin Cream [Trixaicin Cream] 1 applic TOPICAL TID 30 Days #1 gm Continue Amiodarone HCl [Pacerone] 200 mg PO HS Amitriptyline HCl [Elavil] 150 mg PO HS Atorvastatin [Lipitor] 10 mg PO DAILY Folic Acid 1 mg PO DAILY Furosemide [Lasix] 80 mg PO DAILY Montelukast [Singulair] 10 mg PO HS Omeprazole [PriLOSEC] 40 mg PO DAILY Spironolactone 50 mg PO DAILY Warfarin [Coumadin] 2 mg PO HS@2100 traMADol HCL [Ultram] 50 mg PO Q6H PRN PRN Reason: Pain Loperamide [Imodium] 4 mg PO TID Warfarin [Coumadin] 1 mg PO TUTH@2100 Pramipexole Di-HCl [Mirapex] 1.5 mg PO HS OLANZapine 3.75 mg PO DAILY Multivitamins, Thera [Multivitamin (formulary)] 1 tab PO DAILY Pramipexole Di-HCl [Mirapex] 0.75 mg PO DAILY Changed Potassium Chloride [Klor-Con 20] 20 meq PO DAILY 30 Days #30 tab Discharge Medication List Amiodarone HCl [Pacerone] 200 mg PO HS 09/16/19 [History] Amitriptyline HCl [Elavil] 150 mg PO HS 09/16/19 [History] Atorvastatin [Lipitor] 10 mg PO DAILY 09/16/19 [History] Folic Acid 1 mg PO DAILY 09/16/19 [History] Furosemide [Lasix] 80 mg PO DAILY 09/16/19 [History] Montelukast [Singulair] 10 mg PO HS 09/16/19 [History] Omeprazole [PriLOSEC] 40 mg PO DAILY 09/16/19 [History] Spironolactone 50 mg PO DAILY 09/16/19 [History] Warfarin [Coumadin] 2 mg PO HS@209909/16/19 [History] Loperamide [Imodium] 4 mg PO TID 01/11/20 [History] traMADol HCL [Ultram] 50 mg PO Q6H PRN 01/11/20 [History] Multivitamins, Thera [Multivitamin (formulary)] 1 tab PO DAILY 12/13/20 [History] OLANZapine 3.75 mg PO DAILY 12/13/20 [History] Pramipexole Di-HCl [Mirapex] 0.75 mg PO DAILY 12/13/20 [History] Pramipexole Di-HCl [Mirapex] 1.5 mg PO HS 12/13/20 [History] Warfarin [Coumadin] 1 mg PO TUTH@209912/13/20 [History] Acetaminophen Tab [Tylenol] 650 mg PO Q6HR PRN tab 12/18/20 [Rx] Acyclovir [Zovirax] 800 mg PO QID 7 Days #28 tab 12/18/20 [Rx] Capsaicin Cream [Trixaicin Cream] 1 applic TOPICAL TID 30 Days #1 gm 12/18/20 [Rx] DULoxetine HCL [Cymbalta] 20 mg PO DAILY 30 Days #30 cap 12/18/20 [Rx] HYDROcodone/APAP 5-325MG [[place] 5-325] 1 each PO Q6HR PRN #9 tab 12/18/20 [Rx] Potassium Chloride [Klor-Con 20] 20 meq PO DAILY 30 Days #30 tab 12/18/20 [Rx] Follow up Appointment(s)/Referral(s): [facility] [NON-STAFF] - 1-2 Days Radha Guerrero MD [REFERRING] - 12/20/20 10:30 am Patient Instructions/Handouts: Shingles (DC) Activity/Diet/Wound Care/Special Instructions: Activity Limited until follow-up Follow-up with primary care provider on discharge Resume Coumadin Continue taking acyclovir until finished Continue with wound care as you have been with bilateral lower extremity using barrier cream and [place] wraps and elevate while at rest Continue using capsaicin cream to the right back zoster area and avoid itching or scratching and wash hands frequently Discharge Disposition: HOME WITH HOME HEALTH SERVICES
== END 2020-12-18 13:34 | disposition home health service (06) ==
LOC: EC 19:33 → 4SSUR 21:18 → OBSVTOIN 12-17 11:18 → INTOOBSV 12-17 11:18 → UNDODISIN 12-18 13:34
PROVIDERS: ADMIT Internal Medicine; ATTEND Internal Medicine
DX: R10.31 Right lower quadrant pain (principal); B02.29 Other postherpetic nervous system involvement; G92 Toxic encephalopathy; D68.9 Coagulation defect, unspecified; I48.91 Unspecified atrial fibrillation; E66.01 Morbid (severe) obesity due to excess calories; Z68.43 Body mass index [BMI] 50.0-59.9, adult; J44.9 Chronic obstructive pulmonary disease, unspecified; F32.9 Major depressive disorder, single episode, unspecified; K56.609 Unspecified intestinal obstruction, unspecified as to partial versus complete obstruction; F41.9 Anxiety disorder, unspecified; F17.210 Nicotine dependence, cigarettes, uncomplicated; L97.212 Non-pressure chronic ulcer of right calf with fat layer exposed; L97.222 Non-pressure chronic ulcer of left calf with fat layer exposed; E78.5 Hyperlipidemia, unspecified; I50.9 Heart failure, unspecified; K21.9 Gastro-esophageal reflux disease without esophagitis; K58.9 Irritable bowel syndrome, unspecified; T42.6X5A Adverse effect of other antiepileptic and sedative-hypnotic drugs, initial encounter; T45.515A Adverse effect of anticoagulants, initial encounter; M79.7 Fibromyalgia; K57.92 Diverticulitis of intestine, part unspecified, without perforation or abscess without bleeding; R41.3 Other amnesia; D72.829 Elevated white blood cell count, unspecified; N18.9 Chronic kidney disease, unspecified; G25.81 Restless legs syndrome; G89.29 Other chronic pain; M54.9 Dorsalgia, unspecified; Z20.822 Contact with and (suspected) exposure to COVID-19; Z87.01 Personal history of pneumonia (recurrent); Z86.14 Personal history of Methicillin resistant Staphylococcus aureus infection; Z87.19 Personal history of other diseases of the digestive system; Z86.718 Personal history of other venous thrombosis and embolism; Z86.73 Personal history of transient ischemic attack (TIA), and cerebral infarction without residual deficits; Z90.49 Acquired absence of other specified parts of digestive tract; Z90.710 Acquired absence of both cervix and uterus; Z98.84 Bariatric surgery status; Z95.2 Presence of prosthetic heart valve; Z96.641 Presence of right artificial hip joint; Z79.899 Other long term (current) drug therapy; Z79.01 Long term (current) use of anticoagulants; Z88.5 Allergy status to narcotic agent; Z88.8 Allergy status to other drugs, medicaments and biological substances; Z84.89 Family history of other specified conditions
CPT/HCPCS: 96376 ×4; 96361 ×4; 96374; 96375; 99285; 93005; 80053; 80048 ×4; 84484; 85025 ×4; 85610 ×4; 81003; 87635; 76770; G0378 ×6; J1885 ×3; J1170 ×5

== ENCOUNTER 2021-07-29 03:48 | Inpatient (IN) | payer MEDICARE, OTHER ==
[2021-07-29] MEDS ORDERED: NALOXONE 0.4 MG/ML 1 ML VIAL IV PRN (05:22)
[2021-07-29] MEDS ORDERED: ONDANSETRON 4 MG/2 ML VIAL IVP PRN (05:22)
[2021-07-29] MEDS ORDERED: SODIUM CHLORIDE 0.9% 500 ML 500 ML IV STA (05:34)
[2021-07-29] MEDS ORDERED: SODIUM CHLORIDE 0.9% 1,000 ML IV STA (05:34)
--- NOTE | 2021-07-29 05:34 | ED ---
Abdominal Pain HPI - General Chief Complaint: Abdominal Pain Stated Complaint: Abd Pain Time Seen by Provider: 07/29/21 03:56 Source: EMS Mode of arrival: EMS Limitations: no limitations - History of Present Illness Initial Comments: This patient is 65-year-old woman who presents here as transfer from [facility]. The patient had gone has evening due to having abdominal pain. She states that it started in the evening, mainly on the right side of her abdomen. She states she was having a lot of nausea. She also had not had a bowel movement in the day. When the patient was there she was diagnosed with small bowel obstruction by computed tomography scan. Complaint: abdominal pain -: hour(s) Location: RUQ, RLQ Radiation: none Migration to: no migration Severity: moderate Quality: cramping, aching Consistency: constant Improves With: nothing Worsens With: nothing Associated Symptoms: nausea - Related Data Home Medications Medication Instructions Recorded Confirmed Amiodarone HCl [Pacerone] 200 mg PO HS 09/16/19 12/13/20 Amitriptyline HCl [Elavil] 150 mg PO HS 09/16/19 12/13/20 Atorvastatin [Lipitor] 10 mg PO DAILY 09/16/19 12/13/20 Folic Acid 1 mg PO DAILY 09/16/19 12/13/20 Furosemide [Lasix] 80 mg PO DAILY 09/16/19 12/13/20 Montelukast [Singulair] 10 mg PO HS 09/16/19 12/13/20 Omeprazole [PriLOSEC] 40 mg PO DAILY 09/16/19 12/13/20 Spironolactone 50 mg PO DAILY 09/16/19 12/13/20 Warfarin [Coumadin] 2 mg PO HS@2100 09/16/19 12/13/20 Loperamide [Imodium] 4 mg PO TID 01/11/20 12/13/20 traMADol HCL [Ultram] 50 mg PO Q6H PRN 01/11/20 12/13/20 Multivitamins, Thera [Multivitamin 1 tab PO DAILY 12/13/20 12/13/20 (formulary)] OLANZapine 3.75 mg PO DAILY 12/13/20 12/13/20 Pramipexole Di-HCl [Mirapex] 0.75 mg PO DAILY 12/13/20 12/13/20 Pramipexole Di-HCl [Mirapex] 1.5 mg PO HS 12/13/20 12/13/20 Warfarin [Coumadin] 1 mg PO TUTH@2100 12/13/20 12/13/20 Previous Rx's Medication Instructions Recorded Acetaminophen Tab [Tylenol] 650 mg PO Q6HR PRN tab 12/18/20 Acyclovir [Zovirax] 800 mg PO QID 7 Days #28 tab 12/18/20 Capsaicin Cream [Trixaicin Cream] 1 applic TOPICAL TID 30 Days #1 gm 12/18/20 DULoxetine HCL [Cymbalta] 20 mg PO DAILY 30 Days #30 cap 12/18/20 HYDROcodone/APAP 5-325MG [[place] 1 each PO Q6HR PRN #9 tab 12/18/20 5-325] Potassium Chloride [Klor-Con 20] 20 meq PO DAILY 30 Days #30 tab 12/18/20 Allergies Allergy/AdvReac Type Severity Reaction Status Date / Time trazodone Allergy Rapid Verified 07/29/21 03:51 Heart Rate morphine AdvReac RLS Verified 07/29/21 03:51 zolpidem [From Ambien] AdvReac Unknown Verified 07/29/21 03:51 Review of Systems ROS Statement: Those systems with pertinent positive or pertinent negative responses have been documented in the HPI. ROS Other: All systems not noted in ROS Statement are negative. Constitutional: Denies: fever, chills Respiratory: Denies: cough, dyspnea Cardiovascular: Denies: chest pain, palpitations Gastrointestinal: Reports: abdominal pain, nausea, vomiting, constipation. Denies: diarrhea, melena, hematochezia Genitourinary: Denies: dysuria, hematuria Musculoskeletal: Denies: back pain Skin: Denies: rash Neurological: Denies: headache, weakness Hematological/Lymphatic: Denies: easy bleeding Past Medical History Past Medical History: Atrial Fibrillation, Asthma, Chest Pain / Angina, Heart Failure, COPD, CVA/TIA, Deep Vein Thrombosis (DVT), Fibromyalgia, Memory Impairment, Pneumonia, Renal Disease Additional Past Medical History / Comment(s): past DVT in right upper arm and groin, CVA 2013 caused forgetfulness,RLS, History of Any Multi-Drug Resistant Organisms: MRSA Date of last positivie culture/infection: 2016 MDRO Source:: right hand Past Surgical History: Back Surgery, Bariatric Surgery, Cardiac Valve Replacement, Section, Cholecystectomy, Hysterectomy, Joint Replacement, Tonsillectomy Additional Past Surgical History / Comment(s): gastric bypass, ostomy reversal. , open heart, 2 artificial heart valves, right hip replacement 2017 Past Anesthesia/Blood Transfusion Reactions: No Reported Reaction Past Psychological History: Anxiety, Depression Smoking Status: Current every day smoker Past Alcohol Use History: None Reported Past Drug Use History: None Reported General Exam Limitations: no limitations General appearance: alert, in no apparent distress Head exam: Present: atraumatic, normocephalic Eye exam: Present: normal appearance. Absent: scleral icterus, conjunctival injection Respiratory exam: Present: normal lung sounds bilaterally. Absent: respiratory distress, wheezes, rales, rhonchi, stridor Cardiovascular Exam: Present: regular rate, normal rhythm, normal heart sounds. Absent: systolic murmur, diastolic murmur, rubs, gallop GI/Abdominal exam: Present: soft, tenderness. Absent: distended, guarding, rebound, rigid, mass, pulsatile mass Extremities exam: Present: normal inspection, normal capillary refill. Absent: pedal edema, calf tenderness Back exam: Present: normal inspection. Absent: CVA tenderness (R), CVA tenderness (L) Neurological exam: Present: alert Skin exam: Present: warm, dry, intact, normal color. Absent: rash Course Vital Signs 07/29/21 03:51 Temperature 97.5 F L Pulse Rate 64 Respiratory 16 Rate Blood Pressure 113/60 O2 Sat by Pulse 98 Oximetry Disposition Clinical Impression: Bowel obstruction Disposition: ADMITTED IP TO THIS HOSP Condition: Fair Is patient prescribed a controlled substance at d/c from ED?: No Referrals: Radha Guerrero MD [Primary Care Provider] - 1-2 days
[2021-07-29] MEDS ORDERED: MORPHINE SULFATE 4 MG/ML SYRINGE IVP PRN (08:17)
[2021-07-29 08:46] LABS: Basophils % (A) 0 %; Eosinophils % (A) 0 %; HCT 32.4 % (34.0-46.0); HGB 9.2 gm/dL (11.4-16.0); Hypochromasia Marked; Lymphocytes # (A) 0.6 k/uL (1.0-4.8); Lymphocytes % (A) 7 %; MCH 24.1 pg (25.0-35.0); MCHC 28.4 g/dL (31.0-37.0); MCV 84.8 fL (80.0-100.0); Monocytes # (A) 0.3 k/uL (0-1.0); Monocytes % (A) 3 %; Neutrophils # (A) 8.2 k/uL (1.3-7.7); Neutrophils % (A) 88 %; Platelet Count 313 k/uL (150-450); RBC 3.82 m/uL (3.80-5.40); RDW 14.7 % (11.5-15.5); WBC 9.3 k/uL (3.8-10.6)
[2021-07-29 08:50] LABS: Prothrombin Time 20.4 sec (9.0-12.0)
[2021-07-29 09:00] LABS: ALT 18 U/L (4-34); AST 37 U/L (14-36); African American GFR (CKD) >90 (>60 ml/min/1.73 sqM); Albumin 2.9 g/dL (3.5-5.0); Alkaline Phosphatase 100 U/L (38-126); Anion Gap 6 mmol/L; Blood Urea Nitrogen 20 mg/dL (7-17); Calcium 7.9 mg/dL (8.4-10.2); Carbon Dioxide 21 mmol/L (22-30); Chloride 108 mmol/L (98-107); Globulin 2.8 g/dL; Glucose 93 mg/dL (74-99); Non-African American GFR(CKD) >90 (>60 ml/min/1.73 sqM); Potassium 4.8 mmol/L (3.5-5.1); Sodium 135 mmol/L (137-145); Total Bilirubin 0.5 mg/dL (0.2-1.3); Total Protein 5.7 g/dL (6.3-8.2)
[2021-07-29] MEDS: FAMOTIDINE 20 MG TAB PO SCH ×2 (09:53→22:01)
--- NOTE | 2021-07-29 11:14 | P.GSCN ---
History of Present Illness Consult date: 07/29/21 History of present illness: CHIEF COMPLAINT: Abdominal pain HISTORY OF PRESENT ILLNESS: This is a 65-year-old woman who is a transfer from [facility]. Patient reports that she started having right-sided abdominal pain about 3 days ago. The pain worsened around seven o'clock last night. Pain continued to increase and on the right side. She was having nausea with dry heaves. She rated her pain about 10 out of 10. She denies any fever chills or sweats. Patient has had abdominal surgeries which include a Sawyer-en-Y, , colon resection with colostomy and reversal and cholecystectomy. She is on Coumadin for atrial fibrillation. And she's had 2 heart valves replaced. Patient is currently rating her pain about a 7 out of 10. She denies any bowel movement for about 3 days or flatus. Then this afternoon patient does report now having flatus. She had a computed tomography scan done at [facility] that showed evidence of small bowel obstruction. She was transferred to [facility] for surgical evaluation. PAST MEDICAL HISTORY: See list and prior history of shingles PAST SURGICAL HISTORY: See list. MEDICATIONS: See list. ALLERGIES: See list. SOCIAL HISTORY: No illicit drug use. REVIEW OF SYSTEMS: CONSTITUTIONAL: Denies fever or chills. HEENT: Denies blurred vision, vision changes, or eye pain. Denies hemoptysis ENDOCRINE: Denies heat or cold intolerance. CARDIOVASCULAR: Denies chest pain or pressure. RESPIRATORY: No shortness of breath. GASTROINTESTINAL: Please refer to HPI NEURO: Denies history of seizures. PSYCH: No depression or suicidal ideation HEMATOLOGIC: Denies bleeding disorders. LYMPHATIC: The patient denies any lumps and bumps around the neck. GENITOURINARY: Denies any blood in urine or increased urinary frequency. MUSCULOSKELETAL: Denies myalgias. Denies joint swelling. Denies decreased range of motion beyond patients baseline. SKIN: Denies pruitis. Denies rash. PHYSICAL EXAM: VITAL SIGNS: Reviewed GENERAL: Well-developed in no acute distress. HEENT: No sclera icterus. Extraocular movements grossly intact. Moist buccal mucosa. Head is atraumatic, normocephalic. Hears conversational speech. No nasal drainage. NECK: Supple without lymphadenopathy. CHEST: Non-labored respirations and equal bilateral excursions. CARDIOVASCULAR: Palpable 2+ radial pulses. ABDOMEN: Distended. Tenderness to palpation of the right side of the abdomen MUSCULOSKELETAL: No clubbing or cyanosis. NEUROLOGIC: No focal or lateralizing signs. Cranial nerves II through XII grossly intact. PSYCH: Appropriate affect. Alert and oriented to person, place and time. SKIN: Well perfused. Good skin turgor. LABORATORY DATA: WBC is 9.3 hemoglobin 9.2 platelets 313 INR 2.0 Sodium 135 potassium 4.8 creatinine 0.69 AST 37 ALT 18 IMAGING: Computed tomography scan abdomen and pelvis evidence of small bowel obstruction ASSESSMENT: 1. Small bowel obstruction 2. History of multiple abdominal surgeries 3. History of atrial fibrillation and anticoagulated with Coumadin 4. History of to artificial heart valves PLAN: -Keep patient nothing by mouth -Check abdominal x-ray for today -Consult cardiology for cardiac risk assessment as well as anticoagulation recommendations for during perioperative period -Continue IV fluids -Hold Coumadin due to patient possibly needing surgical intervention -Toradol added for pain -Continue supportive care Physician Test Baker note has been reviewed by physician. Signing provider agrees with the documented findings, assessment, and plan of care. Please see additional documentation below. REASON FOR CONSULTATION: Abdominal pain HISTORY OF PRESENT ILLNESS: Tala Martinez is a 65-year-old female with prior history of gastric bypass including pre-existing history of multiple abdominal surgeries including colostomy with reversal, colectomy, lysis of adhesions. She is having intermittent small bowel obstructions in the past with hospitalizations almost yearly. Patient reports at least 3 day history of right flank pain rating from the right lower back to the right lower quadrant. Patient reports pain was sudden onset and severe. She presents as transfer from [facility]. No reports of blood in stools. Patient has pre-existing history of bowel obstructions including intermittent abdominal pain. Patient was transferred in presumption of bowel obstruction. Since admission, patient reports she started to pass flatus today during assessment. Abdominal pain has been improving. She is on chronic anticoagulation for valvular replacements. PAST MEDICAL HISTORY: 1. Morbid obesity due to excess calories 2. Body mass index of 56.8, initial 3. Atrial fibrillation 4. Depressive disorder 5. Hyperlipidemia 6. Congestive heart failure 7. Chronic obstructive pulmonary disease 8. Gastroesophageal reflux disease 9. Irritable bowel syndrome 10. Fibromyalgia 11. Diverticulitis 12. Angina 13. Transient ischemic attack 14. Deep venous thrombosis 15. Memory impairment 16. Pneumonia 17. Chronic renal insufficiency 18. Restless leg syndrome 19. History MRSA infection 20. Chronic back pain 21. Chronic venous insufficiency PAST SURGICAL HISTORY: 1. Gastric bypass 2. Colon resection 3. Colostomy with reversal 4. Back surgery 5. Two artificial valve replacement 6. section 7. Cholecystectomy 8. Hysterectomy 9. Right hip replacement 10. Tonsillectomy HOME MEDICATIONS: Home Medications Medication Instructions Recorded Confirmed Amiodarone HCl [Pacerone] 200 mg PO HS 09/16/19 07/29/21 Atorvastatin [Lipitor] 10 mg PO DAILY 09/16/19 07/29/21 Folic Acid 1 mg PO DAILY 09/16/19 07/29/21 Furosemide [Lasix] 80 mg PO BID 09/16/19 07/29/21 Montelukast [Singulair] 10 mg PO HS 09/16/19 07/29/21 Omeprazole [PriLOSEC] 40 mg PO DAILY 09/16/19 07/29/21 Spironolactone 50 mg PO DAILY 09/16/19 07/29/21 Warfarin [Coumadin] 2 mg PO SUMOWEFRSA 09/16/19 07/29/21 Loperamide [Imodium] 4 mg PO TID 01/11/20 07/29/21 traMADol HCL [Ultram] 50 mg PO Q6H PRN 01/11/20 07/29/21 Multivitamins, Thera [Multivitamin 1 tab PO DAILY 12/13/20 07/29/21 (formulary)] OLANZapine 7.5 mg PO DAILY 12/13/20 07/29/21 Pramipexole Di-HCl [Mirapex] 0.75 mg PO DAILY 12/13/20 07/29/21 Pramipexole Di-HCl [Mirapex] 1.5 mg PO HS 12/13/20 07/29/21 Warfarin [Coumadin] 3 mg PO TUTH@2100 12/13/20 07/29/21 Previous Rx's Medication Instructions Recorded Potassium Chloride [Klor-Con 20] 20 meq PO DAILY 30 Days #30 tab 12/18/20 ALLERGIES: Allergies Allergy/AdvReac Type Severity Reaction Status Date / Time trazodone Allergy Rapid Verified 07/29/21 03:51 Heart Rate morphine AdvReac RLS Verified 07/29/21 03:51 zolpidem [From Ambien] AdvReac Unknown Verified 07/29/21 03:51 SOCIAL HISTORY: Tobacco use. FAMILY HISTORY: No family history of ulcerative colitis disease or Crohn's d isease. Family history of morbid obesity. No lupus in the family. No reports of stomach or esophageal cancer. REVIEW OF ORGAN SYSTEMS: CONSTITUTIONAL: At height of 5 feet 1 inches, her ideal body weight is 131 pounds. Her highest weight was 300 pounds, BMI 56.8. Her lowest weight was 145 pounds. HEENT: Denies any active troubles with vision or hearing. Wears glasses. Has occasional troubles with swallowing. ENDOCRINE: Denies diabetes. No hypothyroidism. CARDIOVASCULAR: Past reports of palpitations or heart attacks or chest pain. Has valvular replacement RESPIRATORY: Has asthma. Has COPD. GASTROINTESTINAL: Denies any bright red blood per rectum. Has chronic diarrhea. History of bowel obstruction and resection. MUSCULOSKELETAL: Has lower back pain and joint pain. Has osteoarthritis of the knees. Has chronic venous insufficiency of the lower extremities. NEURO: No headaches. No seizure disorders. PSYCH: Has depression. No suicidal ideation. RHEUMATOLOGIC: No lupus. No rheumatoid arthritis. HEMATOLOGIC: Denies any abnormal bleeding or bruising. Personal history of DV Ts. On anticoagulant. SKIN: No rash. No skin cancer. PHYSICAL EXAM: VITAL SIGNS: Reviewed GENERAL: Well-developed in mild distress. HEENT: No scleral icterus. Extraocular movements grossly intact. Hears conversational speech. No nasal drainage. NECK: Supple without lymphadenopathy. CHEST: Nonlabored respirations with equal bilateral excursions. CARDIOVASCULAR: Regular rate and regular rhythm. Distal 2+ pulses. ABDOMEN: Obese, soft. No peritonitis. Well healed midline incision. Generalized tenderness. MUSCULOSKELETAL: No clubbing, cyanosis. Bilateral chronic venous insufficiency NEURO: No focal or lateralizing signs. Cranial nerves 2 through 12 grossly within normal limits. PSYCH: Appropriate affect. Alert and oriented to person, place and time. SKIN: Good skin turgor. Well perfused. LABS: Reviewed. White blood cell count normal. INR 2.0. Hemoglobin 9.2. STUDIES: CT of the abdomen and pelvis independently reviewed from [facility] demonstrates diffuse small bowel gas pattern including air within the colon. Features more likely consistent with ileus versus bowel obstruction. No mesenteric swirl. This my independent interpretation. ASSESSMENT: 1. Small bowel obstruction per outside CT 2. History of intermittent abdominal pain 3. Atrial fibrillation 4. Depressive disorder 5. Hyperlipidemia 6. Congestive heart failure 7. Chronic obstructive pulmonary disease 8. Gastroesophageal reflux disease 9. Irritable bowel syndrome 10. Fibromyalgia 11. Diverticulitis 12. Angina 13. Transient ischemic attack 14. Deep venous thrombosis 15. Memory impairment 16. Pneumonia 17. Chronic renal insufficiency 18. Restless leg syndrome 19. History MRSA infection 20. Chronic back pain 21. Recurrent small bowel obstruction 22. Morbid obesity due to excess calories 23. Body mass index of 56.8, initial to 35.7 24. Tobacco abuse disorder PLAN: 1. Abdominal x-ray advised due to improving symptoms. 2. Patient is high risk for surgical intervention including mitral valvular replacement and chronic anticoagulation. Recommend cardiology risk assessment prior to surgical intervention. 3. Coumadin and INR is therapeutic at 2.0. Recommend holding vitamin K due to valvular replacement 4. Surgical intervention described should she not improve or decline ADDENDUM: Abdominal x-ray independent reviewed without evidence of bowel obstruction. Diffuse bowel gas pattern. 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,RLS, aortic and mitral mechanical heart valves History of Any Multi-Drug Resistant Organisms: MRSA Year Discovered:: 2017 MDRO Source:: right hand Past Surgical History: Back Surgery, Bariatric Surgery, Cardiac Valve Replacement, Section, Cholecystectomy, Hysterectomy, Joint Replacement, Tonsillectomy Additional Past Surgical History / Comment(s): gastric bypass, ostomy with reversal for diverticultis with rupture , open heart, 2 artificial heart valves, right hip replacement 2016 Past Anesthesia/Blood Transfusion Reactions: No Reported Reaction Past Psychological History: Anxiety, Depression Smoking Status: Current every day smoker (04/02 PPD) Past Alcohol Use History: None Reported Past Drug Use History: None Reported - Past Family History Father Family Medical History: Unable to Obtain Additional Family Medical History / Comment(s): patient unaware of hx Mother Family Medical History: Unable to Obtain (patient unaware) Medications and Allergies Home Medications Medication Instructions Recorded Confirmed Type Amiodarone HCl [Pacerone] 200 mg PO HS 09/16/19 07/29/21 History Atorvastatin [Lipitor] 10 mg PO DAILY 09/16/19 07/29/21 History Folic Acid 1 mg PO DAILY 09/16/19 07/29/21 History Furosemide [Lasix] 80 mg PO BID 09/16/19 07/29/21 History Montelukast [Singulair] 10 mg PO HS 09/16/19 07/29/21 History Omeprazole [PriLOSEC] 40 mg PO DAILY 09/16/19 07/29/21 History Spironolactone 50 mg PO DAILY 09/16/19 07/29/21 History Warfarin [Coumadin] 2 mg PO SUMOWEFRSA 09/16/19 07/29/21 History Loperamide [Imodium] 4 mg PO TID 01/11/20 07/29/21 History traMADol HCL [Ultram] 50 mg PO Q6H PRN 01/11/20 07/29/21 History Multivitamins, Thera [Multivitamin 1 tab PO DAILY 12/13/20 07/29/21 History (formulary)] OLANZapine 7.5 mg PO DAILY 12/13/20 07/29/21 History Pramipexole Di-HCl [Mirapex] 0.75 mg PO DAILY 12/13/20 07/29/21 History Pramipexole Di-HCl [Mirapex] 1.5 mg PO HS 12/13/20 07/29/21 History Warfarin [Coumadin] 3 mg PO TUTH@2100 12/13/20 07/29/21 History Potassium Chloride [Klor-Con 20] 20 meq PO DAILY 30 Days #30 tab 12/18/20 07/29/21 Rx Allergies Allergy/AdvReac Type Severity Reaction Status Date / Time trazodone Allergy Rapid Verified 07/29/21 03:51 Heart Rate morphine AdvReac RLS Verified 07/29/21 03:51 zolpidem [From Ambien] AdvReac Unknown Verified 07/29/21 03:51 Surgical - Exam Vital Signs Temp Pulse Resp BP Pulse Ox 97.5 F L 64 16 113/60 98 07/29/21 03:51 07/29/21 03:51 07/29/21 03:51 07/29/21 03:51 07/29/21 03:51 Results - Labs 07/29/21 08:21 07/29/21 08:21 Abnormal Lab Results - Last 24 Hours (Table) 07/29/21 07/29/21 07/29/21 Range/Units 08:21 08:21 08:21 Hgb 9.2 L (11.4-16.0) gm/dL Hct 32.4 L (34.0-46.0) % MCH 24.1 L (25.0-35.0) pg MCHC 28.4 L (31.0-37.0) g/dL Neutrophils # 8.2 H (1.3-7.7) k/uL Lymphocytes # 0.6 L (1.0-4.8) k/uL PT 20.4 H (9.0-12.0) sec INR 2.0 H (<1.2) Sodium 135 L (137-145) mmol/L Chloride 108 H (98-107) mmol/L Carbon Dioxide 21 L (22-30) mmol/L BUN 20 H (7-17) mg/dL Calcium 7.9 L (8.4-10.2) mg/dL AST 37 H (14-36) U/L Total Protein 5.7 L (6.3-8.2) g/dL Albumin 2.9 L (3.5-5.0) g/dL Diabetes panel 07/29/21 Range/Units 08:21 Sodium 135 L (137-145) mmol/L Potassium 4.8 (3.5-5.1) mmol/L Chloride 108 H (98-107) mmol/L Carbon Dioxide 21 L (22-30) mmol/L BUN 20 H (7-17) mg/dL Creatinine 0.69 (0.52-1.04) mg/dL Glucose 93 (74-99) mg/dL Calcium 7.9 L (8.4-10.2) mg/dL AST 37 H (14-36) U/L ALT 18 (4-34) U/L Alkaline Phosphatase 100 (38-126) U/L Total Protein 5.7 L (6.3-8.2) g/dL Albumin 2.9 L (3.5-5.0) g/dL Calcium panel 07/29/21 Range/Units 08:21 Calcium 7.9 L (8.4-10.2) mg/dL Albumin 2.9 L (3.5-5.0) g/dL Pituitary panel 07/29/21 Range/Units 08:21 Sodium 135 L (137-145) mmol/L Potassium 4.8 (3.5-5.1) mmol/L Chloride 108 H (98-107) mmol/L Carbon Dioxide 21 L (22-30) mmol/L BUN 20 H (7-17) mg/dL Creatinine 0.69 (0.52-1.04) mg/dL Glucose 93 (74-99) mg/dL Calcium 7.9 L (8.4-10.2) mg/dL Adrenal panel 07/29/21 Range/Units 08:21 Sodium 135 L (137-145) mmol/L Potassium 4.8 (3.5-5.1) mmol/L Chloride 108 H (98-107) mmol/L Carbon Dioxide 21 L (22-30) mmol/L BUN 20 H (7-17) mg/dL Creatinine 0.69 (0.52-1.04) mg/dL Glucose 93 (74-99) mg/dL Calcium 7.9 L (8.4-10.2) mg/dL Total Bilirubin 0.5 (0.2-1.3) mg/dL AST 37 H (14-36) U/L ALT 18 (4-34) U/L Alkaline Phosphatase 100 (38-126) U/L Total Protein 5.7 L (6.3-8.2) g/dL Albumin 2.9 L (3.5-5.0) g/dL
[2021-07-29] MEDS: FOLIC ACID 1 MG TAB PO SCH (11:30)
[2021-07-29] MEDS: SPIRONOLACTONE 25 MG TAB PO SCH (11:30)
[2021-07-29] MEDS: PANTOPRAZOLE 40 MG TABLET PO SCH (11:31)
[2021-07-29] MEDS: FUROSEMIDE 80 MG TAB PO SCH ×2 (11:31→16:11)
[2021-07-29] MEDS: ATORVASTATIN 10 MG TAB PO SCH (11:31)
[2021-07-29] MEDS: MULTIVITAMINS, THERA 1 EACH TAB PO SCH (11:31)
[2021-07-29] MEDS: OLANZapine 7.5 MG TAB PO SCH (11:31)
[2021-07-29] MEDS: PRAMIPEXOLE 0.25 MG TAB PO SCH (11:31)
[2021-07-29] MEDS: ACETAMINOPHEN TAB 325 MG TAB PO PRN ×2 (11:32→19:06)
--- NOTE | 2021-07-29 11:41 | P.HPIM ---
History of Present Illness H&P Date: 07/29/21 Chief Complaint: abdominal pain Patient is a 65-year-old female with a complex medical history including aortic and mitral valve replacement mechanical on Coumadin, COPD, COPD, hypertension, dyslipidemia, and prior colostomy with reversal secondary to diverticulitis who presented initially to [facility] with complaints of abdominal pain. There she underwent an extensive evaluation was found to have a small bowel obstruction. He was she was subsequently transferred here she is followed with Dr. Gonzalez in the past. Patient seen and examined at bedside. ABD pain started 2 hours prior to arrival to [place]. History of bowel obstruction in the past. + nausea and vomiting which has resolved. Had not pooped for 2 days which is abnormal for her after gastric bypass. She denies any recent cough, cold, fever, flu, rigors. She has not ate anything unusual. Pertinent positives and negatives as discussed in HPI, a complete review of systems was performed and all other systems are negative. General: ill appearing, no distress, appears at stated age Derm: warm, dry Head: atraumatic, normocephalic, symmetric Eyes: EOMI, no lid lag, anicteric sclera, pupils equal round reactive to light ENT: Nose and ears atraumatic, no thrush, no pharyngeal erythema Neck: No thyromegaly, no cervical lymphadenopathy, trachea midline, supple Mouth: no lip lesion, mucus membranes moist Cardiovascular: S1S2 reg, no murmur, positive posterior tibial pulse bilateral, no edema, capillary refill less than 2 seconds Lungs: Decreased bs bilateral, no ronchi, no rales, no wheeze, no accessory muscle use Abdominal: soft, nontender to palpation, no guarding, no appreciable organomegaly, normal bowel sounds Ext: no gross muscle atrophy, muscle strength muscle strength 5 out of 5 in all 4 extremities, no contractures Neuro: CN II-XI grossly intact, light touch intact all 4 extremities, finger to nose within normal limits, Psych: Alert, oriented, appropriate affect Assessment/Plan: SBO - surgery recs - NPO Anemia - follow CBC - No indications for transfusion Paroxysmal A fib Mitral/Aortic Valve replacement Chronic CHF with unknown EF - coumadin, pharmacy to dose - lasix, spironolactone - Amiodarone Chronic: Fibromyalgia History of CVA with resultant memory impairment History of DVT COPD without exacerbation Records patient has a history of chronic kidney disease at this time her GFR is greater than 90. Home meds reviewed and ordered as indicated The patient is admitted with an anticipated greater than 2 midnight stay for evaluation of SBO. CODE STATUS:Full DVT prophylaxis: Coumadin Discussed with: Patient, nursing Anticipated discharge date: in 3-[address]: home A total of 65 minutes was spent on the care of this complex patient more than 50% of the time was spent in counseling and care coordination. Past Medical History Past Medical History: Atrial Fibrillation, Asthma, Chest Pain / Angina, Heart Failure, COPD, CVA/TIA, Deep Vein Thrombosis (DVT), Fibromyalgia, GERD/Reflux, Hyperlipidemia, Hypertension, Memory Impairment, Pneumonia, Renal Disease Additional Past Medical History / Comment(s): 2012 CVA with some memory issues, urinary retention/UTIs, CKD, ileus/SBO, diverticulitis/bowel resection/past colostomy, chronic diarrhea, RLS, DVT R upper arm/groin, chronic bilateral leg pain, bilateral leg edema, currently has bilateral lower leg wounds/seen at [facility], covid pneumonia. History of Any Multi-Drug Resistant Organisms: MRSA Date of last positivie culture/infection: 2016 MDRO Source:: right hand Past Surgical History: Back Surgery, Bariatric Surgery, Bowel Resection, Cardiac Valve Replacement, Section, Cholecystectomy, Hysterectomy, Joint Replacement, Orthopedic Surgery, Tonsillectomy Additional Past Surgical History / Comment(s): Bowel resection/colostomy with revision then reversal, 2 artificial cardiac valves, gastric bypass, back fusion, cervical surgery, R hand surgery, bilateral carpal tunnel releases, R total hip arthroplasty Past Anesthesia/Blood Transfusion Reactions: No Reported Reaction Additional Past Anesthesia/Blood Transfusion Reaction / Comment(s): Pt has received blood in past without reaction. Smoking Status: Current every day smoker - Past Family History Father Family Medical History: Unable to Obtain Additional Family Medical History / Comment(s): Father unexpectantly. Mother Family Medical History: Unable to Obtain (patient unaware) Additional Family Medical History / Comment(s): Mother had "lung and heart problems" Medications and Allergies Home Medications Medication Instructions Recorded Confirmed Type Amiodarone HCl [Pacerone] 200 mg PO HS 09/16/19 07/29/21 History Atorvastatin [Lipitor] 10 mg PO DAILY 09/16/19 07/29/21 History Folic Acid 1 mg PO DAILY 09/16/19 07/29/21 History Furosemide [Lasix] 80 mg PO BID 09/16/19 07/29/21 History Montelukast [Singulair] 10 mg PO HS 09/16/19 07/29/21 History Omeprazole [PriLOSEC] 40 mg PO DAILY 09/16/19 07/29/21 History Spironolactone 50 mg PO DAILY 09/16/19 07/29/21 History Warfarin [Coumadin] 2 mg PO SUMOWEFRSA 09/16/19 07/29/21 History Loperamide [Imodium] 4 mg PO TID 01/11/20 07/29/21 History traMADol HCL [Ultram] 50 mg PO Q6H PRN 01/11/20 07/29/21 History Multivitamins, Thera [Multivitamin 1 tab PO DAILY 12/13/20 07/29/21 History (formulary)] OLANZapine 7.5 mg PO DAILY 12/13/20 07/29/21 History Pramipexole Di-HCl [Mirapex] 0.75 mg PO DAILY 12/13/20 07/29/21 History Pramipexole Di-HCl [Mirapex] 1.5 mg PO HS 12/13/20 07/29/21 History Warfarin [Coumadin] 3 mg PO TUTH@2100 12/13/20 07/29/21 History Potassium Chloride [Klor-Con 20] 20 meq PO DAILY 30 Days #30 tab 12/18/20 07/29/21 Rx Allergies Allergy/AdvReac Type Severity Reaction Status Date / Time trazodone Allergy Rapid Verified 07/29/21 03:51 Heart Rate morphine AdvReac RLS Verified 07/29/21 03:51 zolpidem [From Ambien] AdvReac Unknown Verified 07/29/21 03:51 Physical Exam Osteopathic Statement: *. No significant issues noted on an osteopathic structural exam other than those noted in the History and Physical/Consult. Vitals: Vital Signs Temp Pulse Pulse Resp BP BP Pulse Ox 07/29/21 07:49 97.9 F 63 19 107/64 96 07/29/21 05:56 60 16 100/59 97 07/29/21 04:56 60 18 106/58 98 07/29/21 03:51 97.5 F L 64 16 113/60 98 Intake and Output 07/28/21 07/29/21 07/29/21 22:59 06:59 14:59 Other: Voiding Method Toilet Weight 90.718 kg 90.718 kg Results CBC & Chem 7: 07/29/21 08:21 07/29/21 08:21 Labs: Abnormal Lab Results - Last 24 Hours (Table) 07/29/21 07/29/21 07/29/21 Range/Units 08:21 08:21 08:21 Hgb 9.2 L (11.4-16.0) gm/dL Hct 32.4 L (34.0-46.0) % MCH 24.1 L (25.0-35.0) pg MCHC 28.4 L (31.0-37.0) g/dL Neutrophils # 8.2 H (1.3-7.7) k/uL Lymphocytes # 0.6 L (1.0-4.8) k/uL PT 20.4 H (9.0-12.0) sec INR 2.0 H (<1.2) Sodium 135 L (137-145) mmol/L Chloride 108 H (98-107) mmol/L Carbon Dioxide 21 L (22-30) mmol/L BUN 20 H (7-17) mg/dL Calcium 7.9 L (8.4-10.2) mg/dL AST 37 H (14-36) U/L Total Protein 5.7 L (6.3-8.2) g/dL Albumin 2.9 L (3.5-5.0) g/dL Thrombosis Risk Factor Assmnt - Choose All That Apply Any of the Below Risk Factors Present?: Yes Each Factor Represents 1 point: Abnormal pulmonary function (COPD), Obesity (BMI >25) Other Risk Factors: Yes Each Risk Factor Represents 2 Points: Age 61-74 years Each Risk Factor Represents 3 Points: History of DVT/PE Other congenital or acquired thrombophilia - If yes, enter type in comment: No Thrombosis Risk Factor Assessment Total Risk Factor Score: 7 Thrombosis Risk Factor Assessment Level: High Risk
[2021-07-29] MEDS ORDERED: LACTATED RINGERS 1,000 ML IV SCH (11:45)
[2021-07-29] MEDS ORDERED: KETOROLAC 15 MG/ML 1 ML VIAL IVP SCH (12:00)
[2021-07-29] MEDS ORDERED: HEPARIN SODIUM 1,000 UN/ML (10ML VL) IV PRN (15:03)
[2021-07-29] MEDS ORDERED: HEPARIN SOD,PORK IN 0.45% NACL 25,000 UNIT in 0.45% NACL 1 250ML.BAG IV SCH (15:15)
[2021-07-29] MEDS: KETOROLAC 15 MG/ML 1 ML VIAL IVP PRN ×2 (15:25→22:02)
--- NOTE | 2021-07-29 15:35 | XR ---
EXAMINATION TYPE: XR abdomen 2V DATE OF EXAM: 07/29/2021 HISTORY: Pain. Technique: 3 views of the abdomen are submitted. Comparison: None. Findings: There is no convincing evidence of pneumoperitoneum. The Bowel gas pattern is nonspecific . Dilated small bowel measuring 4.8 cm. No mass effects are noted. No renal calcifications are identified. IMPRESSION: 1. Nonspecific bowel gas pattern. Obstruction not excluded. Follow up recommended
[2021-07-29] MEDS: SODIUM CHLORIDE 0.9% 1,000 ML IV SCH (16:14)
[2021-07-29 16:52] LABS: Prothrombin Time 20.2 sec (9.0-12.0)
[2021-07-29] MEDS ORDERED: WARFARIN 3 MG TAB PO ONE (18:00)
[2021-07-29] MEDS ORDERED: PRAMIPEXOLE 0.5 MG TAB PO SCH (21:00)
[2021-07-29] MEDS ORDERED: MONTELUKAST 10 MG TAB PO SCH (21:00)
[2021-07-29] MEDS ORDERED: AMIODARONE 200 MG TAB PO SCH (21:00)
[2021-07-30] MEDS: KETOROLAC 15 MG/ML 1 ML VIAL IVP PRN (06:05)
[2021-07-30 06:12] LABS: HGB 8.8 gm/dL (11.4-16.0); Hypochromasia Marked; MCH 25.3 pg (25.0-35.0); MCHC 30.2 g/dL (31.0-37.0); MCV 83.9 fL (80.0-100.0); Mean Platelet Volume 8.1; Platelet Count 280 k/uL (150-450); RBC 3.46 m/uL (3.80-5.40); RDW 15.3 % (11.5-15.5); WBC 5.6 k/uL (3.8-10.6)
[2021-07-30 06:25] LABS: INR 2.3 (<1.2); Prothrombin Time 22.7 sec (9.0-12.0)
[2021-07-30 06:42] LABS: ALT 15 U/L (4-34); AST 33 U/L (14-36); African American GFR (CKD) >90 (>60 ml/min/1.73 sqM); Albumin 2.8 g/dL (3.5-5.0); Albumin/Globulin Ratio 1.1; Alkaline Phosphatase 92 U/L (38-126); Anion Gap 3 mmol/L; Anisocytosis (M) Present; Band Neutrophils % 5 %; Blood Urea Nitrogen 14 mg/dL (7-17); Calcium 7.9 mg/dL (8.4-10.2); Carbon Dioxide 24 mmol/L (22-30); Chloride 105 mmol/L (98-107); Eosinophils # (M) 0.17 k/uL (0-0.7); Globulin 2.6 g/dL; Glucose 87 mg/dL (74-99); Lymphocytes # (M) 1.12 k/uL (1.0-4.8); Magnesium 1.7 mg/dL (1.6-2.3); Monocytes # (M) 0.06 k/uL (0-1.0); Neutrophils % (M) 71 %; Non-African American GFR(CKD) 89 (>60 ml/min/1.73 sqM); Nucleated Red Blood Cells 0 /100 WBC (0-0); Ovalocytes Present; Poikilocytosis (M) Present; Potassium 3.8 mmol/L (3.5-5.1); Sodium 132 mmol/L (137-145); Target Cells Present; Total Bilirubin 0.6 mg/dL (0.2-1.3); Total Cells Counted 100; Total Protein 5.4 g/dL (6.3-8.2)
[2021-07-30] MEDS: PRAMIPEXOLE 0.25 MG TAB PO SCH (07:35)
[2021-07-30] MEDS: SPIRONOLACTONE 25 MG TAB PO SCH (07:36)
[2021-07-30] MEDS: FOLIC ACID 1 MG TAB PO SCH (07:36)
[2021-07-30] MEDS: ATORVASTATIN 10 MG TAB PO SCH (07:36)
[2021-07-30] MEDS: PANTOPRAZOLE 40 MG TABLET PO SCH (07:36)
[2021-07-30] MEDS: MULTIVITAMINS, THERA 1 EACH TAB PO SCH (07:36)
[2021-07-30] MEDS: FUROSEMIDE 80 MG TAB PO SCH (07:36)
[2021-07-30] MEDS: FAMOTIDINE 20 MG TAB PO SCH (07:37)
[2021-07-30] MEDS: OLANZapine 7.5 MG TAB PO SCH (07:37)
[2021-07-30 08:12] VITALS: BP 102/56; PULSE 65; RESP 16; TEMP 98.3
[2021-07-30] MEDS ORDERED: POTASSIUM CHLORIDE ER 20 MEQ TAB.ER PO SCH (09:00)
--- NOTE | 2021-07-30 12:12 | P.CONS ---
History of Present Illness - Reason for Consult Consult date: 07/30/21 wound care - History of Present Illness This is a 65-year-old patient being seen on [address]. for nonhealing ulcerations to bilateral lower extremity. Patient follows with the wound care clinic at [place] where they utilize calmoseptine, zinc wrap and compression wrap. Patient does go into the clinic 3 days a week. At this time patient has no open ulcerations. She has removed all the wraps that were placed last night. Review Of Systems: Constitutional: No fever, no chills, no night sweats. No weight change. No w eakness, fatigue or lethargy. No daytime sleepiness. Integumentary:reports wounds, no lesions. No rash or pruritus. No unusual bruising. No change in hair or nails. Physical exam: General Appearance: Alert, cooperative, no distress, appears stated age. Skin: See HPI all other Skin color, texture, tugor normal, no rashes or lesions. Neurologic: Alert oriented x3 Assessment: 1. Chronic venous hypertension with inflammation bilateral lower extremities 2. Venous insufficiency Plan: 1. Patient to continue to follow-up with [facility] wound care clinic. No dressings at this time. Thank you for the consultation any questions please contact the wound care center DNP note has been reviewed and discussed with Dr. Panda and the impression and plan of care has been directed as dictated. 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 History of Any Multi-Drug Resistant Organisms: MRSA Year Discovered:: 2017 MDRO Source:: right hand Past Surgical History: Back Surgery, Bariatric Surgery, Bowel Resection, Cardiac Valve Replacement, Section, Cholecystectomy, Hysterectomy, Joint Replacement, Orthopedic Surgery, Tonsillectomy Additional Past Surgical History / Comment(s): Bowel resection/colostomy with revision then reversal, 2 artificial cardiac valves, gastric bypass, back fusion, cervical surgery, R hand surgery, bilateral carpal tunnel releases, R total hip arthroplasty Past Anesthesia/Blood Transfusion Reactions: No Reported Reaction Additional Past Anesthesia/Blood Transfusion Reaction / Comm: Pt has received blood in past without reaction. Smoking Status: Current every day smoker - Past Family History Father Family Medical History: Unable to Obtain Additional Family Medical History / Comment(s): Father unexpectantly. Mother Family Medical History: Unable to Obtain (patient unaware) Additional Family Medical History / Comment(s): Mother had "lung and heart problems" Medications and Allergies Home Medications Medication Instructions Recorded Confirmed Type Amiodarone HCl [Pacerone] 200 mg PO HS 09/16/19 07/29/21 History Atorvastatin [Lipitor] 10 mg PO DAILY 09/16/19 07/29/21 History Folic Acid 1 mg PO DAILY 09/16/19 07/29/21 History Furosemide [Lasix] 80 mg PO BID 09/16/19 07/29/21 History Montelukast [Singulair] 10 mg PO HS 09/16/19 07/29/21 History Omeprazole [PriLOSEC] 40 mg PO DAILY 09/16/19 07/29/21 History Spironolactone 50 mg PO DAILY 09/16/19 07/29/21 History Warfarin [Coumadin] 2 mg PO SUMOWEFRSA 09/16/19 07/29/21 History traMADol HCL [Ultram] 50 mg PO Q6H PRN 01/11/20 07/29/21 History Multivitamins, Thera [Multivitamin 1 tab PO DAILY 12/13/20 07/29/21 History (formulary)] OLANZapine 7.5 mg PO DAILY 12/13/20 07/29/21 History Pramipexole Di-HCl [Mirapex] 0.75 mg PO DAILY 12/13/20 07/29/21 History Pramipexole Di-HCl [Mirapex] 1.5 mg PO HS 12/13/20 07/29/21 History Warfarin [Coumadin] 3 mg PO TUTH@2100 12/13/20 07/29/21 History Potassium Chloride [Klor-Con 20] 20 meq PO DAILY 30 Days #30 tab 12/18/20 07/29/21 Rx Famotidine [Pepcid] 20 mg PO BID #60 tab 07/30/21 Rx Loperamide [Imodium] 4 mg PO TID PRN #0 07/30/21 07/29/21 Rx Allergies Allergy/AdvReac Type Severity Reaction Status Date / Time trazodone Allergy Rapid Verified 07/29/21 03:51 Heart Rate morphine AdvReac RLS Verified 07/29/21 03:51 zolpidem [From Ambien] AdvReac Unknown Verified 07/29/21 03:51 Physical Exam Vitals: Vital Signs Temp Pulse Resp BP Pulse Ox 07/30/21 08:00 98.3 F 65 16 102/56 90 L 07/30/21 01:08 98.2 F 74 15 103/63 92 L 07/29/21 20:06 98.4 F 69 18 106/60 98 07/29/21 14:00 98.1 F 69 19 124/68 98 Intake and Output 07/29/21 07/30/21 07/30/21 22:59 06:59 14:59 Intake Total 350 147.167 Balance 350 147.167 Intake: Intake, IV Titration 147.167 Amount Heparin Sod,Pork in 0.45% 147.167 NaCl 25,000 unit In 0.45 % NaCl 1 250ml.bag @ 11. 023 UNITS/KG/HR 10 mls/hr IV .Q24H [facility] Rx#: [id number] Oral 350 Other: Voiding Method Toilet # Voids 3 # Bowel Movements 1 Results CBC & Chem 7: 07/30/21 05:28 07/30/21 05:28 Labs: Abnormal Lab Results - Last 24 Hours (Table) 07/29/21 07/29/21 07/30/21 Range/Units 15:25 22:59 05:28 RBC (3.80-5.40) m/uL Hgb (11.4-16.0) gm/dL Hct (34.0-46.0) % MCHC (31.0-37.0) g/dL PT 20.2 H 22.7 H (9.0-12.0) sec INR 2.0 H 2.3 H (<1.2) APTT 36.0 H 61.4 H (22.0-30.0) sec Sodium (137-145) mmol/L Calcium (8.4-10.2) mg/dL Total Protein (6.3-8.2) g/dL Albumin (3.5-5.0) g/dL 07/30/21 07/30/21 07/30/21 Range/Units 05:28 05:28 05:28 RBC 3.46 L (3.80-5.40) m/uL Hgb 8.8 L (11.4-16.0) gm/dL Hct 29.0 L (34.0-46.0) % MCHC 30.2 L (31.0-37.0) g/dL PT (9.0-12.0) sec INR (<1.2) APTT 83.8 H (22.0-30.0) sec Sodium 132 L (137-145) mmol/L Calcium 7.9 L (8.4-10.2) mg/dL Total Protein 5.4 L (6.3-8.2) g/dL Albumin 2.8 L (3.5-5.0) g/dL Assessment and Plan (1) Chronic venous hypertension (idiopathic) with inflammation of bilateral lower extremity Current Visit: Yes Status: Acute Code(s): I87.323 - CHRONIC VENOUS HTN W INFLAMMATION OF BILATERAL LOW EXTRM SNOMED Code(s): 836093459 (2) Venous insufficiency Current Visit: Yes Status: Acute Code(s): I87.2 - VENOUS INSUFFICIENCY (CHRONIC) (PERIPHERAL) SNOMED Code(s): 37411585 (3) Venous (peripheral) insufficiency Current Visit: Yes Status: Acute Code(s): I87.2 - VENOUS INSUFFICIENCY (CHRONIC) (PERIPHERAL) SNOMED Code(s): 14871937
--- NOTE | 2021-07-30 12:25 | P.PN ---
Subjective Progress Note Date: 07/30/21 CHIEF COMPLAINT: Abdominal pain HISTORY OF PRESENT ILLNESS: Surgical service following in regards to small bowel distraction. Patient is having multiple bowel movements and flatus. Abdominal pain has improved. Denies any nausea vomiting. She tolerated a clear liquid diet. Afebrile. WBC 5.6 hemoglobin 8.8 platelets 280 INR is 2.3 sodium 132 potassium 3.8 creatinine 0.71. Abdominal x-ray showing non-specific bowel gas pattern. Obstruction not excluded. Abdominal x-ray reviewed by Dr. Gonzalez. No evidence of obstruction. PHYSICAL EXAM: VITAL SIGNS: Reviewed GENERAL: Well-developed in no acute distress. HEENT: No sclera icterus. Extraocular movements grossly intact. Moist buccal mucosa. Head is atraumatic, normocephalic. Hears conversational speech. No nasal drainage. NECK: Supple without lymphadenopathy. CHEST: Non-labored respirations and equal bilateral excursions. CARDIOVASCULAR: Palpable 2+ radial pulses. ABDOMEN: Soft. Nondistended. Nontender. MUSCULOSKELETAL: No clubbing or cyanosis. NEUROLOGIC: No focal or lateralizing signs. Cranial nerves II through XII g rossly intact. PSYCH: Appropriate affect. Alert and oriented to person, place and time. SKIN: Well perfused. Good skin turgor. ASSESSMENT: 1. Small bowel obstruction per outside CT 2. History of intermittent abdominal pain 3. Atrial fibrillation 4. Depressive disorder 5. Hyperlipidemia 6. Congestive heart failure 7. Chronic obstructive pulmonary disease 8. Gastroesophageal reflux disease 9. Irritable bowel syndrome 10. Fibromyalgia 11. Diverticulitis 12. Angina 13. Transient ischemic attack 14. Deep venous thrombosis 15. Memory impairment 16. Pneumonia 17. Chronic renal insufficiency 18. Restless leg syndrome 19. History MRSA infection 20. Chronic back pain 21. Recurrent small bowel obstruction 22. Morbid obesity due to excess calories 23. Body mass index of 56.8, initial to 35.7 24. Tobacco abuse disorder PLAN: -Advance diet to Regular -No surgical intervention planned -Patient can be discharge from surgical standpoint Physician [employer] Sales Consultant note has been reviewed by physician. Signing provider agrees with the documented findings, assessment, and plan of care. CHIEF COMPLAINT: Abdominal pain HISTORY OF PRESENT ILLNESS: Tala Martinez is a 65-year-old female admitted for bowel obstruction. She is passing moderate flatus. She had a large bowel movement. She is tolerating liquid diet. REVIEW OF ORGAN SYSTEMS: No shortness of breath. No chest pain. No fevers or chills. PHYSICAL EXAM: VITAL SIGNS: Reviewed GENERAL: Well-developed in mild distress. HEENT: No scleral icterus. Extraocular movements grossly intact. Hears conver sational speech. No nasal drainage. CHEST: Nonlabored respirations with equal bilateral excursions. CARDIOVASCULAR: Regular rate and regular rhythm. Distal 2+ pulses. ABDOMEN: Resolved diffuse tenderness MUSCULOSKELETAL: No clubbing, cyanosis. Bilateral chronic venous insufficiency NEURO: No focal or lateralizing signs. Cranial nerves 2 through 12 grossly within normal limits. PSYCH: Appropriate affect. Alert and oriented to person, place and time. SKIN: Good skin turgor. Well perfused. LABS: Reviewed. White blood cell count normal. ASSESSMENT: 1. Small bowel obstruction per outside CT 2. History of intermittent abdominal pain 3. Atrial fibrillation 4. Depressive disorder 5. Hyperlipidemia 6. Congestive heart failure 7. Chronic obstructive pulmonary disease 8. Gastroesophageal reflux disease 9. Irritable bowel syndrome 10. Fibromyalgia 11. Diverticulitis 12. Angina 13. Transient ischemic attack 14. Deep venous thrombosis 15. Memory impairment 16. Pneumonia 17. Chronic renal insufficiency 18. Restless leg syndrome 19. History MRSA infection 20. Chronic back pain 21. Recurrent small bowel obstruction 22. Morbid obesity due to excess calories 23. Body mass index of 56.8, initial to 35.7 24. Tobacco abuse disorder PLAN: 1. Her symptoms have improved as she had a large bowel movement and her abdominal pain has resolved. 2. Resume anticoagulation 3. May have regular diet 4. May discharge when medically stable. Objective - Vital Signs Vital signs: Vital Signs Temp 98.3 F 07/30/21 08:00 Pulse 65 07/30/21 08:00 Resp 16 07/30/21 08:00 BP 102/56 07/30/21 08:00 Pulse Ox 90 L 07/30/21 08:00 Intake & Output 07/29/21 07/30/21 07/30/21 18:59 06:59 18:59 Intake Total 350 147.167 Balance 350 147.167 Weight 90.718 kg Intake: Intake, IV Titration 147.167 Amount Heparin Sod,Pork in 0.45% 147.167 NaCl 25,000 unit In 0.45 % NaCl 1 250ml.bag @ 11. 023 UNITS/KG/HR 10 mls/hr IV .Q24H [facility] Rx#: [id number] Oral 350 Other: Voiding Method Toilet Toilet # Voids 3 # Bowel Movements 1 1 - Labs CBC & Chem 7: 07/30/21 05:28 07/30/21 05:28 Labs: Abnormal Lab Results - Last 24 Hours (Table) 07/29/21 07/29/21 07/29/21 Range/Units 08:21 15:25 22:59 RBC (3.80-5.40) m/uL Hgb (11.4-16.0) gm/dL Hct (34.0-46.0) % MCHC (31.0-37.0) g/dL PT 20.2 H (9.0-12.0) sec INR 2.0 H (<1.2) APTT 36.0 H 61.4 H (22.0-30.0) sec Sodium 135 L (137-145) mmol/L Chloride 108 H (98-107) mmol/L Carbon Dioxide 21 L (22-30) mmol/L BUN 20 H (7-17) mg/dL Calcium 7.9 L (8.4-10.2) mg/dL AST 37 H (14-36) U/L Total Protein 5.7 L (6.3-8.2) g/dL Albumin 2.9 L (3.5-5.0) g/dL 07/30/21 07/30/21 07/30/21 Range/Units 05:28 05:28 05:28 RBC 3.46 L (3.80-5.40) m/uL Hgb 8.8 L (11.4-16.0) gm/dL Hct 29.0 L (34.0-46.0) % MCHC 30.2 L (31.0-37.0) g/dL PT 22.7 H (9.0-12.0) sec INR 2.3 H (<1.2) APTT (22.0-30.0) sec Sodium 132 L (137-145) mmol/L Chloride (98-107) mmol/L Carbon Dioxide (22-30) mmol/L BUN (7-17) mg/dL Calcium 7.9 L (8.4-10.2) mg/dL AST (14-36) U/L Total Protein 5.4 L (6.3-8.2) g/dL Albumin 2.8 L (3.5-5.0) g/dL 07/30/21 Range/Units 05:28 RBC (3.80-5.40) m/uL Hgb (11.4-16.0) gm/dL Hct (34.0-46.0) % MCHC (31.0-37.0) g/dL PT (9.0-12.0) sec INR (<1.2) APTT 83.8 H (22.0-30.0) sec Sodium (137-145) mmol/L Chloride (98-107) mmol/L Carbon Dioxide (22-30) mmol/L BUN (7-17) mg/dL Calcium (8.4-10.2) mg/dL AST (14-36) U/L Total Protein (6.3-8.2) g/dL Albumin (3.5-5.0) g/dL
[2021-07-30] MEDS: SODIUM CHLORIDE 0.9% 1,000 ML IV SCH (13:04)
--- NOTE | 2021-07-30 19:39 | P.DS ---
Providers Date of admission: 07/29/21 05:22 Expected date of discharge: 07/30/21 Attending physician: Devon Jerry MD Consults: 07/29/21 05:23 Consult Physician Routine Consulting Provider: Lupis Gonzalez Consult Reason/Comments: smAll bowel obstruction Do you want consulting provider notified?: Yes Primary care physician: Radha Guerrero MD Hospital Course: Discharge Diagnosis: Small bowel obstruction Chronic anemia Paroxysmal A fib Mitral/Aortic Valve replacement Chronic CHF with unknown EF Fibromyalgia History of CVA with resultant memory impairment History of DVT COPD without exacerbation Hospital Course: Patient is a 65-year-old female with a complex medical history including aortic and mitral valve replacement mechanical on Coumadin, COPD, COPD, hypertension, dyslipidemia, and prior colostomy with reversal secondary to diverticulitis who presented initially to [facility] with complaints of abdominal pain. There she underwent an extensive evaluation was found to have a small bowel obstruction. She was subsequently transferred here she is followed with Dr. Gonzalez in the past. She was maintained on nothing by mouth status. She started having bowel movements on her own without significant intervention. She was started on a diet which she tolerated. She was determined stable for discharge home. Follow-up: Patient to stop taking scheduled Imodium. Dr. Guerrero in 1-2 days, Dr. Bullock as needed. Patient seen and examined at bedside. Her abdominal pain is resolved. She continues to have some bowel movement consistent liquid and solids. We discussed that she could cut down on her Imodium uses she has chronic diarrhea after gastric bypass. She is aware she needs to follow with Dr. Bullock. Vital signs reviewed and stable. General: non toxic, no distress, appears older than stated age Derm: warm, dry Head: atraumatic, normocephalic, symmetric Eyes: EOMI, no lid lag, anicteric sclera Mouth: no lip lesion, mucus membranes moist Cardiovascular: [S1S2 reg with systolic murmur with mechanical click positive posterior tibial pulse bilateral, Lungs: CTA bilateral, no rhonchi, no rales , no accessory muscle use Abdominal: soft, nontender to palpation, no guarding, no appreciable organomegaly Ext: no gross muscle atrophy, no edema, no contractures Neuro: CN II-XI grossly intact, no focal neuro deficits Psych: Alert, oriented, appropriate affect A total of minutes of time were spent preparing this complex discharge summary . Patient Condition at Discharge: Fair Plan - Discharge Summary Discharge Rx Participant: No New Discharge Prescriptions: New Famotidine [Pepcid] 20 mg PO BID #60 tab Continue Amiodarone HCl [Pacerone] 200 mg PO HS Atorvastatin [Lipitor] 10 mg PO DAILY Folic Acid 1 mg PO DAILY Furosemide [Lasix] 80 mg PO BID Montelukast [Singulair] 10 mg PO HS Omeprazole [PriLOSEC] 40 mg PO DAILY Spironolactone 50 mg PO DAILY Warfarin [Coumadin] 2 mg PO SUMOWEFRSA traMADol HCL [Ultram] 50 mg PO Q6H PRN PRN Reason: Pain Warfarin [Coumadin] 3 mg PO TUTH@2100 Pramipexole Di-HCl [Mirapex] 1.5 mg PO HS OLANZapine 7.5 mg PO DAILY Multivitamins, Thera [Multivitamin (formulary)] 1 tab PO DAILY Potassium Chloride [Klor-Con 20] 20 meq PO DAILY 30 Days #30 tab Pramipexole Di-HCl [Mirapex] 0.75 mg PO DAILY Changed Loperamide [Imodium] 4 mg PO TID PRN #0 PRN Reason: Diarrhea Discharge Medication List Amiodarone HCl [Pacerone] 200 mg PO HS 09/16/19 [History] Atorvastatin [Lipitor] 10 mg PO DAILY 09/16/19 [History] Folic Acid 1 mg PO DAILY 09/16/19 [History] Furosemide [Lasix] 80 mg PO BID 09/16/19 [History] Montelukast [Singulair] 10 mg PO HS 09/16/19 [History] Omeprazole [PriLOSEC] 40 mg PO DAILY 09/16/19 [History] Spironolactone 50 mg PO DAILY 09/16/19 [History] Warfarin [Coumadin] 2 mg PO SUMOWEFRSA 09/16/19 [History] traMADol HCL [Ultram] 50 mg PO Q6H PRN 01/11/20 [History] Multivitamins, Thera [Multivitamin (formulary)] 1 tab PO DAILY 12/13/20 [History] OLANZapine 7.5 mg PO DAILY 12/13/20 [History] Pramipexole Di-HCl [Mirapex] 0.75 mg PO DAILY 12/13/20 [History] Pramipexole Di-HCl [Mirapex] 1.5 mg PO HS 12/13/20 [History] Warfarin [Coumadin] 3 mg PO TUTH@2100 12/13/20 [History] Potassium Chloride [Klor-Con 20] 20 meq PO DAILY 30 Days #30 tab 12/18/20 [Rx] Famotidine [Pepcid] 20 mg PO BID #60 tab 07/30/21 [Rx] Loperamide [Imodium] 4 mg PO TID PRN #0 07/30/21 [Rx] Follow up Appointment(s)/Referral(s): Lupis Gonzalez MD [STAFF PHYSICIAN] - As Needed Radha Guerrero MD [Primary Care Provider] - 1-2 days (Please call for your appointment, Thank you.) Patient Instructions/Handouts: Bowel Obstruction (DC) Activity/Diet/Wound Care/Special Instructions: Activity: as tolerated Diet: heart health, 2L fluid restriction Wound Care: Follow-up with wound care for your dressing change tomorrow as indicated, keep legs elevated Special Instructions: Consider decreased imodium to as needed for diarrhea instead of scheduled Thank you for trusting us with your care, we wish you well on your journey to better health Discharge Disposition: HOME SELF-CARE
== END 2021-07-30 14:00 | disposition home or self-care (01) | DRG 389 ==
LOC: EC 03:48 → 4SSUR 05:22
PROVIDERS: ADMIT Internal Medicine; ATTEND Internal Medicine
DX: K56.609 Unspecified intestinal obstruction, unspecified as to partial versus complete obstruction (principal); I13.0 Hypertensive heart and chronic kidney disease with heart failure and stage 1 through stage 4 chronic kidney disease, or unspecified chronic kidney disease; Z68.43 Body mass index [BMI] 50.0-59.9, adult; D64.9 Anemia, unspecified; E66.01 Morbid (severe) obesity due to excess calories; E78.5 Hyperlipidemia, unspecified; F17.210 Nicotine dependence, cigarettes, uncomplicated; F32.A Depression, unspecified; G25.81 Restless legs syndrome; G89.29 Other chronic pain; I48.0 Paroxysmal atrial fibrillation; I50.9 Heart failure, unspecified; I87.2 Venous insufficiency (chronic) (peripheral); I87.309 Chronic venous hypertension (idiopathic) without complications of unspecified lower extremity; K21.9 Gastro-esophageal reflux disease without esophagitis; J44.9 Chronic obstructive pulmonary disease, unspecified; K58.9 Irritable bowel syndrome, unspecified; I69.311 Memory deficit following cerebral infarction; M79.7 Fibromyalgia; N18.9 Chronic kidney disease, unspecified; Z79.01 Long term (current) use of anticoagulants; Z79.899 Other long term (current) drug therapy; Z86.14 Personal history of Methicillin resistant Staphylococcus aureus infection; Z86.16 Personal history of COVID-19; Z86.19 Personal history of other infectious and parasitic diseases; Z86.718 Personal history of other venous thrombosis and embolism; Z87.01 Personal history of pneumonia (recurrent); Z90.710 Acquired absence of both cervix and uterus; Z93.3 Colostomy status; Z95.2 Presence of prosthetic heart valve; Z96.641 Presence of right artificial hip joint; Z98.1 Arthrodesis status; Z98.84 Bariatric surgery status; Z87.440 Personal history of urinary (tract) infections; Z88.8 Allergy status to other drugs, medicaments and biological substances; Z88.5 Allergy status to narcotic agent; Z87.19 Personal history of other diseases of the digestive system
CPT/HCPCS: 74019; 80053; 83735; 84100; 85025; 85610; 85730; 93005